=== PATIENT | female | born 1965 | race Caucasian/White ===

== ENCOUNTER → 2020-07-01 11:38 | Outpatient (CLI) | payer BC, SELFPAY | PROVIDERS: PCP Family Medicine; Visit Provider Family Medicine | DX: I49.9 Cardiac arrhythmia, unspecified (principal) ==

== ENCOUNTER → 2020-07-04 09:19 | Outpatient (CLI) | payer BC, SELFPAY ==
--- NOTE | 2020-07-04 09:25 | CA_ITS ---
APPROVED REPORT EXAM: Comprehensive 2D, Doppler, and color-flow Echocardiogram Home Day Care Provider: Zhanna Harrington RT(R) Ht: 5 ft 4 in Wt: 184lbs BSA: 1.89 BP: 122/70 mmHg Indications: dysrhythmia, CP, palpitations, family hx of HD 2D Dimensions LVOT 1.85 cm (M/F) 1.5-2.5 M-Mode Dimensions RVDd 2.00 cm (0.9-2.6) LVDd 4.29 cm (3.5-5.7) LVDs 3.25 cm (3.5-5.7) IVSd 0.75 cm (0.6-1.1) PWd 0.96 cm (0.6-1.1) EF (Teich) 48.50% FS 24.20% EDV (Teich) 82.60 mL ESV (Teich) 42.50 mL LV Diastology E/A Ratio 0.68 Mitral Valve MV A Velocity 107.00 (40-130 cm/s) Left Ventricle Left atrium is mildly enlarged, left ventricle is normal size, mild concentric left ventricular hypertrophy, visually estimated ejection fraction 45%, there is moderate hypokinesis involving mid to distal septum and apical wall. Endocardial surfaces are poorly visualized. Grade 1 diastolic dysfunction seen with tissue Doppler evidence of raise left atrial pressure. Right Ventricle Right atrium and right ventricular normal size and contractility. Aortic Valve Aortic valve is minimally thickened and fibrosed, there is no aortic stenosis, there is mild aortic insufficiency. Mitral Valve Mitral valve is grossly normal, there is mild mitral regurgitation. Tricuspid Valve Tricuspid valve grossly normal, there is mild tricuspid regurgitation, tricuspid regurgitation jet velocity is inadequate for calculation of the right ventricular systolic pressure. Pulmonic Valve Pulmonic valve is poorly visualized. Great Vessels Aortic root is normal size. Pericardium No significant pericardial effusion noted. Conclusion 1. Mildly enlarged left atrium, normal left ventricular size, mild concentric left ventricular hypertrophy, visually estimated ejection fraction of 45% with segmental wall motion abnormality described above, grade 1 diastolic dysfunction seen with tissue Doppler evidence of raise left atrial pressure. 2. Thickened and calcified aortic valve without aortic stenosis, there is mild aortic insufficiency. 3. Mild mitral and tricuspid regurgitation. 4. No significant pericardial effusion noted. Electronically signed by : Mack Kirk, 07/04/2020 15:32:27
== END ==
PROVIDERS: PCP Family Medicine; Visit Provider Family Medicine
DX: I49.9 Cardiac arrhythmia, unspecified (principal)
CPT/HCPCS: 93306

== ENCOUNTER → 2021-12-01 12:51 | Outpatient (CLI) | payer BC, SELFPAY | PROVIDERS: PCP Family Medicine; Visit Provider Family Medicine | DX: R07.9 Chest pain, unspecified (principal); I20.9 Angina pectoris, unspecified; I35.1 Nonrheumatic aortic (valve) insufficiency; I51.9 Heart disease, unspecified; R06.83 Snoring; R40.0 Somnolence; Z95.5 Presence of coronary angioplasty implant and graft | CPT/HCPCS: 93306 ==

== ENCOUNTER → 2021-12-10 07:32 | Outpatient (CLI) | payer BC, SELFPAY ==
--- NOTE | 2021-12-10 07:32 | NM_ITS ---
APPROVED REPORT Exam: Nuclear Stress Test Indication: cad, h/o mi, family hx, c.p., angina Patient Location: Outpatient Stress Tech: Jordyn Grayson [place] Tech:Karla Ríos, ARRT, RT (R)(N) Ht: 5 ft 4 in Wt: 180 lbs Bra Size: 38F HR: 77 bpm BP: 165/89 mmHg BSA: 1.87 m2 BMI: 30.8 History: cad, h/o mi, family hx, c.p., angina Procedure: Patient exercised on Nader protocol 7:46 minutes and sec, resting heart rate 77 bpm, resting blood pressure 165/89 mmHg, with exercise maximum heart rate achived was 169 bpm which is 102 % of the maximum predicted heart rate and blood pressure was 195/94 mmHg. Test was stopped due to soa. Patient denied any complaint of chest pain. Patient has good exercise capacity, achieved 10.1 METs of workload on treadmill, the blood pressure response to exercise was Adequate. Electrocardiogram Resting electrocardiogram shows sinus rhythm, with exercise there is 1.[address] segment depression noted from the baseline EKG. The EKG portion of the exercise Myoview is positive for ischemia. Cardiac Stress and Resting SPECT Images: Cardiac Stress and Resting SPECT images were obtained using technetium 99m Myoview 32.1 mCi stress and 10.83 mCi at rest. Gated SPECT for analysis of segmental wall motion evaluation of the ejection fraction also done. Cardiac stress and resting SPECT images show uniform myocardial activity without segmental ventricular ejection fraction 61% with no regional wall motion abnormality, right ventricle is normal size and contractility. Conclusion: 1. The EKG portion of the exercise Myoview is positive for ischemia, patient has good exercise capacity 15.1 METs of workload on treadmill, the blood pressure response to exercise was adequate, there was no signs of excessive function. 2. No scintigraphic evidence of reversible ischemia seen at this level of computer derived ejection fraction is 61% with no regional wall motion abnormality, right ventricle is normal size and contractility. Electronically signed by : Mack Kirk MD 12/10/2021 19:27:13
--- NOTE | 2021-12-10 09:34 | CA_ITS ---
APPROVED REPORT Exam: Exercise Treadmill Technologist: Jordyn Nogueira, Ht: 5 ft 4 in Wt: 192 lbs BSA: 1.92 m2 HR: 77 bpm BP: 163/89 mmHg Medical History Medications: Aspirin,,,,, Albuterol,,,,, Nitroglycerin,,,,, Vitamin C, D3, B-12,,,,, Stress Test Details Test: Manual Treadmill HR Resting HR: 77 bpm Max Heart Rate (APMHR): 166.277636 bpm Max HR Achieved: 169 bpm Target HR (85% APMHR): 141.230137 bpm % of APMHR: 101.81 Recovery HR: 106 bpm BP Resting BP: 160/94 mmHg Max BP: 195/94 mmHg Recovery BP: 139.0/83.0 mmHg ECG Resting ECG: NSR, PVC Clinical Exercise duration: 07:46 min Highest Stage Achieved: Stage 3: 3.4 mph at 14% grade. Exercise capacity: 10.1 METs Stress ECG Conclusion Exercised 7:46 into Stage III of Nader Protocol. Max HR: 169 % of PM: 102% Max BP: 195/94 METs: 10.1 Test stopped due to: SOA, fatigue. Symptoms: No CP. Arrhythmias/Ectopy: Occ PAC. Rare PVC. ST-T Changes: 1-1.5mm horizontal ST depression laterally and inferiorly. Conclusion: Border (+) EKG changes for ischemia. Myoview images reported separately. Test Summary REST . . . . . . . Sitting REST . . . . . . . Standing REST 04:16 0.0 0.0 77 . 160/ 94 . . Stage 1 01:00 10.0 1.7 107 . . . . Stage 1 02:00 10.0 1.7 114 . . . . Stage 1 03:00 10.0 1.7 118 . 178/ 90 . . Stage 2 01:00 12.0 2.5 128 . . . . Stage 2 02:00 12.0 2.5 136 . . . . Stage 2 03:00 12.0 2.5 139 . 195/ 94 . . Stage 3 01:00 14.0 3.4 161 . . . . Stage 3 . . . . . . . Protocol changed to Manual Treadmill Stage 3 01:46 14.0 3.0 169 . . . Stop exercise at 07:46 RECOVERY 01:00 0.0 0.0 138 . . . . RECOVERY 02:00 0.0 0.0 123 . 188/ 88 . . RECOVERY 03:00 0.0 0.0 109 . 184/ 79 . . RECOVERY 04:00 0.0 0.0 107 . 153/ 73 . . RECOVERY 05:00 0.0 0.0 109 . 153/ 73 . . RECOVERY 06:00 0.0 0.0 103 . 165/ 82 . . RECOVERY 07:00 0.0 0.0 107 . 165/ 82 . . RECOVERY 08:00 0.0 0.0 106 . 165/ 82 . . RECOVERY 09:00 0.0 0.0 101 . 139/ 83 . . RECOVERY 09:18 0.0 0.0 105 . 139/ 83 . . Electronically signed by : Mack Kirk MD 12/10/2021 19:24:11
== END ==
PROVIDERS: PCP Family Medicine; Visit Provider Nurse Practitioner Family
DX: R07.9 Chest pain, unspecified (principal); I20.9 Angina pectoris, unspecified; I35.1 Nonrheumatic aortic (valve) insufficiency; I51.9 Heart disease, unspecified; R06.83 Snoring; R40.0 Somnolence; Z95.5 Presence of coronary angioplasty implant and graft
CPT/HCPCS: 78452; 93017; A9502

== ENCOUNTER → 2021-12-16 13:46 | Outpatient (CLI) | payer BC, SELFPAY | PROVIDERS: PCP Family Medicine; Visit Provider Internal Medicine Cardiovascular Disease | DX: G47.30 Sleep apnea, unspecified (principal); R06.83 Snoring; R40.0 Somnolence | CPT/HCPCS: 95806 ==

== ENCOUNTER 2021-12-17 23:28 | Emergency (ER) | payer BC, SELFPAY ==
--- NOTE | 2021-12-17 23:27 | ECG_ITS ---
APPROVED REPORT Exam: Resting ECG HR:80 bpm ECG Measurements Heart Rate 80 AXES VT 145 P 56 QRSd 80 QRS 31 QT 361 T 65 QTc 397 Conclusion SINUS RHYTHM LOW QRS VOLTAGE IN PRECORDIAL LEADS [QRS DEFLECTION < 1.0 mV IN CHEST LEADS] BORDERLINE ECG UNCONFIRMED REPORT Electronically signed by : Raudel Burger MD 12/19/2021 19:45:54
[2021-12-17 23:28] VITALS: BP 154/92; PULSE 81; RESP 18; TEMP 37.1; O2SAT 97; BMI 30.9
--- NOTE | 2021-12-17 23:30 | XR_ITS ---
PROCEDURE INFORMATION: Exam: XR Chest Exam date and time: 12/17/2021 11:37 PM Age: 56 years old Clinical indication: Other: Palpitations; Prior surgery; Surgery type: Cardiac stent TECHNIQUE: Imaging protocol: XR of the chest. Views: 1 view. COMPARISON: No relevant prior studies available. FINDINGS: Lungs: Unremarkable. No consolidation. Pleural spaces: Unremarkable. No pleural effusion. No pneumothorax. Heart/Mediastinum: Unremarkable. No cardiomegaly. Bones/joints: Mild levoconvex midthoracic scoliosis which may be positional in nature. Otherwise unremarkable. IMPRESSION: No evidence of acute intrathoracic disease.
--- NOTE | 2021-12-17 23:32 | HMH.EDGENADL ---
ED Disposition Clinical Impression: Palpitations Disposition: Home, Self-Care Condition on Discharge: Fair Instructions: DI for Palpitations Additional Instructions: You have been evaluated for palpitations. Your heart has been in normal sinus rhythm while in the emergency department. Please follow-up with your primary care doctor in 1 to 2 days. Call your supervisor cold rolling for outpatient follow-up. They may have you wear a cardiac event monitor, called a Holter monitor. Please return to the emergency department at once if you have any new or worsening symptoms, pain or other concerns. Time of Disposition: 02:17 - Critical Care Critical Care Time: No Attestation: On , the high probability of a clinically significant, sudden or life threatening deterioration of the following system(s) required my full and direct attention, intervention and personal management. The time I documented below is in addition to time spent performing reported procedures but includes the following listed in this critical care notation. Medical Decision Making - Medical Records Medical records reviewed: Yes: I reviewed the patient's medical records. - Nathan Inquiry Pt receiving controlled substance: No Vital Signs: 12/17/21 23:28 12/18/21 00:30 Temperature 98.8 F Temperature Source Oral Pulse Rate 78 Pulse Rate [Right Radial] 81 Respiratory Rate 18 14 Blood Pressure 140/80 Blood Pressure [Right Arm] 154/92 H Blood Pressure Mean [Right Arm] 112 Blood Pressure Source [Right Arm] Automatic Cuff Blood Pressure Position [Right Arm] Sitting 02 Sat by Pulse Oximetry 97 94 L Oxygen Delivery Method Room Air Room Air - Lab Data Lab Results 12/17/21 23:38: WBC 8.5, RBC 4.85, Hgb 14.8, Hct 44.3, MCV 91.3, MCH 30.5, MCHC 33.4, RDW 12.6, Plt Count 278, MPV 8.1, Neut % (Auto) 58.5, Lymph % (Auto) 28.7, [place] % (Auto) 6.4, Eos % (Auto) 3.3, Baso % (Auto) 3.1 H, Neut # (Auto) 5.0, Lymph # (Auto) 2.5, [place] # (Auto) 0.6, Eos # (Auto) 0.3, Baso # (Auto) 0.3 H 12/17/21 23:38: Sodium 139, Potassium 4.0, Chloride 102, Carbon Dioxide 31 H, Anion Gap 10.0, BUN 15, Creatinine 0.80, Estimated Creat Clear 104, Estimated GFR 75, Est GFR ( Amer) 90, Glucose 116 H, Calcium 8.8, Phosphorus 4.1, Magnesium 1.9, Total Bilirubin 0.8, AST 44 H, ALT 26, Alkaline Phosphatase 94, Troponin I < 0.01, Total Protein 7.3, Albumin 4.3, Globulin 3.0, Albumin/Globulin Ratio 1.4, TSH 2.16 Result diagrams: 12/17/21 23:38 12/17/21 23:38 Orders (Tests/Meds): ED MEDICATIONS Discontinued Medications Generic Name Dose Route Start Last Admin Trade Name Freq PRN Reason Stop Dose Admin Aspirin 162 mg 12/17/21 23:51 12/17/21 23:53 Aspirin 81mg Chewable Tablet PO 12/17/21 23:52 162 mg ONCE ONE Administration ORDERS Category Date Time Status Troponin I Q3H Lab 12/18/21 02:45 Ordered Troponin I Q3H Lab 12/18/21 05:45 Ordered - ECG Data Tracing #1 Sinus rhythm with ventricular rate of 80 bpm. QRS 80, QTc 397. No ST segment elevation. No arrhythmia. - SURYA Score for Non-Stemi Age of Patient: 50-59 years old Heart Rate: 70-89 bpm Systolic Blood Pressure: 140-159 mmHg Serum Creatinine: 0.40-0.79 mg/dl CHF [place] Class: I-No CHF Other Risk Factors: None Non-Stemi Risk Score: 78 Medical Decision Narrative: In summary this is a 56-year-old female with history of hypertension, hyperlipidemia, CAD presenting to the emergency department with palpitations. Patient clinically stable on arrival. Vital signs within normal limits. Her initial heart rate is 80 bpm. Concern for cardiac arrhythmia, electrolyte derangement, thyroid disorder, CAD. Will obtain CBC, CMP, chest x-ray, EKG, troponin profile, magnesium, phosphorus level, TSH. EKG shows sinus rhythm without evidence of ischemia or arrhythmia. Laboratory results reassuring. No abnormality of glucose or electrolytes to explain palpitations. Initial troponin undetectable.
[2021-12-17 23:50] LABS: Basophils # 0.3 K/mm3 (0-0.2); Basophils % 3.1 % (0.1-2.0); Eosinophils # 0.3 K/mm3 (0.0-0.4); Eosinophils % 3.3 % (0.1-12.0); Hematocrit 44.3 % (37.0-47.0); Hemoglobin 14.8 g/dL (12.2-16.2); Lymphocytes # 2.5 K/mm3 (0.7-4.5); Lymphocytes % 28.7 % (10-50); Mean Corpuscular HGB Conc 33.4 g/dL (31.8-35.4); Mean Corpuscular Hemoglobin 30.5 pg (27.0-31.2); Mean Corpuscular Volume 91.3 fl (81-99); Mean Platelet Volume 8.1 fl (7.4-10.4); Monocytes # 0.6 K/mm3 (0.1-1.0); Monocytes % 6.4 % (1.7-9.3); Neutrophils % 58.5 % (37.0-80.0); Platelet Count 278 K/mm3 (142-424); Red Blood Count 4.85 M/mm3 (4.20-5.40); Red Cell Distribution Width 12.6 % (11.5-17.5); White Blood Count 8.5 K/mm3 (4.8-10.8)
[2021-12-18 00:01] LABS: Alanine Aminotransferase 26 U/L (12-78); Albumin Level 4.3 g/dl (3.5-5.0); Albumin/Globulin Ratio 1.4 (1.1-1.8); Alkaline Phosphatase 94 U/L (38-126); Aspartate Amino Transferase 44 U/L (14-36); Bilirubin,Total 0.8 mg/dl (0.2-1.3); Blood Urea Nitrogen 15 mg/dl (7-17); Calcium 8.8 mg/dl (8.4-10.2); Carbon Dioxide 31 mmol/L (22.0-30.0); Chloride 102 mmol/L (98-107); Creatinine Clearance Estimated 104 mL/min (50-200); Estimated Glomerular Filt Rate 75 ml/min (>60); GFR (African American) 90 ML/MIN (>60); Glucose 116 mg/dl (74-100); Magnesium 1.9 mg/dl (1.6-2.3); Phosphorous 4.1 mg/dl (2.5-4.5); Sodium 139 mmol/L (136-145); Total Protein,Serum 7.3 g/dl (6.3-8.2)
[2021-12-18 00:25] LABS: Troponin I < 0.01 ng/ml (0.00-0.034)
[2021-12-18 00:30] VITALS: BP 140/80; PULSE 78; RESP 14; O2SAT 94
[2021-12-18 00:31] LABS: Thyroid Stimulating Hormone 2.16 uIU/mL (0.465-4.68)
[2021-12-18 01:00] VITALS: BP 139/77; PULSE 84; RESP 20; O2SAT 93
[2021-12-18 01:30] VITALS: BP 137/78; PULSE 81; RESP 14; O2SAT 92
--- NOTE | 2021-12-18 01:49 | PC.NURSE ---
requesting 2 hr troponin, drawing at this time
--- NOTE | 2021-12-18 01:51 | PC.NURSE ---
TROP DRAWN AT THIS TIME PER MD REQUEST. PT TOLERATED WELL. PT UPDATED WITH PLAN OF CARE AND EXPECTED WAIT TIMES. FAMILY REMAINS AT BEDSIDE.
[2021-12-18 02:00] VITALS: BP 133/76; PULSE 77; RESP 12; O2SAT 91
[2021-12-18 02:29] LABS: Troponin I < 0.01 ng/ml (0.00-0.034)
[2021-12-18 02:30] VITALS: BP 138/72; PULSE 73; RESP 16; O2SAT 94
[2021-12-18 02:50] VITALS: BP 138/72; PULSE 74; RESP 19; TEMP 36.9; O2SAT 95
== END 2021-12-18 03:02 | disposition home or self-care (01) ==
PROVIDERS: Emergency Provider Emergency Medicine; PCP Family Medicine
DX: R00.2 Palpitations (principal); I10 Essential (primary) hypertension; E78.5 Hyperlipidemia, unspecified; I25.10 Atherosclerotic heart disease of native coronary artery without angina pectoris; I25.2 Old myocardial infarction; Z79.899 Other long term (current) drug therapy
CPT/HCPCS: 71045; 80053; 83735; 84100; 84443; 84484; 85025; 93005; 99283

== ENCOUNTER → 2021-12-22 09:41 | Outpatient (CLI) | payer BC, SELFPAY ==
[2021-12-22 12:20] LABS: Basophils # 0.1 K/mm3 (0-0.2); Basophils % 1.6 % (0.1-2.0); Eosinophils # 0.2 K/mm3 (0.0-0.4); Eosinophils % 3.3 % (0.1-12.0); Hematocrit 45.2 % (37.0-47.0); Hemoglobin 15.1 g/dL (12.2-16.2); Lymphocytes # 2.4 K/mm3 (0.7-4.5); Lymphocytes % 43.5 % (10-50); Mean Corpuscular HGB Conc 33.4 g/dL (31.8-35.4); Mean Corpuscular Hemoglobin 30.6 pg (27.0-31.2); Mean Corpuscular Volume 91.6 fl (81-99); Mean Platelet Volume 8.3 fl (7.4-10.4); Monocytes # 0.4 K/mm3 (0.1-1.0); Monocytes % 7.3 % (1.7-9.3); Neutrophils # 2.5 K/mm3 (1.8-7.8); Neutrophils % 44.3 % (37.0-80.0); Platelet Count 272 K/mm3 (142-424); Red Blood Count 4.93 M/mm3 (4.20-5.40); Red Cell Distribution Width 12.5 % (11.5-17.5); White Blood Count 5.6 K/mm3 (4.8-10.8)
[2021-12-22 13:55] LABS: Chloride 102 mmol/L (98-107); Sodium 138 mmol/L (136-145)
[2021-12-22 13:58] LABS: Blood Urea Nitrogen 12 mg/dl (7-17); Estimated Glomerular Filt Rate 87 ml/min (>60); GFR (African American) 106 ML/MIN (>60)
[2021-12-22 13:59] LABS: Calcium 8.4 mg/dl (8.4-10.2); Carbon Dioxide 33 mmol/L (22.0-30.0); Glucose 87 mg/dl (74-100)
== END ==
PROVIDERS: PCP Psychiatry & Neurology Sleep Medicine; Visit Provider Nurse Practitioner Family
DX: Z01.812 Encounter for preprocedural laboratory examination (principal); Z11.52 Encounter for screening for COVID-19; I25.10 Atherosclerotic heart disease of native coronary artery without angina pectoris; I35.1 Nonrheumatic aortic (valve) insufficiency; I51.9 Heart disease, unspecified; R94.30 Abnormal result of cardiovascular function study, unspecified; Z95.5 Presence of coronary angioplasty implant and graft
CPT/HCPCS: 36415; 80048; 85025; C9803; U0003; U0005

== ENCOUNTER 2021-12-25 07:51 | Day surgery (SDC) | payer BC, SELFPAY ==
[2021-12-25] VITALS (14 sets, daily range): BP systolic 91–135; BP diastolic 48–92; PULSE 64–83; RESP 16–18; TEMP 36.3–36.8; O2SAT 95–99; BMI 32.5
--- NOTE | 2021-12-25 | IR_ITS ---
APPROVED REPORT Patient Location: Outpatient Research Biostatistician: HAYLIE Hernandez RT (R) PROCEDURES Left heart catheterization Left ventriculogram Selective coronary angiogram Informed consent was obtained prior to the procedure. COMPLICATIONS NONE Estimated Blood Loss: LESS THAN 10 ML TECHNIQUE One percent lidocaine used to anesthetize the right anterior aspect of the wrist. The right radial artery was accessed via the Seldinger technique. A 6 [place] sheath was placed in the right radial artery. 2.5 mg of verapamil, 800 mcg of nitroglycerin, 1mg Lidocaine and 5000 U Heparin were given through the arterial sheath. The catheter would not pass therefore a 4 [place] JL4 and JR4 catheter were eventually negotiated through the brachial artery with the addition of nitroglycerin to eliminate spasm. After the left heart catheterization left ventriculogram and selective coronary angiogram were complete the apparatus was removed the sheath was removed and hemostasis was achieved using TR banding patient was transferred to the postop already in stable addition ANGIOGRAPHIC RESULTS The left main artery Normal The left anterior descending artery Has a stent in the proximal segment which is widely patent with 30% in-stent restenosis The circumflex artery Nondominant normal The right coronary artery Dominant normal The MUNGUIA ventriculogram reveals Normal 65% The left ventricular end-diastolic pressure 20 mmHg IMPRESSION Widely patent proximal LAD stent Normal ejection fraction Mildly elevated LVEDP PLAN 1. Treatment diastolic dysfunction 2. Continue risk factor modification 3. Medical management Electronically signed by : Jonn Vazquez MD 12/25/2021 10:44:05
--- NOTE | 2021-12-25 11:00 | SUR.PHASEII ---
Received report from Sebastian CoulterRN @ [phone]
--- NOTE | 2021-12-25 11:31 | SUR.PHASEII ---
Pt sitting up eating meal tray provided by staff, tolerating well. Family @ bedside. No complaints voiced. NSR on tely. VSS.
== END 2021-12-25 13:47 | disposition home or self-care (01) ==
LOC: CATHLAB 07:56
PROVIDERS: PCP Family Medicine; Visit Provider Internal Medicine
DX: R07.9 Chest pain, unspecified (principal); Z79.899 Other long term (current) drug therapy; I25.118 Atherosclerotic heart disease of native coronary artery with other forms of angina pectoris; Z82.49 Family history of ischemic heart disease and other diseases of the circulatory system; Z95.5 Presence of coronary angioplasty implant and graft
CPT/HCPCS: 93458; 99152; 99153; C1725; C1769; J1644; Q9967

== ENCOUNTER → 2022-01-02 10:29 | Outpatient (CLI) | payer BC, SELFPAY ==
--- NOTE | 2022-01-02 10:30 | CA_ITS ---
FINAL REPORT TECHNIQUE: Duplex Doppler exam of the right wrist was obtained. CLINICAL HISTORY: E78.5 - Hyperlipidemia, unspecified FINDINGS: There is right radial thrombus extending from the wrist to the elbow. No evidence of pseudoaneurysm or AV fistula. IMPRESSION: Right radial thrombus extending from wrist to elbow. Reviewed, Interpreted and Dictated by Willie Wilson III, MD Transcribed by Lauren Dos Santos Authenticated by Willie Wilson III, MD on 01/02/2022 12:49:32 PM [facility]
== END ==
PROVIDERS: PCP Family Medicine; Visit Provider Internal Medicine Cardiovascular Disease
DX: I25.10 Atherosclerotic heart disease of native coronary artery without angina pectoris (principal); I35.1 Nonrheumatic aortic (valve) insufficiency; I10 Essential (primary) hypertension; E78.5 Hyperlipidemia, unspecified; Z95.5 Presence of coronary angioplasty implant and graft
CPT/HCPCS: 93931

== ENCOUNTER 2025-04-19 18:13 | Emergency (ER) | payer BC, SELFPAY ==
--- OUTSIDE RECORDS SUMMARY | 2025-04-14 12:43 | XMS_ITS | Encounter Summary ---
[facility] Address [address] [place] [address] Care Team Providers Care Aids Social Worker Name Role Phone Nita Chanel DO Primary Care Provider [phone] Reason for Referral * Rehabilitation - Outpatient (Routine) - Pending Review Specialty Diagnoses / Procedures Referred By Contact Referred To Contact Cardiac Rehabilitation Diagnoses Elevated troponin Procedures UT OFFICE/OUTPATIENT NEW MODERATE MDM 45 MINUTES Tracey Cheng MD [address] [place] [address] Phone: tel: fax: [facility] [address] [place] [address] Phone: tel: Referral ID Status Reason Start Date Expiration Date V isits Requested Visits Authorized Pending Review 04/16/2025 07/16/2026 1 1 * Diagnostic Medical (Routine) - Pending Review Specialty Diagnoses / Procedures Referred By Bismark t Referred To Contact Procedures Cardiac Catheterization/Vascular Study Tracey Cheng MD [address] [place] [address] Phone: tel: fax: Referral ID Status Reason Start Date Expiration Date V isits Requested Visits Authorized Pending Review 04/16/2025 07/16/2026 1 1 Reason for Visit * Reason Comments Chest Pain * Auth/Cert Specialty Diagnoses / Procedures Referred By Contac t Referred To Contact Diagnoses NSTEMI (non-ST elevated myocardial infarction) Referral ID Status Reason Start Date Expiration Date Visits Re quested Visits Authorized [id number] 1 1 Encounter Details Date Type Department Care Team (Late st Contact Info) Description 04/14/2025 12:43 PM EDT - 04/16/2025 6:38 PM EDT Hospital Encounter [facility] [address] [place] [address] Tommie Miranda DO [address] [place], [place] [id number] Annel Jules MD [address] [facility] [address] [place], [place] [id number] Edin Rosen MD [address] [facility] [address] [place] [address] NSTEMI (non-ST elevated myocardial infarction) (Primary Dx); Chest pain, unspecified type; Elevated troponin Discharge Disposition: Home or Self Care Social History Tobacco Use Types Packs/Day Years Used Date Smoking Tobacco: Never Smokeless Tobacco: Never Alcohol Use Standard Drinks/Week Comments No 0 (1 standard drink = 0.6 oz pur e alcohol) [facility] Utilities Answer Date Recorded In the past 12 months has [employer], gas, oil, or water [employer] threatened to shut off services in your home? No 04/16/2025 AUDIT-C Answer Date Recorded Q1: How often do you have a drink containing alcohol? Never 04/16/2025 Q2: How many drinks containi ng alcohol do you have on a typical day when you are drinking? Patient does not drink Q3: How often do you have si x or more drinks on one occasion? Never 04/16/2025 Overall Financial Resource Strain (CARDIA) Answe r Date Recorded How hard is it for you to pa y for the very basics like food, housing, medical care, and heating? Not hard at all 04/16/2025 [facility] of Occupat ional Health - Occupational Stress Questionnaire Answer Date Recorded Do you feel stress - tense, restless, nervous, or anxious, or unable to sleep at night because your mind is troubled all the time - these days? Not at all 04/16/2025 Exercise Vital Sign Answer Date Recorde d On average, how many days pe r week do you engage in moderate to strenuous exercise (like a brisk walk)? 0 days 04/16/2025 On average, how many minutes do you engage in exercise at this level? 0 min 04/16/2025 Hunger Vital Sign Answer Date Recorded Within the past 12 months, y ou worried that your food would run out before you got the money to buy more. Never true 04/16/20 25 Within the past 12 months, t he food you bought just didn't last and you didn't have money to get more. Never true 04/16/2025 PRAPARE - Transportation Answer Date Re corded In the past 12 months, has l ack of transportation kept you from medical appointments or from getting medications? No 03/28 In the past 12 months, has l ack of transportation kept you from meetings, work, or from getting things needed for daily living? No 04/16/2025 Abuse Screen Answer Date Recorded Feels Unsafe at Home or Work/School no 04/16/2025 Feels Threatened by Someone no 03/28 Does Anyone Try to Keep You From Having Contact with Others or Doing Things Outside Your Home? no 04/16/2025 Physical Signs of Abuse Present no 04/16/2025 Housing Stability Answer Date Recorded Current Living Arrangements home 03/28 Potentially Unsafe Housing Conditions none 04/16/2025 Family and Community Support Answer Nahun e Recorded If for any reason you need h elp with day-to-day activities such as bathing, preparing meals, shopping, managing finances, etc., do you get the help you need? I don't need any help 04/16/2025 How often do you feel lonely or isolated from those around you? Never 04/16/2025 Employment Answer Date Recorded Do you want help finding or keeping work or a job? I do not need or want help 04/16/2025 Disabilities Answer Date Recorded Difficulty Concentrating, Remembering or Making Decisions no 04/16/2025 Difficulty Managing Errands Independently no 04/16/2025 Education Answer Date Recorded Do you want help with school or training? For example, starting or completing job training or getting a high school diploma, GED or equivalent No 04/16/2025 Preferred Language Polish 04/16/2025 PHQ-2 Answer Date Recorded Patient Health Questionnaire-2 Score 0 04/16/2025 Comments No Sex and Gender Information Value Date Recorded Sex Assigned at Not on file Legal Sex Female 10:33 AM EDT Gender Identity Not on file Sexual Orientation Not on file documented as of this encounter Last Filed Vital Signs Vital Sign Reading Time Taken Comments Blood Pressure 139/78 04/16/2025 5:35 PM EDT Pulse 74 04/16/2025 5:35 PM EDT Temperature 36.9 C (98.4 F) 04/16/2025 5:35 PM EDT Respiratory Rate 16 04/16/2025 5:35 PM EDT Oxygen Saturation 94% 04/16/2025 5:35 PM EDT Inhaled Oxygen Concentration - - Weight 82.6 kg (182 lb) 04/15/2025 3:03 PM EDT Height 163 cm (5' 4.17 ) 04/15/2025 3:03 PM EDT Body Mass Index 31.07 04/15/2025 3:03 PM EDT documented in this encounter Functional Status * Audit-C Score Answer Date of Assessment Author 0 04/16/2025 10:03 AM EDT Sarita Shirley RN * Question Answer Date of Assessment Author Q1: How often do you have a drink containing alcohol? Never 04/16/2025 10:03 AM EDT Sarita Shirley RN Q2: How many drinks containing alcohol do you have on a typical day when you are drinking? Patient does not drink 04/16/2025 10:03 AM EDT Sarita Shirley RN Q3: How often do you have six or more drinks on one occasion? Never 04/16/2025 10:03 AM EDT Sarita Shirley RN * Over the past 2 weeks, how often have you been bothered by any of the following problems? Question Answer Date of Assessment Author Patient Health Questionnaire -2 Score 0 04/16/2025 10:03 AM EDT Sarita Shirley RN * Calculated C-SSRS Risk Score (Lifetime/Recent) Answer Date of Assessment Author No Risk Indicated 04/14/2025 12:53 PM EDT Ivania Pak RN * Mallory Suicide Severity Rating Scale (Screener/Recent Self-Report) Question Answer Date of Assessment Author 1. Wish to be (Past 1 Month) No 025 12:53 PM EDT Ivania Pak RN 2. Non-Specific Active Suici virgil Thoughts (Past 1 Month) No 04/14/2025 12:53 PM EDT Tessa Pak RN 6. Suicidal Behavior (Lifetime) No 12:53 PM EDT Ivania Pak RN * Question Answer Date of Assessment Author Little interest or pleasure in doing things Not at all 04/16/2025 10:03 AM Sarita Yanez RN Feeling down, depressed, or hopeless Not at all 04/16/2025 10:03 AM EDSarita Conley RN documented as of this encounter Discharge Summaries * Edin Rosen MD - 04/16/2025 4:21 PM EDT Images from the original note were not included. [facility] Medicine Services DISCHARGE SUMMARY Patient Name: Kallie Maria : 1965 Date of Admission: 04/14/2025 12:43 PM Date of Discharge: 04/16/2025 Primary Care Physician: Nita Chanel DO Consults Date and Time Order Name Status Description 04/14/2025 8:43 PM Inpatient Cardiology Consult Completed Hospital Course Active Hospital Problems Diagnosis POA Chest pain [R07.9] Yes NSTEMI (non-ST elevated myocardial infarction) [I21.4] Yes Resolved Hospital Problems No resolved problems to display. Hospital Course: darwin Maria is a 59 y.o. female with past medical history significant for CAD, AMI, DVT, HTN, and HLD who presents to the ED via EMS due to worsening substernal chest pain. Patient reports she was working in her yard and had came inside to cool off when she began having substernal chest pain. She is admitted with NSTEMI NSTEMI History of CAD s/p stent Hyperlipidemia - Patient presenting with substernal chest pain, resolved with nitro - Troponin elevated, EKG reviewed showed NSR - Cardiology consulted she is s/p C today, with findings of possible myopericarditis, recommend to initiate colchicine 0.6 mg daily x 1 month, with follow-up with primary emt dispatcher in 1 month. - Patient reportedly intolerant to Crestor, currently on high-dose atorvastatin, tolerating this okay, Hypertension - BP currently normotensive, not on any meds ??History of DVT Discharge Follow Up Recommendations for outpatient labs/diagnostics: Follow-up with PCP in 1 week Follow-up with cardiology as scheduled Day of Discharge HPI: See day of discharge progress note Vital Signs: Temp: [97.8 ??F (36.6 ??C)-98.4 ??F (36.9 ??C)] 98.4 ??F (36.9 ??C) Heart Rate: [58-86] 74 Resp: [14-18] 16 BP: (112-150)/(63-109) 139/78 Physical Exam: See day of discharge progress note Pertinent and/or Most Recent Results LAB RESULTS: Lab 04/15/2511604/14/25 1824 04/14/25 1303 WBC 8.00 -- 6.19 HEMOGLOBIN 14.0 -- 14.6 HEMATOCRIT 41.8 -- 43.2 PLATELETS 222 -- 225 NEUTROS ABS 3.91 -- 3.30 IMMATURE GRANS (ABS) 0.03 -- 0.01 LYMPHS ABS 3.10 -- 2.20 MONOS ABS 0.73 -- 0.45 EOS ABS 0.16 -- 0.17 MCV 87.1 -- 86.2 PROTIME -- 13.5 -- APTT -- 26.5* -- Lab 04/15/25 0117 04/14/25 1303 SODIUM 139 139 POTASSIUM 3.9 4.1 CHLORIDE 102 102 CO2 28.5 25.9 ANION GAP 8.5 11.1 BUN 12.4 10.4 CREATININE 0.72 0.71 EGFR 97.7 99.3 GLUCOSE 89 98 CALCIUM 9.0 9.1 MAGNESIUM 2.0 -- HEMOGLOBIN A1C 5.23 -- TSH 1.500 -- Lab 04/15/25 0117 04/14/25 1303 TOTAL PROTEIN 6.5 6.9 ALBUMIN 3.9 4.2 GLOBULIN 2.6 2.7 ALT (SGPT) 18 21 AST (SGOT) 27 25 BILIRUBIN 0.7 0.8 ALK PHOS 80 89 LIPASE -- 21 Lab 04/14/25 1824 04/14/25 1434 04/14/25 1303 PROBNP -- -- 138.0 HSTROP T -- 49* 14* PROTIME 13.5 -- -- INR 0.97 -- -- Lab 04/15/25 0117 CHOLESTEROL 229* LDL CHOL 150* HDL CHOL 68* TRIGLYCERIDES 65 Brief Urine Lab Results (Last result in the past 365 days) Color Clarity Blood Leuk Est Nitrite Protein CREAT Urine HCG 09/14/24 1147 Yellow Clear Negative Negative Negative Negative Microbiology Results (last 10 days) No results found for the last 240 hours. Cardiac Catheterization/Vascular Study Result Date: 04/16/2025 FINAL No significant coronary artery disease with a patent LAD stent. I suspect that the patient has mildpericarditis. RECOMMENDATIONS: Continue management the patient with known coronary disease and previous stent placement. Indications: Elevated troponin in a patient with atypical chest pain and knowncoronary disease with a previous stent placement to the LAD. Access: Right radial artery was attempted however even with ultrasound the artery could not be accessed. Right femoral access was obtained. Estimated blood loss: Less than 15 mL Procedures: Left heart catheterization. Selective coronary angiography. Procedure narrative: The patient was brought to the catheterization lab in a fasting condition. Access site was prepped and draped in standard sterile fashion. Lidocaine was injected and arterial access was obtained by percutaneous anterior wall puncture technique. A 6 Hong Konger arterial sheath was placed in the right femoral artery using a modified Seldinger technique. Selective coronary arteriography was performed using the Margarette technique with a 6 Hong Konger 4 curved Margarette right catheter and a 6 [place]er 4 curved Margarette left catheter. Nonionic contrast was used and was injected manually. No left ventriculogram was performed. LV pressures were obtained. Following the procedure the patient's sheath was Tegaderm in place and was pulled in recovery. There were no complications. Contrast: 50 ml Hemodynamic Findings: LV pressure: 150/2/10 mmHg, on pull back no gradient was recorded across the aortic valve. Ao pressure: 150/70 mmHg Left ventriculography: Not performed Angiographic Findings: RCA: The right coronary artery is dominant for the posterior circulation and is a small vessel free of significant disease. LMCA: The left main coronary artery gives rise to the LAD and circumflex vessels and is free of disease. Circumflex: The circumflex coronary gives rise to a tiny first obtuse marginal branch small second obtuse marginal branch a large third obtuse marginal branch and moderate fourth obtuse marginal branch as well as a left atrial branch. The circumflex and its branches contain no disease. LAD: The LAD gives rise to a very large first diagonal branch multiple small diagonals and terminates as a small apical recurrent branch. The LAD has been stented proximallyand there is a little bit of narrowing at the distal aspect of the stent but no more than 30%. No other significant disease is seen within the LAD or its branches. CT Angiogram Chest Pulmonary Embolism Result Date: 04/14/2025 CT ANGIOGRAM CHEST PULMONARY EMBOLISM Date of Exam: 04/14/2025 3:55 PM EDT Indication: Pulmonary Embolism. Comparison: None available. Technique: Axial CT images were obtained of the chest after the uneventful intravenous administration of 85 mL [id number]-370 utilizing pulmonary embolism protocol. In ad dition, a 3-D volume rendered image was created for interpretation. Reconstructed coronal and sagittal images were also obtained. Automated exposure control and iterative construction methods were used. Findings: Diagnostic quality: Contrast opacification of the pulmonary arterial circulation is fide quate for assessment of pulmonary embolism. Study is not significantly limited by respiratory motion artifact. Pulmonary arteries: No evidence of pulmonary embolus. Normal main pulmonary artery diameter. Heart and pericardium:No flattening of the interventricular septum. Coronary stent seen. No substantial pericardial effusion. Vessels:Normal caliber aorta. No atherosclerotic calcification. No evidence of acute aortic injury. Venous structures including the superior vena cava and inferior vena cava appear grossly patent. Mediastinum:Unremarkable appearance of the esophagus. No enlarged or suspicious mediastinal or hilar lymphadenopathy. No anterior mediastinal masses. Small hiatal hernia. Lower neck:No suspicious or enlarged supraclavicular or axillary lymphadenopathy. Normal appearance of the thyroid. Pulmonary parenchyma:No evidence of pulmonary infarct. No suspicious pulmonary nodules. Pleura:No evidence of pleural effusion or pneumothorax. Airways:Central and segmental airways areclear. Chest wall and bones:No acute osseous abnormality. No substantial degenerative changes of thoracic spine. Unremarkable appearance of soft tissues. Upper abdomen:No lesion seen within the visualized liver. Cholecystectomy clips. Impression: No evidence of pulmonary embolus. Electronically Signed: Gurwinder Kimball MD :56 PM EDT Workstation ID: [id number] XR Chest 1 View Result Date: 04/14/2025 XR CHEST 1 VW Date of Exam: 04/14/2025 12:50 PM EDT Indication: Chest Pain Triage Protocol Comparison: Chest radiograph 05/06/2022. Findings: Cardiomediastinal silhouette is within normal limits. No focal consolidation. No pleural effusion or pneumothorax. Osseous structures are unremarkable. Impression: No acute cardiopulmonary findings. Electronically Signed: Ignacio Fiore MD 04/14/2025 1:43 PM EDT Workstation ID: [id number] Results for orders placed during the hospital encounter of 04/14/25 Adult Transthoracic Echo Complete W/ Cont if Necessary Per Protocol 04/15/2025 3:13 PM Interpretation Summary Left ventricular systolic function is normal. Calculated left ventricular 3D EF = 58% Left ventricular ejection fraction appears to be 56 - 60%. Left ventricular diastolic function was normal. There is a small (<1cm) pericardial effusion adjacent to the right ventricle. There is no evidence of cardiac tamponade. Plan for Follow-up of Pending Labs/Results: Discharge Details Discharge Medications New Medications Instructions Start Date atorvastatin 80 MG tablet Commonly known as: LIPITOR 80 mg, Oral, Nightly colchicine 0.6 MG tablet 0.6 mg, Oral, Daily Changes to Medications Instructions Start Date nitroglycerin 0.4 MG SL tablet Commonly known as: NITROSTAT What changed: how much to take how to take this when to take this reasons to take this additional instructions 1 under the tongue as needed for angina, may repeat q5mins for up three doses Continue These Medications Instructions Start Date albuterol sulfate HFA 108 (90 Base) MCG/ACT inhaler Commonly known as: PROVENTIL HFA;VENTOLIN HFA;PROAIR HFA 2 puffs, Every 6 Hours PRN aspirin 81 MG chewable tablet 81 mg, Oral, Daily, OTC ezetimibe 10 MG tablet Commonly known as: ZETIA 10 mg, Daily levocetirizine 5 MG tablet Commonly known as: XYZAL 5 mg, Every Evening multivitamin with minerals tablet tablet 1 tablet, Oral, Daily, OTC Allergies Allergen Reactions Propofol Shortness Of Breath Avelox [Moxifloxacin] Hallucinations Ketamine And Related Nausea And Vomiting and Delirium Codeine GI Intolerance Discharge Disposition: Home or Self Care Diet: Hospital: Diet Order Procedures Diet: Cardiac; Healthy Heart (2-3 Na+); Fluid Consistency: Thin (IDDSI 0) Activity: Restrictions or Other Recommendations: CODE STATUS: Code Status and Medical Interventions: CPR (Attempt to Resuscitate); Full Support Ordered at: 04/14/25 6850 Code Status (Patient has no pulse and is not breathing): CPR (Attempt to Resuscitate) Medical Interventions (Patient has pulse or is breathing): Full Support Level Of Support Discussed With: Patient No future appointments. Additional Instructions for the Follow-ups that You Need to Schedule Ambulatory Referral to Cardiac Rehab As directed Edin Rosen MD 04/16/25 Time Spent on Discharge: I spent 15 minutes on this discharge activity which included: [id number] with the patient, reviewing the data in the system, coordination of the care with the nursing staff as well as consultants, documentation, and entering orders. documented in this encounter Discharge Instructions * Attachments The following attachments cannot be sent through Care Everywhere. * Atorvastatin Tablets (Polish) * Colchicine Tablets (Polish) * Aspirin Tablets (Polish) * Coronary Angiogram Care After (Polish) * Nonspecific Chest Pain Adult (Polish) documented in this encounter Medications at Time of Discharge albuterol sulfate HFA 108 (90 Base) MCG/ACT inhaler Inhale 2 puffs Every 6 (Six) Hours As Needed for Wheezing or Shortness of Air. aspirin 81 MG chewable tablet Chew 1 tablet Daily. OTC atorvastatin (LIPITOR) 80 MG tablet Take 1 tablet by mouth Every Night. 90 tablet 04/16/2025 ezetimibe (ZETIA) 10 MG tablet Take 1 tablet by mouth Daily. levocetirizine (XYZAL) 5 MG tablet Take 1 tablet by mouth Every Evening. OTC Multiple Vitamins-Mineral s (MULTIVITAMIN ADULT PO) Take 1 tablet by mouth Daily. OTC nitroglycerin (NITROSTAT) 0.4 MG SL tablet 1 under the tongue as needed for angina, may repeat q5mins for up three doses 100 tablet 11 08/17/2020 colchicine 0.6 MG tablet Take 1 tablet by mouth Daily. 30 tablet 04/16/2025 documented as of this encounter Progress Notes * Tracey Cheng MD - 04/16/2025 4:00 PM EDT ERROR * Jessica Arana PA-C - 04/16/2025 12:14 PM EDT [facility] INPATIENT PROGRESS NOTE Date of Admission: 04/14/2025 Date of Service: 04/16/25 Identification: Kallie Maria is a 59 y.o. female Primary Care Physician: Nita Chanel DO Chief Complaint: NSTEMI Problem List: Chest pain NSTEMI (non-ST elevated myocardial infarction) Subjective/Interval History Patient rested well this morning. Continues to be on heparin drip. No chest pain currently. Objective Vitals: BP 118/63 (BP Location: Left arm, Patient Position: Lying) Pulse 58 Temp 97.9 ??F (36.6 ??C) (Oral) Resp 16 Ht 163 cm (64.17 ) Wt 82.6 kg (182 lb) LMP 05/15/2020 (Approximate) SpO2 92% BMI 31.07 kg/m?? Intake/Output Summary (Last 24 hours) at 04/16/2025 1215 Last data filed at 04/16/2025 0418 Gross per 24 hour Intake -- Output 1150 ml Net -1150 ml Current Medications: aspirin, 81 mg, Oral, Daily atorvastatin, 80 mg, Oral, Nightly budesonide-formoterol, 2 puff, Inhalation, BID - RT pharmacy consult - MTM, , Not Applicable, Daily sodium chloride, 10 mL, Intravenous, Q12H heparin, 10 Units/kg/hr, Last Rate: 10 Units/kg/hr (04/16/25 0823) Pharmacy to Dose Heparin, Vitals reviewed. Constitutional: Appearance: Healthy appearance. Not in distress. HENT: Mouth/Throat: Pharynx: Oropharynx is clear. Neck: Vascular: No carotid bruit or JVD. Pulmonary: Effort: Pulmonary effort is normal. Breath sounds: No decreased breath sounds. No wheezing. No rhonchi. Cardiovascular: Normal rate. Regular rhythm. Murmurs: There is no murmur. No rub. Comments: Right radial and ulnar pulses Pulses: Intact distal pulses. Edema: Peripheral edema absent. Abdominal: General: There is no distension. Palpations: Abdomen is soft. Tenderness: There is no abdominal tenderness. Musculoskeletal: General: No deformity. Skin: General: Skin is warm and dry. Neurological: General: No focal deficit present. Mental Status: Alert and oriented to person, place and time. Data Review: Results from last 7 days Lab Units 04/15/25 0117 04/14/25 1303 WBC 10*3/mm3 8.00 6.19 HEMOGLOBIN g/dL 14.0 14.6 HEMATOCRIT % 41.8 43.2 PLATELETS 10*3/mm3 222 225 Results from last 7 days Lab Units 04/15/25 0117 04/14/25 1303 SODIUM mmol/L 139 139 POTASSIUM mmol/L 3.9 4.1 CHLORIDE mmol/L 102 102 CO2 mmol/L 28.5 25.9 BUN mg/dL 12.4 10.4 CREATININE mg/dL 0.72 0.71 GLUCOSE mg/dL 89 98 Results from last 7 days Lab Units 04/15/25 0117 HEMOGLOBIN A1C % 5.23 Results from last 7 days Lab Units 04/15/25 0117 CHOLESTEROL mg/dL 229* TRIGLYCERIDES mg/dL 65 HDL CHOL mg/dL 68* LDL CHOL mg/dL 150* Results from last 7 days Lab Units 04/15/25 0117 TSH uIU/mL 1.500 Results from last 7 days Lab Units 04/14/25 1824 PROTIME Seconds 13.5 INR 0.97 APTT seconds 26.5* Results from last 7 days Lab Units 04/14/25 1434 04/14/25 1303 HSTROP T ng/L 49* 14* Results from last 7 days Lab Units 04/14/25 1303 PROBNP pg/mL 138.0 CT Angiogram Chest Pulmonary Embolism Result Date: 04/14/2025 Impression: No evidence of pulmonary embolus. Electronically Signed: Gurwinder Kimball MD 54:56 PM EDT Workstation ID: [id number] XR Chest 1 View Result Date: 04/14/2025 Impression: No acute cardiopulmonary findings. Electronically Signed: Ignacio Fiore MD 04/14/2025 1:43 PM EDT Workstation ID: [id number] Results for orders placed during the hospital encounter of 04/14/25 Adult Transthoracic Echo Complete W/ Cont if Necessary Per Protocol 04/15/2025 3:13 PM Interpretation Summary Left ventricular systolic function is normal. Calculated left ventricular 3D EF = 58% Left ventricular ejection fraction appears to be 56 - 60%. Left ventricular diastolic function was normal. There is a small (<1cm) pericardial effusion adjacent to the right ventricle. There is no evidence of cardiac tamponade. RESULTS REVIEW: I reviewed the patient's new clinical results. I personally reviewed the patient's EKG/Telemetry data Assessment: NSTEMI with a history of CAD Continue heparin drip until 1 hour prior to left heart catheterization with Dr. Cheng today. Hyperlipidemia Plan: Proceed with left heart catheterization this afternoon with Dr. Cheng via the right radial approach. Unless specified heparin drip will only stay on until previously 1 hour prior to the heartcatheterization. Continue ASA 81 and Lipitor 80. Further recommendations after the heart cath. Electronically signed by Jessica Arana PA-C, 04/16/25, 12:18 PM EDT. Cosigned by Navneet Barnes III, MD at 04/16/2025 12:41 PM EDT Associated attestation - Navneet Barnes III, MD - 04/16/2025 12:41 PM EDT I have reviewed this documentation and agree. * Edin Rosen MD - 04/16/2025 6:07 AM EDT Images from the original note were not included. [facility] Medicine Services PROGRESS NOTE Patient Name: Kallie Maria : 1965 Date of Admission: 04/14/2025 Primary Care Physician: Nita Chanel DO Subjective Subjective CC: Follow-up chest pain HPI: No acute events overnight, patient did get some rest, denies any chest pain Objective Objective Vital Signs: Temp: [97.8 ??F (36.6 ??C)-98.7 ??F (37.1 ??C)] 97.8 ??F (36.6 ??C) Heart Rate: [58-80] 80 Resp: [16-18] 16 BP: (112-129)/(73-86) 123/73 Physical Exam: Constitutional: No acute distress, awake, alert HENT: NCAT, mucous membranes moist Respiratory: Clear to auscultation bilaterally, respiratory effort normal Cardiovascular: RRR, no murmurs, rubs, or gallops Gastrointestinal: Positive bowel sounds, soft, nontender, nondistended Musculoskeletal: No bilateral ankle edema Psychiatric: Appropriate affect, cooperative Neurologic: Oriented x 3, nonfocal Skin: No rashes Results Reviewed: LAB RESULTS: Lab 04/15/25 0117 04/14/25 1824 04/14/25 1434 04/14/25 1303 WBC 8.00 -- -- 6.19 HEMOGLOBIN 14.0 -- -- 14.6 HEMATOCRIT 41.8 -- -- 43.2 PLATELETS 222 -- -- 225 NEUTROS ABS 3.91 -- -- 3.30 IMMATURE GRANS (ABS) 0.03 -- -- 0.01 LYMPHS ABS 3.10 -- -- 2.20 MONOS ABS 0.73 -- -- 0.45 EOS ABS 0.16 -- -- 0.17 MCV 87.1 -- -- 86.2 PROTIME -- 13.5 -- -- APTT -- 26.5* -- -- HSTROP T -- -- 49* 14* Lab 04/15/25 0117 04/14/25 1303 SODIUM 139 139 POTASSIUM 3.9 4.1 CHLORIDE 102 102 CO2 28.5 25.9 ANION GAP 8.5 11.1 BUN 12.4 10.4 CREATININE 0.72 0.71 EGFR 97.7 99.3 GLUCOSE 89 98 CALCIUM 9.0 9.1 MAGNESIUM 2.0 -- HEMOGLOBIN A1C 5.23 -- TSH 1.500 -- Lab 04/15/25 0117 04/14/25 1303 TOTAL PROTEIN 6.5 6.9 ALBUMIN 3.9 4.2 GLOBULIN 2.6 2.7 ALT (SGPT) 18 21 AST (SGOT) 27 25 BILIRUBIN 0.7 0.8 ALK PHOS 80 89 LIPASE -- 21 Lab 04/14/25 1824 04/14/25 1434 04/14/25 1303 PROBNP -- -- 138.0 HSTROP T -- 49* 14* PROTIME 13.5 -- -- INR 0.97 -- -- Lab 04/15/25 0117 CHOLESTEROL 229* LDL CHOL 150* HDL CHOL 68* TRIGLYCERIDES 65 Brief Urine Lab Results (Last result in the past 365 days) Color Clarity Blood Leuk Est Nitrite Protein CREAT Urine HCG 09/14/24 1147 Yellow Clear Negative Negative Negative Negative Microbiology Results Abnormal None CT Angiogram Chest Pulmonary Embolism Result Date: 04/14/2025 CT ANGIOGRAM CHEST PULMONARY EMBOLISM Date of Exam: 04/14/2025 3:55 PM EDT Indication: Pulmonary Embolism. Comparison: None available. Technique: Axial CT images were obtained of the chest after the uneventful intravenous administration of 85 mL Isovue-370 utilizing pulmonary embolism protocol. In ad dition, a 3-D volume rendered image was created for interpretation. Reconstructed coronal and sagittal images were also obtained. Automated exposure control and iterative construction methods were used. Findings: Diagnostic quality: Contrast opacification of the pulmonary arterial circulation is fide quate for assessment of pulmonary embolism. Study is not significantly limited by respiratory motion artifact. Pulmonary arteries: No evidence of pulmonary embolus. Normal main pulmonary artery diameter. Heart and pericardium:No flattening of the interventricular septum. Coronary stent seen. No substantial pericardial effusion. Vessels:Normal caliber aorta. No atherosclerotic calcification. No evidence of acute aortic injury. Venous structures including the superior vena cava and inferior vena cava appear grossly patent. Mediastinum:Unremarkable appearance of the esophagus. No enlarged or suspicious mediastinal or hilar lymphadenopathy. No anterior mediastinal masses. Small hiatal hernia. Lower neck:No suspicious or enlarged supraclavicular or axillary lymphadenopathy. Normal appearance of the thyroid. Pulmonary parenchyma:No evidence of pulmonary infarct. No suspicious pulmonary nodules. Pleura:No evidence of pleural effusion or pneumothorax. Airways:Central and segmental airways areclear. Chest wall and bones:No acute osseous abnormality. No substantial degenerative changes of thoracic spine. Unremarkable appearance of soft tissues. Upper abdomen:No lesion seen within the visualized liver. Cholecystectomy clips. Impression: Impression: No evidence of pulmonary embolus. Electronically Signed: Gurwinder Kimball MD 04/14/2025 4:56 PM EDT Workstation ID: [id number] XR Chest 1 View Result Date: 04/14/2025 XR CHEST 1 VW Date of Exam: 04/14/2025 12:50 PM EDT Indication: Chest Pain Triage Protocol Comparison: Chest radiograph 05/06/2022. Findings: Cardiomediastinal silhouette is within normal limits. No focal consolidation. No pleural effusion or pneumothorax. Osseous structures are unremarkable. Impression: Impression: No acute cardiopulmonary findings. Electronically Signed: Ignacio Fiore MD 04/14/2025 1:43 PM EDT Workstation ID: [id number] Results for orders placed during the hospital encounter of 04/14/25 Adult Transthoracic Echo Complete W/ Cont if Necessary Per Protocol 04/15/2025 3:13 PM Interpretation Summary Left ventricular systolic function is normal. Calculated left ventricular 3D EF = 58% Left ventricular ejection fraction appears to be 56 - 60%. Left ventricular diastolic function was normal. There is a small (<1cm) pericardial effusion adjacent to the right ventricle. There is no evidence of cardiac tamponade. Current medications: Scheduled Meds:aspirin, 81 mg, Oral, Daily atorvastatin, 80 mg, Oral, Nightly budesonide-formoterol, 2 puff, Inhalation, BID - RT pharmacy consult - MTM, , Not Applicable, Daily sodium chloride, 10 mL, Intravenous, Q12H Continuous Infusions:heparin, 10 Units/kg/hr, Last Rate: 10 Units/kg/hr (04/16/25 0601) Pharmacy to Dose Heparin, PRN Meds:. acetaminophen OR acetaminophen OR acetaminophen albuterol sulfate HFA senna-docusate sodium AND polyethylene glycol AND bisacodyl AND bisacodyl Calcium Replacement - Follow Nurse / BPA Driven Protocol Magnesium Standard Dose Replacement - Follow Nurse / BPA Driven Protocol ondansetron ODT OR ondansetron Pharmacy to Dose Heparin Phosphorus Replacement - Follow Nurse / BPA Driven Protocol Potassium Replacement - Follow Nurse / BPA Driven Protocol sodium chloride sodium chloride sodium chloride Assessment & Plan Assessment & Plan Active Hospital Problems Diagnosis POA Chest pain [R07.9] Yes NSTEMI (non-ST elevated myocardial infarction) [I21.4] Yes Resolved Hospital Problems No resolved problems to display. Brief Hospital Course to date: Kallie Maria is a 59 y.o. female with past medical history significant for CAD, AMI, DVT, HTN, and HLD who presents to the ED via EMS due to worsening substernal chest pain. Patient reports she was working in her yard and had came inside to cool off when she began having substernal chest pain. She is admitted with NSTEMI NSTEMI History of CAD s/p stent Hyperlipidemia - Patient presenting with substernal chest pain, resolved with nitro - Troponin elevated, EKG reviewed showed NSR - Cardiology consulted and following, plan for [facility] today, continue aspirin and heparin gtt. - Patient reportedly intolerant to Crestor, currently on high-dose atorvastatin, if unable to tolerate plan to DC with PCSK9 inhibitor at discharge. Hypertension - BP currently normotensive, not on any meds ??History of DVT Expected Discharge Location and Transportation: Home Expected Discharge Expected Discharge Date: 2025; Expected Discharge Time: VTE Prophylaxis: Pharmacologic VTE prophylaxis orders are present. AM-PAC 6 Clicks Score (PT): 24 (04/15/25 7645) CODE STATUS: Code Status and Medical Interventions: CPR (Attempt to Resuscitate); Full Support Ordered at: 04/14/25 7750 Code Status (Patient has no pulse and is not breathing): CPR (Attempt to Resuscitate) Medical Interventions (Patient has pulse or is breathing): Full Support Level Of Support Discussed With: Patient Edin Rosen MD 04/16/25 * Adriana Hill, Floor Covering Installer - 04/15/2025 5:38 PM EDT Karis Corrales, [facility] 04/15/2025 10:27 Pharmacy to Dose Heparin Infusion Note Kallie Maria is a 59 y.o. female receiving heparin infusion. Therapy for (VTE/Cardiac): Cardiac Patient Weight: 82.6 kg Initial Bolus (Y/N): Yes Any Bolus (Y/N): Yes Signs or Symptoms of Bleeding: n/a Cardiac or Other (Not VTE) Initial Bolus: 60 units/kg (Max 4,000 units) Initial rate: 12 units/kg/hr (Max 1,000 units/hr) Anti-Xa Bolus Dose Infusion Hold Time Infusion Rate Change (units/kg/hr) Repeat Anti-Xa < 0.11 50 units/kg (4000 units Max) None Increase by 3 units/kg/hr 6 hours 0.11- 0.19 25 units/kg (2000 units Max) None Increase by 2 units/kg/hr 6 hours 0.2 - 0.29 0 None Increase by 1 units/kg/hr 6 hours 0.3 - 0.5 0 None No Change 6 hours (after 2 consecutive levels in range check qAM) 0.51 - 0.6 0 None Decrease by 1 units/kg/hr 6 hours 0.61 - 0.8 0 30 minutes Decrease by 2 units/kg/hr 6 hours 0.81 - 1 0 60 minutes Decrease by 3 units/kg/hr 6 hours >1 0 Hold After Anti-Xa less than 0.5 decrease previous rate by 4 units/kg/hr Every 2 hours until Anti-Xa less than 0.5 then when infusion restarts in 6 hours Results from last 7 days Lab Units 04/15/25 0117 04/14/25 1824 04/14/25 1303 INR -- 0.97 -- HEMOGLOBIN g/dL 14.0 -- 14.6 HEMATOCRIT % 41.8 -- 43.2 PLATELETS 10*3/mm3 222 -- 225 Date Time Anti-Xa Current Rate (units/kg/hr) Bolus (units) Rate Change (units/kg/hr) New Rate (units/kg/hr) Repeat Anti-Xa Comments / Pump Check 04/14 1830 STAT NEW 4000 +12 12 0100 DW RN; patient counseled, bolus and pump setup verified 04/14 117 0.6 12 -- -1 11 0800 D/w RN 04/15 0820 0.47 11 -- -- 11 1500 D/w RN 04/15 1546 0.48 11 -- -- 11 0600 D/w RN Delilah Hill, Floor Covering Installer 04/15/25 17:20 EDT Cosigned by Gonzalez Kuhn, PharmD at 04/15/2025 8:22 PM EDT Associated attestation - Gonzalez Kuhn PharmD - 04/15/2025 8:22 PM EDT I have reviewed this documentation and agree. * Karis Corrales, [facility] - 04/15/2025 10:25 AM EDT Pharmacy to Dose Heparin Infusion Note Kallie Maria is a 59 y.o. female receiving heparin infusion. Therapy for (VTE/Cardiac): Cardiac Patient Weight: 82.6 kg Initial Bolus (Y/N): Yes Any Bolus (Y/N): Yes Signs or Symptoms of Bleeding: n/a Cardiac or Other (Not VTE) Initial Bolus: 60 units/kg (Max 4,000 units) Initial rate: 12 units/kg/hr (Max 1,000 units/hr) Anti-Xa Bolus Dose Infusion Hold Time Infusion Rate Change (units/kg/hr) Repeat Anti-Xa < 0.11 50 units/kg (4000 units Max) None Increase by 3 units/kg/hr 6 hours 0.11- 0.19 25 units/kg (2000 units Max) None Increase by 2 units/kg/hr 6 hours 0.2 - 0.29 0 None Increase by 1 units/kg/hr 6 hours 0.3 - 0.5 0 None No Change 6 hours (after 2 consecutive levels in range check qAM) 0.51 - 0.6 0 None Decrease by 1 units/kg/hr 6 hours 0.61 - 0.8 0 30 minutes Decrease by 2 units/kg/hr 6 hours 0.81 - 1 0 60 minutes Decrease by 3 units/kg/hr 6 hours >1 0 Hold After Anti-Xa less than 0.5 decrease previous rate by 4 units/kg/hr Every 2 hours until Anti-Xa less than 0.5 then when infusion restarts in 6 hours Results from last 7 days Lab Units 04/15/25 0117 04/14/25 1824 04/14/25 1303 INR -- 0.97 -- HEMOGLOBIN g/dL 14.0 -- 14.6 HEMATOCRIT % 41.8 -- 43.2 PLATELETS 10*3/mm3 222 -- 225 Date Time Anti-Xa Current Rate (units/kg/hr) Bolus (units) Rate Change (units/kg/hr) New Rate (units/kg/hr) Repeat Anti-Xa Comments / Pump Check 04/14 1830 STAT NEW 4000 +12 12 0100 DW RN; patient counseled, bolus and pump setup verified 04/14 117 0.6 12 -- -1 11 0800 D/w RN 04/15 08 0.47 11 -- -- 0.47 1500 D/w RN Karis Corrales RPH 04/15/2025 10:26 EDT * Edin Rosen MD - 04/15/2025 6:35 AM EDT Images from the original note were not included. [facility] Medicine Services PROGRESS NOTE Patient Name: Kallie Maria : 1965 Date of Admission: 04/14/2025 Primary Care Physician: Nita Chanel DO Subjective Subjective CC: Follow-up chest pain HPI: No acute events overnight, patient rested well, denies any more ongoing chest pain Objective Objective Vital Signs: Temp: [97.8 ??F (36.6 ??C)-98.4 ??F (36.9 ??C)] 97.8 ??F (36.6 ??C) Heart Rate: [61-83] 62 Resp: [18] 18 BP: (115-141)/(65-83) 115/65 Flow (L/min) (Oxygen Therapy): [2-3] 3 Physical Exam: Constitutional: No acute distress, awake, alert HENT: NCAT, mucous membranes moist Respiratory: Clear to auscultation bilaterally, respiratory effort normal Cardiovascular: RRR, no murmurs, rubs, or gallops Gastrointestinal: Positive bowel sounds, soft, nontender, nondistended Musculoskeletal: No bilateral ankle edema Psychiatric: Appropriate affect, cooperative Neurologic: Oriented x 3, nonfocal Skin: No rashes Results Reviewed: LAB RESULTS: Lab 04/15/25 0117 04/14/254 04/14/25 1434 04/14/25 1303 WBC 8.00 -- -- 6.19 HEMOGLOBIN 14.0 -- -- 14.6 HEMATOCRIT 41.8 -- -- 43.2 PLATELETS 222 -- -- 225 NEUTROS ABS 3.91 -- -- 3.30 IMMATURE GRANS (ABS) 0.03 -- -- 0.01 LYMPHS ABS 3.10 -- -- 2.20 MONOS ABS 0.73 -- -- 0.45 EOS ABS 0.16 -- -- 0.17 MCV 87.1 -- -- 86.2 PROTIME -- 13.5 -- -- APTT -- 26.5* -- -- HSTROP T -- -- 49* 14* Lab 04/15/2511604/14/25 1303 SODIUM 139 139 POTASSIUM 3.9 4.1 CHLORIDE 102 102 CO2 28.5 25.9 ANION GAP 8.5 11.1 BUN 12.4 10.4 CREATININE 0.72 0.71 EGFR 97.7 99.3 GLUCOSE 89 98 CALCIUM 9.0 9.1 MAGNESIUM 2.0 -- HEMOGLOBIN A1C 5.23 -- TSH 1.500 -- Lab 04/15/2511604/14/25 1303 TOTAL PROTEIN 6.5 6.9 ALBUMIN 3.9 4.2 GLOBULIN 2.6 2.7 ALT (SGPT) 18 21 AST (SGOT) 27 25 BILIRUBIN 0.7 0.8 ALK PHOS 80 89 LIPASE -- 21 Lab 04/14/25182304/14/25 1434 04/14/25 1303 PROBNP -- -- 138.0 HSTROP T -- 49* 14* PROTIME 13.5 -- -- INR 0.97 -- -- Lab 04/15/25 011 CHOLESTEROL 229* LDL CHOL 150* HDL CHOL 68* TRIGLYCERIDES 65 Brief Urine Lab Results (Last result in the past 365 days) Color Clarity Blood Leuk Est Nitrite Protein CREAT Urine HCG 09/14/24 1147 Yellow Clear Negative Negative Negative Negative Microbiology Results Abnormal None CT Angiogram Chest Pulmonary Embolism Result Date: 04/14/2025 CT ANGIOGRAM CHEST PULMONARY EMBOLISM Date of Exam: 04/14/2025 3:55 PM EDT Indication: Pulmonary Embolism. Comparison: None available. Technique: Axial CT images were obtained of the chest after the uneventful intravenous administration of 85 mL Isovue-370 utilizing pulmonary embolism protocol. In ad dition, a 3-D volume rendered image was created for interpretation. Reconstructed coronal and sagittal images were also obtained. Automated exposure control and iterative construction methods were used. Findings: Diagnostic quality: Contrast opacification of the pulmonary arterial circulation is fide quate for assessment of pulmonary embolism. Study is not significantly limited by respiratory motion artifact. Pulmonary arteries: No evidence of pulmonary embolus. Normal main pulmonary artery diameter. Heart and pericardium:No flattening of the interventricular septum. Coronary stent seen. No substantial pericardial effusion. Vessels:Normal caliber aorta. No atherosclerotic calcification. No evidence of acute aortic injury. Venous structures including the superior vena cava and inferior vena cava appear grossly patent. Mediastinum:Unremarkable appearance of the esophagus. No enlarged or suspicious mediastinal or hilar lymphadenopathy. No anterior mediastinal masses. Small hiatal hernia. Lower neck:No suspicious or enlarged supraclavicular or axillary lymphadenopathy. Normal appearance of the thyroid. Pulmonary parenchyma:No evidence of pulmonary infarct. No suspicious pulmonary nodules. Pleura:No evidence of pleural effusion or pneumothorax. Airways:Central and segmental airways areclear. Chest wall and bones:No acute osseous abnormality. No substantial degenerative changes of thoracic spine. Unremarkable appearance of soft tissues. Upper abdomen:No lesion seen within the visualized liver. Cholecystectomy clips. Impression: Impression: No evidence of pulmonary embolus. Electronically Signed: Gurwinder Kimball MD 04/14/2025 4:56 PM EDT Workstation ID: [id number] XR Chest 1 View Result Date: 04/14/2025 XR CHEST 1 VW Date of Exam: 04/14/2025 12:50 PM EDT Indication: Chest Pain Triage Protocol Comparison: Chest radiograph 05/06/2022. Findings: Cardiomediastinal silhouette is within normal limits. No focal consolidation. No pleural effusion or pneumothorax. Osseous structures are unremarkable. Impression: Impression: No acute cardiopulmonary findings. Electronically Signed: Ignacio Fiore MD 04/14/2025 1:43 PM EDT Workstation ID: [id number] Results for orders placed during the hospital encounter of 08/15/20 Adult Transthoracic Echo Complete W/ Cont if Necessary Per Protocol 08/16/2020 7:08 AM Interpretation Summary ?? Estimated left ventricular EF = 58% Left ventricular ejection fraction appears to be 56 - 60%. Left ventricular systolic function is normal. ?? Estimated right ventricular systolic pressure from tricuspid regurgitation is mildly elevated (35-45 mmHg). Calculated right ventricular systolic pressure from tricuspid regurgitation is 37 mmHg. ?? Mild anterior/apical hypokinesis ?? Mild MR Current medications: Scheduled Meds:aspirin, 81 mg, Oral, Daily budesonide-formoterol, 2 puff, Inhalation, BID - RT sodium chloride, 10 mL, Intravenous, Q12H Continuous Infusions:heparin, 11 Units/kg/hr, Last Rate: 11 Units/kg/hr (04/15/25 0243) Pharmacy to Dose Heparin, PRN Meds:. acetaminophen OR acetaminophen OR acetaminophen albuterol sulfate HFA senna-docusate sodium AND polyethylene glycol AND bisacodyl AND bisacodyl Calcium Replacement - Follow Nurse / BPA Driven Protocol Magnesium Standard Dose Replacement - Follow Nurse / BPA Driven Protocol ondansetron ODT OR ondansetron Pharmacy to Dose Heparin Phosphorus Replacement - Follow Nurse / BPA Driven Protocol Potassium Replacement - Follow Nurse / BPA Driven Protocol sodium chloride sodium chloride sodium chloride Assessment & Plan Assessment & Plan Active Hospital Problems Diagnosis POA Chest pain [R07.9] Yes NSTEMI (non-ST elevated myocardial infarction) [I21.4] Yes Resolved Hospital Problems No resolved problems to display. Brief Hospital Course to date: Kallie Maria is a 59 y.o. female with past medical history significant for CAD, AMI, DVT, HTN, and HLD who presents to the ED via EMS due to worsening substernal chest pain. Patient reports she was working in her yard and had came inside to cool off when she began having substernal chest pain. She is admitted with NSTEMI NSTEMI History of CAD s/p stent Hyperlipidemia - Patient presenting with substernal chest pain, resolved with nitro - Troponin elevated, EKG reviewed showed NSR - Continue aspirin, statin, hep gtt - Cardiology consulted, awaiting their evaluation this morning Hypertension - BP currently normotensive, not on any meds History of DVT All problems listed above are new to me today Expected Discharge Location and Transportation: TBD Expected Discharge Expected Discharge Date: 2025; Expected Discharge Time: VTE Prophylaxis: Pharmacologic VTE prophylaxis orders are present. AM-PAC 6 Clicks Score (PT): 24 (04/14/252030) CODE STATUS: Code Status and Medical Interventions: CPR (Attempt to Resuscitate); Full Support Ordered at: 04/14/251758 Code Status (Patient has no pulse and is not breathing): CPR (Attempt to Resuscitate) Medical Interventions (Patient has pulse or is breathing): Full Support Level Of Support Discussed With: Patient Edin Rosen MD 04/15/25 * Bruce Bell, PharmD - 04/14/2025 6:37 PM EDT Pharmacy to Dose Heparin Infusion Note Kallie Maria is a 59 y.o. female receiving heparin infusion. Therapy for (VTE/Cardiac): Cardiac Patient Weight: 82.6 kg Initial Bolus (Y/N): Yes Any Bolus (Y/N): Yes Signs or Symptoms of Bleeding: n/a Cardiac or Other (Not VTE) Initial Bolus: 60 units/kg (Max 4,000 units) Initial rate: 12 units/kg/hr (Max 1,000 units/hr) Anti-Xa Bolus Dose Infusion Hold Time Infusion Rate Change (units/kg/hr) Repeat Anti-Xa < 0.11 50 units/kg (4000 units Max) None Increase by 3 units/kg/hr 6 hours 0.11- 0.19 25 units/kg (2000 units Max) None Increase by 2 units/kg/hr 6 hours 0.2 - 0.29 0 None Increase by 1 units/kg/hr 6 hours 0.3 - 0.5 0 None No Change 6 hours (after 2 consecutive levels in range check qAM) 0.51 - 0.6 0 None Decrease by 1 units/kg/hr 6 hours 0.61 - 0.8 0 30 minutes Decrease by 2 units/kg/hr 6 hours 0.81 - 1 0 60 minutes Decrease by 3 units/kg/hr 6 hours >1 0 Hold After Anti-Xa less than 0.5 decrease previous rate by 4 units/kg/hr Every 2 hours until Anti-Xa less than 0.5 then when infusion restarts in 6 hours Results from last 7 days Lab Units 04/14/25 1303 HEMOGLOBIN g/dL 14.6 HEMATOCRIT % 43.2 PLATELETS 10*3/mm3 225 Date Time Anti-Xa Current Rate (units/kg/hr) Bolus (units) Rate Change (units/kg/hr) New Rate (units/kg/hr) Repeat Anti-Xa Comments / Pump Check 04/14 183 STAT NEW 4000 +12 12 0100 DW RN; patient counseled, bolus and pump setup verified Bruce Bell PharmD 04/14/2025 17:10 EDT documented in this encounter H&P Notes * Collin Persaud APRN - 04/14/2025 5:47 PM EDT Images from the original note were not included. [facility] Medicine Services HISTORY AND PHYSICAL Patient Name: Kallie Maria : 1965 Primary Care Physician: Nita Chanel DO Date of admission: 04/14/2025 Subjective Subjective Chief Complaint: Chest pain HPI: Kallie Maria is a 59 y.o. female with past medical history significant for CAD, AMI, DVT, HTN, and HLD who presents to the ED via EMS due to worsening substernal chest pain. Patient reports she was working in her yard and had came inside to cool off when she began having substernal chest pain. The pain persisted for about 2 hours. She took ASA 325 mg prior to EMS arrival. She received 1 sublingual nitroglycerin en route to the hospital with resolution of her chest pain. She denies radiationof the pain but does report noticing new left shoulder pain this morning. She denies any recent shortness of breath, fever, chills, cough, nausea, vomiting, or diarrhea. In the ED, CTA of the chest revealed no evidence of pulmonary embolus. Chest x- ray revealed no acute cardiopulmonary findings. Labs were reviewed and significant for troponin of 14 with reflex increasing to 49. Vital signs were reviewed and are currently unremarkable. EKG revealed sinus arrhythmia.SPO2 was 96% on room air at time of assessment. The patient will be admitted by hospital medicine for further evaluation and treatment. Personal History Past Medical History: Diagnosis Date Anesthesia complication PT HAD REACTION WITH KETAMINE; SEVERE VERTIGO, N/V Blood clot in vein RIGHT FOREARM AFTER CARDIAC CATH 11/2021. Bradycardia Coronary artery disease History of palpitations Myocardial infarction 07/2020 Vasovagal syncope Past Surgical History: Procedure Laterality Date ANKLE SURGERY CARDIAC CATHETERIZATION N/A 08/15/2020 Procedure: LEFT HEART CATH; Surgeon: Moiz Beaver MD; Location: [facility]; Service: Cardiovascular; Laterality: N/A; CARDIAC CATHETERIZATION 11/2021 NO INTERVENTION CORONARY STENT PLACEMENT 07/2020 X1 GALLBLADDER SURGERY HERNIA REPAIR ORIF ULNA/RADIUS FRACTURES Left 05/12/2022 Procedure: INTRA ARTICULAR DISTAL RADIUS OPEN REDUCTION INTERNAL FIXATION LEFT; Surgeon: Devante Matthews Jr., MD; Location: [facility] OR; Service: Orthopedics; Laterality: Left; SKIN CANCER EXCISION on stomach Family History: family history includes Diabetes in her brother and brother; Heart attack in her father and mother; Heart attack (age of onset: 52) in her maternal grandmother; Heart attack (age of onset: 60) in her maternal grandfather; Heart disease in her brother and brother; Hypertension in herfather and mother; No Known Problems in her paternal grandfather and paternal grandmother; Stroke (age of onset: 50) in her brother. Social History: reports that she has never smoked. She has never used smokeless tobacco. Drug use questions deferred to the physician. She reports that she does not drink alcohol. Social History Social History Narrative Caffeine: 2-3 servings per day Patient lives at her home, her son lives with her. Medications: Fluticasone Furoate-Vilanterol, albuterol sulfate HFA, aspirin, ezetimibe, levocetirizine, multivitamin with minerals, and nitroglycerin Allergies Allergen Reactions Propofol Shortness Of Breath Avelox [Moxifloxacin] Hallucinations Ketamine And Related Nausea And Vomiting and Delirium Codeine GI Intolerance Objective Objective Vital Signs: Temp: [98.4 ??F (36.9 ??C)] 98.4 ??F (36.9 ??C) Heart Rate: [61-72] 70 Resp: [18] 18 BP: (116-139)/(76-81) 139/80 Flow (L/min) (Oxygen Therapy): [2-3] 3 Physical Exam Constitutional: Awake, alert, pleasant Eyes: PERRLA, sclerae anicteric, no conjunctival injection HENT: NCAT, mucous membranes moist Neck: Supple, no thyromegaly, no lymphadenopathy, trachea midline Respiratory: Clear to auscultation bilaterally, nonlabored respirations, SpO2 96%on RA Cardiovascular: RRR, no murmurs, rubs, or gallops, palpable pedal pulses bilaterally Gastrointestinal: Positive bowel sounds, soft, nontender, nondistended Musculoskeletal: No bilateral ankle edema, no clubbing or cyanosis to extremities Psychiatric: Appropriate affect, cooperative Neurologic: Oriented x 3, moves all extremities, Cranial Nerves grossly intact to confrontation, speech clear Skin: warm, dry, no rashes Result Review: I have personally reviewed the results from the time of this admission to 04/14/2025 18:07 EDT and agree with these findings: [x] Laboratory list / accordion [x] Microbiology [x] Radiology [x] EKG/Telemetry [] Cardiology/Vascular [] Pathology [x] Old records [] Other: Most notable findings include: LAB RESULTS: Lab 04/14/25 1303 WBC 6.19 HEMOGLOBIN 14.6 HEMATOCRIT 43.2 PLATELETS 225 NEUTROS ABS 3.30 IMMATURE GRANS (ABS) 0.01 LYMPHS ABS 2.20 MONOS ABS 0.45 EOS ABS 0.17 MCV 86.2 Lab 04/14/25 1303 SODIUM 139 POTASSIUM 4.1 CHLORIDE 102 CO2 25.9 ANION GAP 11.1 BUN 10.4 CREATININE 0.71 EGFR 99.3 GLUCOSE 98 CALCIUM 9.1 Lab 04/14/25 1303 TOTAL PROTEIN 6.9 ALBUMIN 4.2 GLOBULIN 2.7 ALT (SGPT) 21 AST (SGOT) 25 BILIRUBIN 0.8 ALK PHOS 89 LIPASE 21 Lab 04/14/25 1434 04/14/25 1303 PROBNP -- 138.0 HSTROP T 49* 14* Brief Urine Lab Results (Last result in the past 365 days) Color Clarity Blood Leuk Est Nitrite Protein CREAT Urine HCG 09/14/24 1147 Yellow Clear Negative Negative Negative Negative Microbiology Results (last 10 days) No results found for the last [address] Angiogram Chest Pulmonary Embolism Result Date: 04/14/2025 CT ANGIOGRAM CHEST PULMONARY EMBOLISM Date of Exam: 04/14/2025 3:55 PM EDT Indication: Pulmonary Embolism. Comparison: None available. Technique: Axial CT images were obtained of the chest after the uneventful intravenous administration of 85 mL Isovue-370 utilizing pulmonary embolism protocol. In ad dition, a 3-D volume rendered image was created for interpretation. Reconstructed coronal and sagittal images were also obtained. Automated exposure control and iterative construction methods were used. Findings: Diagnostic quality: Contrast opacification of the pulmonary arterial circulation is fide quate for assessment of pulmonary embolism. Study is not significantly limited by respiratory motion artifact. Pulmonary arteries: No evidence of pulmonary embolus. Normal main pulmonary artery diameter. Heart and pericardium:No flattening of the interventricular septum. Coronary stent seen. No substantial pericardial effusion. Vessels:Normal caliber aorta. No atherosclerotic calcification. No evidence of acute aortic injury. Venous structures including the superior vena cava and inferior vena cava appear grossly patent. Mediastinum:Unremarkable appearance of the esophagus. No enlarged or suspicious mediastinal or hilar lymphadenopathy. No anterior mediastinal masses. Small hiatal hernia. Lower neck:No suspicious or enlarged supraclavicular or axillary lymphadenopathy. Normal appearance of the thyroid. Pulmonary parenchyma:No evidence of pulmonary infarct. No suspicious pulmonary nodules. Pleura:No evidence of pleural effusion or pneumothorax. Airways:Central and segmental airways areclear. Chest wall and bones:No acute osseous abnormality. No substantial degenerative changes of thoracic spine. Unremarkable appearance of soft tissues. Upper abdomen:No lesion seen within the visualized liver. Cholecystectomy clips. Impression: Impression: No evidence of pulmonary embolus. Electronically Signed: Gurwinder Kimball MD 04/14/2025 4:56 PM EDT Workstation ID: [id number] XR Chest 1 View Result Date: 04/14/2025 XR CHEST 1 VW Date of Exam: 04/14/2025 12:50 PM EDT Indication: Chest Pain Triage Protocol Comparison: Chest radiograph 05/06/2022. Findings: Cardiomediastinal silhouette is within normal limits. No focal consolidation. No pleural effusion or pneumothorax. Osseous structures are unremarkable. Impression: Impression: No acute cardiopulmonary findings. Electronically Signed: Ignacio Fiore MD 04/14/2025 1:43 PM EDT Workstation ID: [id number] Results for orders placed during the hospital encounter of 08/15/20 Adult Transthoracic Echo Complete W/ Cont if Necessary Per Protocol 08/16/2020 7:08 AM Interpretation Summary ?? Estimated left ventricular EF = 58% Left ventricular ejection fraction appears to be 56 - 60%. Left ventricular systolic function is normal. ?? Estimated right ventricular systolic pressure from tricuspid regurgitation is mildly elevated (35-45 mmHg). Calculated right ventricular systolic pressure from tricuspid regurgitation is 37 mmHg. ?? Mild anterior/apical hypokinesis ?? Mild MR Assessment & Plan Assessment & Plan Chest pain Kallie Maria is a 59 y.o. female with past medical history significant for CAD, AMI, DVT, HTN, and HLD who presents to the ED via EMS due to worsening substernal chest pain. Chest pain Elevated troponin Hx CAD s/p stent -Previously followed by Dr. Beaver, last cath 2020 -CTA negative for PE -Initial trop 14, reflex 49 -EKG revealed sinus arrhythmia -continue ASA -Started on Heparin infusion -Cardiology consult in AM -AM labs DVT prophylaxis: Heparin infusion CODE STATUS: Code Status (Patient has no pulse and is not breathing): CPR (Attempt to Resuscitate) Medical Interventions (Patient has pulse or is breathing): Full Support Level Of Support Discussed With: Patient Expected Discharge TBD Expected discharge date/ time has not been documented. Signature: Electronically signed by Collin Persaud APRN, 04/14/25, 6:00 PM EDT Cosigned by Annel Jlues MD at 04/14/2025 6:53 PM EDT Associated attestation - Annel Jules MD - 04/14/2025 6:53 PM EDT I have reviewed this documentation and agree. documented in this encounter Consult Notes * Nakia Josue RN - 04/16/2025 3:06 PM EDTAssociated Order(s): IP CONSULT TO BOTTOM WHEELER Diabetes Education Patient Name: Kallie Maria Date of : 1965 Admit Date: 04/14/2025 Consult received for diabetes education per post cardiac catheterization protocol. A1c is 5.23%. Nohistory of diabetes per H&P. Please reconsult as needed. Electronically signed by: Nakia Josue RN 04/16/25 15:07 EDT * Navneet Barnes III, MD - 04/15/2025 9:56 AM EDTAssociated Order(s): IP CONSULT TO CARDIOLOGY [facility] CARDIOLOGY CONSULTATION NOTE Kallie Maria : 1965 Date of Admission:04/14/2025 Date of Consultation: 04/15/25 PCP: Nita Chanel DO IDENTIFICATION: A 59 y.o. female resident of [place], [place] Chief Complaint Patient presents with Chest Pain PROBLEM LIST: Chest pain NSTEMI (non-ST elevated myocardial infarction) ALLERGIES: Allergies Allergen Reactions Propofol Shortness Of Breath Avelox [Moxifloxacin] Hallucinations Ketamine And Related Nausea And Vomiting and Delirium Codeine GI Intolerance HOME MEDICINES: Current Outpatient Medications Medication Instructions albuterol sulfate HFA 108 (90 Base) MCG/ACT inhaler 2 puffs, Every 6 Hours PRN aspirin 81 mg, Oral, Daily, OTC ezetimibe (ZETIA) 10 mg, Daily levocetirizine (XYZAL) 5 mg, Every Evening Multiple Vitamins-Minerals (MULTIVITAMIN ADULT PO) 1 tablet, Oral, Daily, OTC nitroglycerin (NITROSTAT) 0.4 MG SL tablet 1 under the tongue as needed for angina, may repeat q5mins for up three doses HPI: Mrs. Maria is a 59 y/o female with CAD with previous BERNARD to LAD, HTN, HLD, who is seen in consultation for NSTEMI. She was working outside yesterday for 30 minutes, was asymptomatic with activity, but when she got in the house, she developed midsternal chest heaviness, lasted about an hour. She called EMS and received SL Nitro with resolution of symptoms, transported to our hospital. HS troponins 14-49, EKGs with no acute ischemic changes. She has been started on heparin gtt and cardiologyis asked to see. Denies recurrent chest pain since admission. ROS: All systems have been reviewed and are negative with the exception of those mentioned in the HPI and problem list above. Surgical History: Past Surgical History: Procedure Laterality Date ANKLE SURGERY CARDIAC CATHETERIZATION N/A 08/15/2020 Procedure: LEFT HEART CATH; Surgeon: Moiz Beaver MD; Location: [facility] CATH [facility]ASIVE LOCATION; Service: Cardiovascular; Laterality: N/A; CARDIAC CATHETERIZATION 11/2021 NO INTERVENTION CORONARY STENT PLACEMENT 07/2020 X1 GALLBLADDER SURGERY HERNIA REPAIR ORIF ULNA/RADIUS FRACTURES Left 05/12/2022 Procedure: INTRA ARTICULAR DISTAL RADIUS OPEN REDUCTION INTERNAL FIXATION LEFT; Surgeon: Devante Matthews Jr., MD; Location: [facility] OR; Service: Orthopedics; Laterality: Left; SKIN CANCER EXCISION on stomach Social History: Social History Socioeconomic History Marital status: Tobacco Use Smoking status: Never Smokeless tobacco: Never Vaping Use Vaping status: Never Used Substance and Sexual Activity Alcohol use: No Drug use: Defer Sexual activity: Defer Family History: Family History Problem Relation Age of Onset Heart attack Mother Hypertension Mother Heart attack Father Hypertension Father Heart disease Brother CABG Diabetes Brother Heart attack Maternal Grandmother 52 Heart attack Maternal Grandfather 60 No Known Problems Paternal Grandmother No Known Problems Paternal Grandfather Diabetes Brother Heart disease Brother CABG Stroke Brother 50 Breast cancer Neg Hx Ovarian cancer Neg Hx Objective BP 115/65 (BP Location: Left arm, Patient Position: Lying) Pulse 62 Temp 97.8 ??F (36.6 ??C) (Oral) Resp 18 Ht 162.6 cm (64 ) Wt 82.6 kg (182 lb) LMP 05/15/2020 (Approximate) SpO2 93% BMI 31.24 kg/m?? Intake/Output Summary (Last 24 hours) at 04/15/2025 0914 Last data filed at 04/15/2025 0607 Gross per 24 hour Intake -- Output 400 ml Net -400 ml PHYSICAL EXAM: CONSTITUTIONAL: Well nourished, cooperative, in no acute distress HEENT: Normocephalic, atraumatic, PERRLA, no JVD CARDIOVASCULAR: Regular rhythm and normal rate, no murmur, gallop, rub. RESPIRATORY: Clear to auscultation, normal respiratory effort, no wheezing, rales or rhonchi EXTREMITIES: No gross deformities, no edema. SKIN: Warm, dry. No bleeding, bruising or rash NEUROLOGICAL: No focal deficits Labs/Diagnostic Data Results from last 7 days Lab Units 04/15/25 0117 04/14/25 1303 SODIUM mmol/L 139 139 POTASSIUM mmol/L 3.9 4.1 CHLORIDE mmol/L 102 102 CO2 mmol/L 28.5 25.9 BUN mg/dL 12.4 10.4 CREATININE mg/dL 0.72 0.71 GLUCOSE mg/dL 89 98 CALCIUM mg/dL 9.0 9.1 Results from last 7 days Lab Units 04/14/25 1434 04/14/25 1303 HSTROP T ng/L 49* 14* Results from last 7 days Lab Units 04/15/25 0117 04/14/25 1303 WBC 10*3/mm3 8.00 6.19 HEMOGLOBIN g/dL 14.0 14.6 HEMATOCRIT % 41.8 43.2 PLATELETS 10*3/mm3 222 225 Results from last 7 days Lab Units 04/15/25 0117 MAGNESIUM mg/dL 2.0 Results from last 7 days Lab Units 04/15/25 0117 CHOLESTEROL mg/dL 229* TRIGLYCERIDES mg/dL 65 HDL CHOL mg/dL 68* LDL CHOL mg/dL 150* Results from last 7 days Lab Units 04/15/25 0117 TSH uIU/mL 1.500 Results from last 7 days Lab Units 04/15/25 0117 HEMOGLOBIN A1C % 5.23 Results from last 7 days Lab Units 04/14/25 1303 PROBNP pg/mL 138.0 Results from last 7 days Lab Units 04/14/25 1824 PROTIME Seconds 13.5 INR 0.97 APTT seconds 26.5* I personally reviewed the patient's EKG/Telemetry data Radiology Data: CT Angiogram Chest Pulmonary Embolism Result Date: 04/14/2025 Impression: No evidence of pulmonary embolus. Electronically Signed: Gurwinder Kimball MD :56 PM EDT Workstation ID: [id number] XR Chest 1 View Result Date: 04/14/2025 Impression: No acute cardiopulmonary findings. Electronically Signed: Ignacio Fiore MD 04/14/2025 1:43 PM EDT Workstation ID: [id number] Current Medications: aspirin, 81 mg, Oral, Daily budesonide-formoterol, 2 puff, Inhalation, BID - RT pharmacy consult - MTM, , Not Applicable, Daily sodium chloride, 10 mL, Intravenous, Q12H heparin, 11 Units/kg/hr, Last Rate: 11 Units/kg/hr (04/15/25 0243) Pharmacy to Dose Heparin, Assessment and Plan: 1. CAD with NSTEMI - previous LAD stent in 2019 for anterior SD - HS troponins 14--49, EKGs with no acute ischemic changes - continue ASA, Heparin gtt - plan for cath in AM. NPO after midnight - check echo today - unable to tolerate BB at this time due to relative bradycardia and episodes of hypotension at home 2. Hyperlipidemia, untreated - previously on Crestor but intolerant - LDL 150, will start high dose Atorvastatin, if unable to tolerate, recommend PCSK-9 inhibitor at discharge Scribed for Navneet Barnes MD by Jacy Retana PA-C. 04/15/2025 10:22 EDT documented in this encounter Nursing Notes * Chad Jay RN - 04/16/2025 6:32 PM EDT Problem: Adult Inpatient Plan of Care Goal: Plan of Care Review Outcome: Adequate for Care Transition Goal: Patient-Specific Goal (Individualized) Outcome: Adequate for Care Transition Goal: Absence of Hospital-Acquired Illness or Injury Outcome: Adequate for Care Transition Intervention: Identify and Manage Fall Risk Recent Flowsheet Documentation Taken 04/16/2025 1800 by Chad Jay, RN Safety Promotion/Fall Prevention: activity supervised assistive device/personal items within reach clutter free environment maintained fall prevention program maintained lighting adjusted nonskid shoes/slippers when out of bed safety round/check completed Taken 04/16/2025 1648 by Jay, Nikul, RN Safety Promotion/Fall Prevention: assistive device/personal items within reach clutter free environment maintained fall prevention program maintained nonskid shoes/slippers when out of bed safety round/check completed Taken 04/16/2025 1420 by Chad Jay RN Safety Promotion/Fall Prevention: patient off unit Taken 04/16/2025 1200 by Chad Jay RN Safety Promotion/Fall Prevention: assistive device/personal items within reach clutter free environment maintained lighting adjusted nonskid shoes/slippers when out of bed safety round/check completed Taken 04/16/2025 1000 by Chad Jay RN Safety Promotion/Fall Prevention: assistive device/personal items within reach clutter free environment maintained fall prevention program maintained nonskid shoes/slippers when out of bed safety round/check completed Taken 04/16/2025 0820 by Chad Jay RN Safety Promotion/Fall Prevention: assistive device/personal items within reach fall prevention program maintained nonskid shoes/slippers when out of bed safety round/check completed Intervention: Prevent Skin Injury Recent Flowsheet Documentation Taken 04/16/2025 1800 by Chad Jay RN Body Position: position changed independently Skin Protection: incontinence pads utilized transparent dressing maintained Taken 04/16/2025 1648 by Chad Jay RN Body Position: position changed independently Skin Protection: incontinence pads utilized transparent dressing maintained Taken 04/16/2025 1200 by Chad Jay RN Body Position: position changed independently Skin Protection: incontinence pads utilized transparent dressing maintained Taken 04/16/2025 1000 by Chad Jay RN Body Position: position changed independently Skin Protection: incontinence pads utilized transparent dressing maintained Taken 04/16/2025 0820 by Chad Jay RN Body Position: position changed independently Skin Protection: incontinence pads utilized transparent dressing maintained Intervention: Prevent Infection Recent Flowsheet Documentation Taken 04/16/2025 1800 by Chad Jay RN Infection Prevention: environmental surveillance performed rest/sleep promoted single patient room provided Taken 04/16/2025 1648 by Chad Jay RN Infection Prevention: environmental surveillance performed rest/sleep promoted single patient room provided Taken 04/16/2025 1200 by Chad Jay RN Infection Prevention: environmental surveillance performed rest/sleep promoted single patient room provided Taken 04/16/2025 1000 by Chad Jay RN Infection Prevention: environmental surveillance performed rest/sleep promoted single patient room provided Taken 04/16/2025 0820 by Chad Jay RN Infection Prevention: environmental surveillance performed rest/sleep promoted single patient room provided Goal: Optimal Comfort and Wellbeing Outcome: Adequate for Care Transition Intervention: Provide Person-Centered Care Recent Flowsheet Documentation Taken 04/16/2025 1800 by Chad Jay RN Trust Relationship/Rapport: care explained choices provided questions answered questions encouraged Taken 04/16/2025 1648 by Chad Jay RN Trust Relationship/Rapport: care explained choices provided questions answered questions encouraged Taken 04/16/2025 1200 by Chad Jay RN Trust Relationship/Rapport: care explained choices provided questions answered questions encouraged Taken 04/16/2025 1000 by Chad Jay RN Trust Relationship/Rapport: care explained choices provided questions answered questions encouraged Taken 04/16/2025 0820 by Chad Jay RN Trust Relationship/Rapport: choices provided care explained questions answered questions encouraged Goal: Readiness for Transition of Care Outcome: Adequate for Care Transition Goal Outcome Evaluation: * Chad Jay RN - 04/16/2025 6:25 PM EDT AVS printed and reviewed with pt. Discharge education provided. Pt verbalizes understanding. Deniesany questions. PIV removed. Tele monitor off. Pt dressed in home clothes. Belongings packed and returned. Pt discharged home with family. * Evonne Echevarria RN - 04/15/2025 4:02 AM EDT Goal Outcome Evaluation: Plan of Care Reviewed With: patient Progress: no change Outcome Evaluation: VSS. A&O x 4. Up ad andres. NSR, room air. Heparin gtt @11, next 10A drawn @0800. No acute overnight events. NPO for cards consult in am. Continue with POC. documented in this encounter ED Notes * Ivania Pak, RN - 04/14/2025 6:25 PM EDT Kallie Maria Nursing Report ED to Floor: Mental status: A&Ox4 Ambulatory status: Independent Oxygen Therapy: 3 LPM NC Cardiac Rhythm: NSR Admitted from: Home/ED Safety Concerns: None Precautions: None Social Issues: None ED Room #: 15 ED Nurse Phone Extension - [phone] or may call [phone]. HPI: Chief Complaint Patient presents with Chest Pain Past Medical History: Past Medical History: Diagnosis Date Anesthesia complication PT HAD REACTION WITH KETAMINE; SEVERE VERTIGO, N/V Blood clot in vein RIGHT FOREARM AFTER CARDIAC CATH 11/2021. Bradycardia Coronary artery disease History of palpitations Myocardial infarction 07/2020 Vasovagal syncope Past Surgical History: Past Surgical History: Procedure Laterality Date ANKLE SURGERY CARDIAC CATHETERIZATION N/A 08/15/2020 Procedure: LEFT HEART CATH; Surgeon: Moiz Beaver MD; Location: [facility] CATH INVASIVE LOCATION; Service: Cardiovascular; Laterality: N/A; CARDIAC CATHETERIZATION 11/2021 NO INTERVENTION CORONARY STENT PLACEMENT 07/2020 X1 GALLBLADDER SURGERY HERNIA REPAIR ORIF ULNA/RADIUS FRACTURES Left 05/12/2022 Procedure: INTRA ARTICULAR DISTAL RADIUS OPEN REDUCTION INTERNAL FIXATION LEFT; Surgeon: Devante Matthews Jr., MD; Location: [facility] OR; Service: Orthopedics; Laterality: Left; SKIN CANCER EXCISION on stomach Admitting Doctor: Annel Jules MD Consulting Provider(s): Consults No orders found from 03/16/2025 to 04/15/2025. Admitting Diagnosis: The primary encounter diagnosis was NSTEMI (non-ST elevated myocardial infarction). Diagnoses of Chest pain, unspecified type and Elevated troponin were also pertinent to this visit. Most Recent Vitals: Vitals: 04/14/25 1334 04/14/25 1400 04/14/25 1433 04/14/25 1458 BP: 116/80 126/81 132/76 139/80 BP Location: Patient Position: Pulse: 67 61 67 70 Resp: Temp: TempSrc: SpO2: 92% 92% 92% 91% Weight: Height: Active LDAs/IV Access: Lines, Drains & Airways Active LDAs Name Placement date Placement time Site Days Peripheral IV 04/14/25 1246 18 G Left Antecubital 04/14/25 1246 Antecubital less than 1 Labs (abnormal labs have a star): Labs Reviewed TROPONIN - Abnormal; Notable for the following components: Result Value HS Troponin T 14 (*) All other components within normal limits Narrative: High Sensitive Troponin T Reference Range: <14.0 ng/L- Negative Female for AMI <22.0 ng/L- Negative Male for AMI >=14 - Abnormal Female indicating possible myocardial injury. >=22 - Abnormal Male indicating possible myocardial injury. Clinicians would have to utilize clinical acumen, EKG, Troponin, and serial changes to determine ifit is an Acute Myocardial Infarction or myocardial injury due to an underlying chronic condition. CBC WITH AUTO DIFFERENTIAL - Abnormal; Notable for the following components: RDW 11.7 (*) RDW-SD 36.7 (*) All other components within normal limits HIGH SENSITIVITIY TROPONIN T 1HR - Abnormal; Notable for the following components: HS Troponin T 49 (*) Troponin T Numeric Delta 35 (*) Troponin T % Delta 250 (*) All other components within normal limits Narrative: High Sensitive Troponin T Reference Range: <14.0 ng/L- Negative Female for AMI <22.0 ng/L- Negative Male for AMI >=14 - Abnormal Female indicating possible myocardial injury. >=22 - Abnormal Male indicating possible myocardial injury. Clinicians would have to utilize clinical acumen, EKG, Troponin, and serial changes to determine ifit is an Acute Myocardial Infarction or myocardial injury due to an underlying chronic condition. LIPASE - Normal BNP (IN-HOUSE) - Normal Narrative: This assay is used as an aid in the diagnosis of individuals suspected of having heart failure. It can be used as an aid in the diagnosis of acute decompensated heart failure (ADHF) in patients presenting with signs and symptoms of ADHF to the emergency department (ED). In addition, NT-proBNP of <300 pg/mL indicates ADHF is not likely. Age Range Result Interpretation NT-proBNP Concentration (pg/mL: <50 Positive >450 Stubbs 300-450 Negative <300 50-75 Positive >900 Stubbs 300-900 Negative <300 >75 Positive >1800 Stubbs 300-1800 Negative <300 RAINBOW DRAW Narrative: The following orders were created for panel order [place] Draw. Procedure Abnormality Status --------- ------ Green Top (Gel)[[id number]] Final result Lavender Top[[id number]] Final result Gold Top - SST[[id number]] Final result Stubbs Top[[id number]] Final result Light Blue Top[[id number]] Final result Please view results for these tests on the individual orders. COMPREHENSIVE METABOLIC PANEL Narrative: GFR Categories in Chronic Kidney Disease (CKD) GFR Category GFR (mL/min/1.73) Interpretation G1 90 or greater Normal or high (1) G2 60-89 Mild decrease (1) G3a 45-59 Mild to moderate decrease G3b 30-44 Moderate to severe decrease G4 15-29 Severe decrease G5 14 or less Kidney failure (1)In the absence of evidence of kidney disease, neither GFR category G1 or G2 fulfill the criteriafor CKD. eGFR calculation 2020 CKD-EPI creatinine equation, which does not include race as a factor HEPARIN ANTI XA PROTIME-INR APTT CBC AND DIFFERENTIAL Narrative: The following orders were created for panel order CBC & Differential. Procedure Abnormality Status --------- ------ CBC Auto Differential[[id number]] Abnormal Final result Please view results for these tests on the individual orders. GREEN TOP LAVENDER TOP GOLD TOP - SST STUBBS TOP LIGHT BLUE TOP Meds Given in ED: Medications sodium chloride 0.9 % flush 10 mL (has no administration in time range) aspirin chewable tablet 324 mg (324 mg Oral Not Given 04/14/25 1247) heparin (porcine) injection 4,000 Units (has no administration in time range) heparin 20627 units/250 mL (100 units/mL) in 0.45 % NaCl infusion (has no administration in time range) Pharmacy to Dose Heparin (has no administration in time range) iopamidol (ISOVUE-370) 76 % injection 100 mL (85 mL Intravenous Given 04/14/25 1608) heparin, 12 Units/kg/hr Pharmacy to Dose Heparin, Last NIH score: Dysphagia screening results: Patient Factors Component (Dysphagia:Stroke or Rule-out) Best Eye Response: 4-->(E4) spontaneous (04/14/25 1255) Best Motor Response: 6-->(M6) obeys commands (04/14/25 1255) Best Verbal Response: 5-->(V5) oriented (04/14/25 1255) Dg Coma Scale Score: 15 (04/14/25 1255) [place] Coma Scale: No data recorded CIWA: Restraint Type: Isolation Status: No active isolations * Tommie Miarnda DO - 04/14/2025 12:52 PM EDT Images from the original note were not included. [facility] ENCOUNTER Pt Name: Kallie Maria Birthdate: 1965 Date of evaluation: 04/14/2025 Provider: Tommie Miranda DO CHIEF COMPLAINT Chief Complaint Patient presents with Chest Pain HPI Stated Reason for Visit: PT COMES INTO THE ED VIA [facility] FROM HOME FOR THE C/O CHEST PAIN WITH NO RADIATION OF PAIN STARTING TWO HOURS AGO AFTER YARD WORK. PT GIVEN 1 NITRO DIRECTOR NURSES' REGISTRY. EMS STATES PT SELF ADMINISTERED 324MG OF ASA PRIOR TO THEIR ARRIVAL. HX OF SD.History Obtained From: EMS HISTORY OF PRESENT ILLNESS (Location/Symptom, Timing/Onset, Context/Setting, Quality, Duration, Modifying Factors, Severity.) Kallie Maria is a 59 y.o. female who presents to the emergency department via EMS for evaluation of retrosternal chest pain and pressure which started shortly after finishing some light yard workthis morning. Patient took a full dose aspirin, has had some waxing waning symptoms over the last hour or 2. She did receive nitro x 1 in Routes with continued relief. The patient states her chest pain has resolved early prior to arrival. She has had a prior cardiology assessment. Has also had a cardiac catheterization, she has had a cardiac stent placed in the past patient been compliant with her medications, she denies any recent travel, no swelling, shortness of breath, nausea or vomiting. She denies any other acute systemic complaints at this time. Follows with the cardiology team with ALICE Jerez, has had some intermittent palpitations, Holter monitor, cardiac workup over the last few weeks, no significant abnormalities have come from this assessment today. Nursing notes were reviewed. PAST MEDICAL HISTORY Past Medical History: Diagnosis Date Anesthesia complication PT HAD REACTION WITH KETAMINE; SEVERE VERTIGO, N/V Blood clot in vein RIGHT FOREARM AFTER CARDIAC CATH 11/2021. Bradycardia Coronary artery disease History of palpitations Myocardial infarction 07/2020 Vasovagal syncope SURGICAL HISTORY Past Surgical History: Procedure Laterality Date ANKLE SURGERY CARDIAC CATHETERIZATION N/A 08/15/2020 Procedure: LEFT HEART CATH; Surgeon: Moiz Beaver MD; Location: [facility]; Service: Cardiovascular; Laterality: N/A; CARDIAC CATHETERIZATION 11/2021 NO INTERVENTION CORONARY STENT PLACEMENT 07/2020 X1 GALLBLADDER SURGERY HERNIA REPAIR ORIF ULNA/RADIUS FRACTURES Left 05/12/2022 Procedure: INTRA ARTICULAR DISTAL RADIUS OPEN REDUCTION INTERNAL FIXATION LEFT; Surgeon: Devante Matthews Jr., MD; Location: [facility] OR; Service: Orthopedics; Laterality: Left; SKIN CANCER EXCISION on stomach CURRENT MEDICATIONS Current Facility-Administered Medications: aspirin chewable tablet 324 mg, 324 mg, Oral, Once, Tommie Miranda DO heparin (porcine) injection 4,000 Units, 4,000 Units, Intravenous, Once, Tommie Miranda DO heparin 25437 units/250 mL (100 units/mL) in 0.45 % NaCl infusion, 12 Units/kg/hr, Intravenous, Titrated, Tommie Miranda DO Pharmacy to Dose Heparin, , Not Applicable, Continuous PRN, Tommie Miranda DO sodium chloride 0.9 % flush 10 mL, 10 mL, Intravenous, PRN, Tommie Miranda, Current Outpatient Medications: albuterol sulfate HFA 108 (90 Base) MCG/ACT inhaler, Inhale 2 puffs Every 6 (Six) Hours As Needed for Wheezing or Shortness of Air., Disp: , Rfl: aspirin 81 MG chewable tablet, Chew 1 tablet Daily. OTC, Disp: , Rfl: levocetirizine (XYZAL) 5 MG tablet, Take 1 tablet by mouth Every Evening. OTC, Disp: , Rfl: Multiple Vitamins-Minerals (MULTIVITAMIN ADULT PO), Take 1 tablet by mouth Daily. OTC, Disp: , Rfl: ezetimibe (ZETIA) 10 MG tablet, Take 1 tablet by mouth Daily., Disp: , Rfl: Fluticasone Furoate-Vilanterol 100-25 MCG/ACT aerosol powder , Inhale 1 puff Daily., Disp: , Rfl: nitroglycerin (NITROSTAT) 0.4 MG SL tablet, 1 under the tongue as needed for angina, may repeat q5mins for up three doses (Patient taking differently: Place 1 tablet under the tongue Every 5 (Five) Minutes As Needed for Chest Pain. ), Disp: 100 tablet, Rfl: 11 ALLERGIES Propofol, Avelox [moxifloxacin], Ketamine and related, and Codeine FAMILY HISTORY Family History Problem Relation Age of Onset Heart attack Mother Hypertension Mother Heart attack Father Hypertension Father Heart disease Brother CABG Diabetes Brother Heart attack Maternal Grandmother 52 Heart attack Maternal Grandfather 60 No Known Problems Paternal Grandmother No Known Problems Paternal Grandfather Diabetes Brother Heart disease Brother CABG Stroke Brother 50 Breast cancer Neg Hx Ovarian cancer Neg Hx SOCIAL HISTORY Social History Socioeconomic History Marital status: Tobacco Use Smoking status: Never Smokeless tobacco: Never Vaping Use Vaping status: Never Used Substance and Sexual Activity Alcohol use: No Drug use: Defer Sexual activity: Defer PHYSICAL EXAM Vitals: 04/14/25 1334 04/14/25 1400 04/14/25 1433 04/14/25 1458 BP: 116/80 126/81 132/76 139/80 BP Location: Patient Position: Pulse: 67 61 67 70 Resp: Temp: TempSrc: SpO2: 92% 92% 92% 91% Weight: Height: Physical Exam General : Patient is awake, alert, oriented, in no acute distress, nontoxic appearing HEENT: Pupils are equally round, EOMI, conjunctivae clear Neck: Neck is supple, full range of motion, trachea midline Cardiac: Heart regular rate, rhythm, no murmurs, rubs, or gallops Lungs: Lungs are clear to auscultation, there is no wheezing, rhonchi, or rales. There is no use ofaccessory muscles Chest wall: There is no tenderness to palpation over the chest wall or over ribs Abdomen: Abdomen is soft, nontender, nondistended. There are no firm or pulsatile masses, no rebound rigidity or guarding Musculoskeletal: No peripheral edema, 5 out of 5 strength in all 4 extremities. No focal muscle deficits are appreciated Dermatology: Skin is warm and dry Psych: Mentation is grossly normal, cognition is grossly normal. Affect is appropriate DIAGNOSTIC RESULTS EKG: All EKGs are interpreted by the Emergency Department Physician who either signs or Co-signs this chart in the absence of a emt dispatcher. ECG 12 Lead Chest Pain Final Result Test Reason : Chest Pain Blood Pressure : */* mmHG Vent. Rate : 62 BPM Atrial Rate : 62 BPM P-R Int : 140 ms QRS Dur : 78 ms QT Int : 406 ms P-R-T Axes : 49 0 62 degrees QTcB Int : 412 ms Normal sinus rhythm with sinus arrhythmia Normal ECG When compared with ECG of 14-Apr-2025 12:54, No significant change was found Confirmed by TOMMIE MIRANDA MD ([id number]) on 04/14/2025 2:54:50 PM Referred By: ZANDRA Confirmed By: TOMMIE MIRANDA MD ECG 12 Lead Chest Pain Final Result Test Reason : Chest Pain Blood Pressure : */* mmHG Vent. Rate : 69 BPM Atrial Rate : 69 BPM P-R Int : 134 ms QRS Dur : 74 ms QT Int : 398 ms P-R-T Axes : 59 10 60 degrees QTcB Int : 426 ms Normal sinus rhythm with sinus arrhythmia Normal ECG When compared with ECG of 06-May-2022 15:49, No significant change was found Confirmed by TOMMIE MIRANDA MD ([id number]) on 04/14/2025 12:56:47 PM Referred By: ZANDRA Confirmed By: TOMMIE MIRANDA MD Telemetry Scan Final Result RADIOLOGY: [x] Radiologist's Report Reviewed: CT Angiogram Chest Pulmonary Embolism Final Result Impression: No evidence of pulmonary embolus. Electronically Signed: Gurwinder Kimball MD 04/14/2025 4:56 PM EDT Workstation ID: [id number] XR Chest 1 View Final Result Impression: No acute cardiopulmonary findings. Electronically Signed: Ignacio Fiore MD 04/14/2025 1:43 PM EDT Workstation ID: [id number] I ordered and independently reviewed the above noted radiographic studies. I viewed images of chest x-ray which showed no acute cardiopulmonary process per my independent interpretation. See radiologist's dictation for official interpretation. LABS: I have reviewed and interpreted all of the currently available lab results from this visit (if applicable): Results for orders placed or performed during the hospital encounter of 04/14/25 ECG 12 Lead Chest Pain Collection Time: 04/14/25 12:54 PM Result Value Ref Range QT Interval 398 ms QTC Interval 426 ms High Sensitivity Troponin T Collection Time: 04/14/25 1:03 PM Specimen: Blood Result Value Ref Range HS Troponin T 14 (H) <14 ng/L Comprehensive Metabolic Panel Collection Time: 04/14/25 1:03 PM Specimen: Blood Result Value Ref Range Glucose 98 65 - 99 mg/dL BUN 10.4 6.0 - 20.0 mg/dL Creatinine 0.71 0.57 - 1.00 mg/dL Sodium 139 136 - 145 mmol/L Potassium 4.1 3.5 - 5.2 mmol/L Chloride 102 98 - 107 mmol/L CO2 25.9 22.0 - 29.0 mmol/L Calcium 9.1 8.6 - 10.5 mg/dL Total Protein 6.9 6.0 - 8.5 g/dL Albumin 4.2 3.5 - 5.2 g/dL ALT (SGPT) 21 1 - 33 U/L AST (SGOT) 25 1 - 32 U/L Alkaline Phosphatase 89 39 - 117 U/L Total Bilirubin 0.8 0.0 - 1.2 mg/dL Globulin 2.7 gm/dL A/G Ratio 1.6 g/dL BUN/Creatinine Ratio 14.6 7.0 - 25.0 Anion Gap 11.1 5.0 - 15.0 mmol/L eGFR 99.3 >60.0 mL/min/1.73 Lipase Collection Time: 04/14/25 1:03 PM Specimen: Blood Result Value Ref Range Lipase 21 13 - 60 U/L BNP Collection Time: 04/14/25 1:03 PM Specimen: Blood Result Value Ref Range proBNP 138.0 0.0 - 900.0 pg/mL CBC Auto Differential Collection Time: 04/14/25 1:03 PM Specimen: Blood Result Value Ref Range WBC 6.19 3.40 - 10.80 10*3/mm3 RBC 5.01 3.77 - 5.28 10*6/mm3 Hemoglobin 14.6 12.0 - 15.9 g/dL Hematocrit 43.2 34.0 - 46.6 % MCV 86.2 79.0 - 97.0 fL MCH 29.1 26.6 - 33.0 pg MCHC 33.8 31.5 - 35.7 g/dL RDW 11.7 (L) 12.3 - 15.4 % RDW-SD 36.7 (L) 37.0 - 54.0 fl MPV 9.3 6.0 - 12.0 fL Platelets 225 140 - 450 10*3/mm3 Neutrophil % 53.3 42.7 - 76.0 % Lymphocyte % 35.5 19.6 - 45.3 % Monocyte % 7.3 5.0 - 12.0 % Eosinophil % 2.7 0.3 - 6.2 % Basophil % 1.0 0.0 - 1.5 % Immature Grans % 0.2 0.0 - 0.5 % Neutrophils, Absolute 3.30 1.70 - 7.00 10*3/mm3 Lymphocytes, Absolute 2.20 0.70 - 3.10 10*3/mm3 Monocytes, Absolute 0.45 0.10 - 0.90 10*3/mm3 Eosinophils, Absolute 0.17 0.00 - 0.40 10*3/mm3 Basophils, Absolute 0.06 0.00 - 0.20 10*3/mm3 Immature Grans, Absolute 0.01 0.00 - 0.05 10*3/mm3 nRBC 0.0 0.0 - 0.2 /100 WBC Green Top (Gel) Collection Time: 04/14/25 1:03 PM Result Value Ref Range Extra Tube Hold for add-ons. Lavender Top Collection Time: 04/14/25 1:03 PM Result Value Ref Range Extra Tube hold for add-on Gold Top - SST Collection Time: 04/14/25 1:03 PM Result Value Ref Range Extra Tube Hold for add-ons. Stubbs Top Collection Time: 04/14/25 1:03 PM Result Value Ref Range Extra Tube Hold for add-ons. Light Blue Top Collection Time: 04/14/25 1:03 PM Result Value Ref Range Extra Tube Hold for add-ons. ECG 12 Lead Chest Pain Collection Time: 04/14/25 2:28 PM Result Value Ref Range QT Interval 406 ms QTC Interval 412 ms High Sensitivity Troponin T 1Hr Collection Time: 04/14/25 2:34 PM Specimen: Blood Result Value Ref Range HS Troponin T 49 (H) <14 ng/L Troponin T Numeric Delta 35 (C) Abnormal if >/=3 ng/L Troponin T % Delta 250 (C) Abnormal if >/= 20% If labs were ordered, I independently reviewed the results and considered them in treating the patient. EMERGENCY DEPARTMENT COURSE and DIFFERENTIAL DIAGNOSIS/MDM: Vitals: OF 17:20 EDT BP - 139/80 HR - 70 TEMP - 98.4 ??F (36.9 ??C) (Oral) O2 SATS - 91% Orders placed during this visit: Orders Placed This Encounter Procedures XR Chest [address] Angiogram Chest Pulmonary Embolism [place] Draw High Sensitivity Troponin T Comprehensive Metabolic Panel Lipase BNP CBC Auto Differential High Sensitivity Troponin T 1Hr Heparin Anti-Xa Protime-INR aPTT NPO Diet NPO Type: Strict NPO Undress & Gown Continuous Pulse Oximetry Notify Provider Platelet Count Less Than 01972 Stop Infusion & Notify Provider if Bleeding Occurs Oxygen Therapy- Nasal Cannula; Titrate 1-6 LPM Per SpO2; 90 - 95% ECG 12 Lead Chest Pain ECG 12 Lead ED Triage Standing Order; Chest Pain Telemetry Scan Insert Peripheral IV CBC & Differential Green Top (Gel) Lavender Top Gold Top - SST Stubbs Top Light Blue Top CBC & Differential All labs have been independently reviewed by me. All radiology studies have been reviewed by me andthe radiologist dictating the report. All EKG's have been independently viewed and interpreted by me. Discussion below represents my analysis of pertinent findings related to patient's condition, differential diagnosis, treatment plan and final disposition. Differential diagnosis: The differential diagnosis associated with the patient's presentation includes: Coronary disease, angina, vasospasm, pleurisy, pneumonia, MSK strain Additional sources Discussed/ obtained information from independent historians: [] Spouse [] Parent [] Family member [] Friend [x] EMS [] Other: External (non-ED) record review: [x] Inpatient record: Reviewed patient's hospitalization back in July 2020 where she was admitted and diagnosed with acute anterolateral wall SD, catheterization and received a drug-eluting stentto the proximal LAD [] Office record: [] Outpatient record: [] Prior Outpatient labs: [] Prior Outpatient radiology: [] Primary Care record: [] Outside ED record: [] Other: Patient's care impacted by: [] Diabetes [] Hypertension [] CHF [] Hyperlipidemia [x] Coronary Artery Disease [] COPD [] Cancer [] Tobacco Abuse [] Substance Abuse [] Other: Care significantly affected by Social Determinants of Health (housing and economic circumstances, unemployment) [] Yes [x] No If yes, Patient's care significantly limited by Social Determinants of Health including: [] Inadequate housing [] Low income [] Alcoholism and drug addiction in family [] Problems related to primary support group [] Unemployment [] Problems related to employment [] Other Social Determinants of Health: MEDICATIONS ADMINISTERED IN ED: Medications sodium chloride 0.9 % flush 10 mL (has no administration in time range) aspirin chewable tablet 324 mg (324 mg Oral Not Given 04/14/25 1247) heparin (porcine) injection 4,000 Units (has no administration in time range) heparin 29543 units/250 mL (100 units/mL) in 0.45 % NaCl infusion (has no administration in time range) Pharmacy to Dose Heparin (has no administration in time range) iopamidol (ISOVUE-370) 76 % injection 100 mL (85 mL Intravenous Given 04/14/25 1608) ED Course as of 04/14/25 1720 Sat Apr 14, 2025 1720 HEART Pathway for Early Discharge in Acute Chest Pain from [facility] on 04/14/2025 All calculations should be rechecked by clinician prior to use RESULT SUMMARY: 5 points HEART Pathway Score High risk 12-65% 30-day MACE Cardiology consultation and admission recommended. Further testing indicated. INPUTS: History -> 1 = Moderately suspicious EKG -> 0 = Normal Age -> 1 = 45-64 Risk factors -> 2 = >=3 risk factors or history of atherosclerotic disease Initial troponin -> 1 = 1-3x normal limit [AP] ED Course User Index [AP] Tommie Miranda, DO This a very pleasant 59-year-old female who has had chest pain after working outside with no significant strenuous activity, initially chest pain or pressure nonradiating, resolved after full dose aspirin, nitro. Has a history of LAD stent in 2019. Initial EKG without acute ischemic changes. Blood work labs and imaging obtained with results as above. Patient's labs reveal initial troponin of 14, repeat troponin of 49, normal kidney function, her BNP is stable. The CT PE study of the chest does not reveal any acute pathology, no underlying pulmonary embolism. On reassessment patient's chest pain has improved. Her heart score is 5. We started her on a heparin infusion as a treatment for NSTEMI. Given her history, abnormal troponins with her chest pain we discussed admission to the hospital for further workup treatment cardiology assessment. She is in agreement with this. Case discussed with hospitalist Dr. Jules. PROCEDURES: Procedures CRITICAL CARE TIME Total Critical Care time was 0 minutes, excluding separately reportable procedures. There was a high probability of clinically significant/life threatening deterioration in the patient's condition which required my urgent intervention. FINAL IMPRESSION 1. NSTEMI (non-ST elevated myocardial infarction) 2. Chest pain, unspecified type 3. Elevated troponin DISPOSITION/PLAN ED Disposition ED Disposition Decision to Admit Condition -- Comment -- Comment: Please note this report has been produced using speech recognition software. Tommie Miranda DO Attending Emergency Physician Tommie Miranda DO 04/14/25 1721 documented in this encounter Miscellaneous Notes * Case Management/Social Work - Sarita Shirley RN - 04/16/2025 10:09 AM EDT Discharge Planning Assessment [facility] Patient Name: Kallie Maria Today's Date: 04/16/2025 Admit Date: 04/14/2025 Plan: Home Discharge Needs Assessment Row Name 04/16/25 1003 Living Environment People in Home alone Current Living Arrangements home Potentially Unsafe Housing Conditions none In the past 12 months has the electric, gas, oil, or water company threatened to shut off services in your home? No Primary Care Provided by self Provides Primary Care For no one Family Caregiver if Needed child(jose), adult Family Caregiver Names Alfredo Bullard (son) [phone] Quality of Family Relationships unable to assess Able to Return to Prior Arrangements yes Resource/Environmental Concerns Resource/Environmental Concerns none Transportation Concerns none Transportation Needs In the past 12 months, has lack of transportation kept you from medical appointments or from getting medications? no In the past 12 months, has lack of transportation kept you from meetings, work, or from getting things needed for daily living? No Food Insecurity Within the past 12 months, you worried that your food would run out before you got the money to buymore. Never true Within the past 12 months, the food you bought just didn't last and you didn't have money to get more. Never true Transition Planning Patient/Family Anticipates Transition to home Patient/Family Anticipated Services at Transition nurse case managerplant production manager Anticipated family or friend will provide Discharge Needs Assessment Readmission Within the Last 30 Days no previous admission in last 30 days Equipment Currently Used at Home shower chair;glucometer;bp cuff;pulse ox Concerns to be Addressed discharge planning Do you want help finding or keeping work or a job? I do not need or want help Do you want help with school or training? For example, starting or completing job training or getting a high school diploma, GED or equivalent No Anticipated Changes Related to Illness none Equipment Needed After Discharge bp cuff;glucometer;pulse ox;shower chair Current Discharge Risk lives alone Discharge Coordination/Progress I spoke with Pt, in room, to initiate discharge plan. Pt is admitted with chest pain. She lives alone in a one story home with a basement. There are 13 steps at the entrance of the home. Address on file was verified. Prior to admission, Pt ambulated independently andwas independent with ADLs. She has the following DME: shower chair, glucometer, BP cuff, and pulse o ximeter. Her PCP is Dr Nita Chanel. She has [employer] insurance which has Rx coverage. She uses [employer] She states prescriptions are affordable. She denies HH/O2/OPPT. Her plan is toreturn home at discharge. Family will provide transportation. CM will continue to follow hospital course. Discharge Plan Row Name 04/16/25 1009 Plan Plan Home Final Discharge Disposition Code 01 - home or self-care Continued Care and Services - Admitted Since 04/14/2025 No active coordination exists. Expected Discharge Date and Time Expected Discharge Date Expected Discharge Time Apr 17, 2025 Demographic Summary Row Name 04/16/25 1002 General Information Arrived From home Referral Source emergency department Reason for Consult discharge planning Preferred Language Polish General Information Comments PCP Dr Nita Chanel Contact Information Permission Granted to Share Info With nurse case managerreal estate branch manager Information Obtained for nurse case managerreal estate branch manager Information Comments Alfredo Bullard (son) [phone] or Onel Maria (brother) [phone] Functional Status Row Name 04/16/25 1003 Functional Status Usual Activity Tolerance good Current Activity Tolerance good Functional Status, IADL Medications independent Meal Preparation independent Housekeeping independent Laundry independent Shopping independent Psychosocial No documentation. Abuse/Neglect No documentation. Legal No documentation. Substance Abuse No documentation. Patient Forms No documentation. Sarita Shirley RN documented in this encounter Plan of Treatment Scheduled Referrals Name Type Priority Associated Diagnoses Order Schedule Ambulatory Referral to Cardiac Rehab Outpatient Referral Routine Elevated troponin Ordered: 04/16/2025 documented as of this encounter Procedures Procedure Name Priority Date/Time Associated Diagnosis Comments CARDIAC CATHETERIZATION Routine 04/16/20 2:56 PM EDT HEPARIN ANTI XA Timed 04/16/2025 12:55 PM EDT HEPARIN ANTI XA Routine 04/16/2025 4:06 AM EDT HEPARIN ANTI XA Timed 04/15/2025 3:46 PM EDT ECHO COMPLETE W/ DOPPLER AND COLOR FLOW Routine 04/15/2025 3:03 PM EDT HEPARIN ANTI XA Timed 04/15/2025 8:20 AM EDT HEPARIN ANTI XA Timed 04/15/2025 1:17 AM EDT CBC WITH AUTO DIFFERENTIAL Routine 04/15/2025 1:17 AM EDT CBC AND DIFFERENTIAL Routine 04/15/2025 1:17 AM EDT TSH Routine 04/15/2025 1:17 AM EDT MAGNESIUM Routine 04/15/2025 1:17 AM EDT HEMOGLOBIN A1C Routine 04/15/2025 1:17 AM EDT LIPID PANEL Routine 04/15/2025 1:17 AM EDT COMPREHENSIVE METABOLIC PANEL Routine 04/15/2025 1:17 AM EDT HEPARIN ANTI XA STAT 04/14/2025 6:24 PM EDT APTT STAT 04/14/2025 6:24 PM EDT PROTIME-INR STAT 04/14/2025 6:[address] ANGIOGRAM CHEST PULMONARY EMBOLISM STAT 04/14/2025 4:08 PM EDT HIGH SENSITIVITIY TROPONIN T 1HR STAT 04/14/2025 2:34 PM EDT ECG 12-LEAD STAT 04/14/2025 2:28 PM EDT XR CHEST 1 VW STAT 04/14/2025 1:40 PM EDT STUBBS TOP STAT 04/14/2025 1:03 PM EDT GOLD TOP - SST STAT 04/14/2025 1:03 PM EDT DK GREEN TOP STAT 04/14/2025 1:03 PM EDT CBC WITH AUTO DIFFERENTIAL STAT 04/14/2025 1:03 PM EDT LAVENDER TOP STAT 04/14/2025 1:03 PM EDT LIGHT BLUE TOP STAT 04/14/2025 1:03 PM EDT RAINBOW DRAW STAT 04/14/2025 1:03 PM EDT TROPONIN STAT 04/14/2025 1:03 PM EDT CBC AND DIFFERENTIAL STAT 04/14/2025 1:03 PM EDT B-TYPE NATRIURETIC PEPTIDE STAT 04/14/2025 1:03 PM EDT LIPASE STAT 04/14/2025 1:03 PM EDT COMPREHENSIVE METABOLIC PANEL STAT 04/14/2025 1:03 PM EDT ECG 12-LEAD STAT 04/14/2025 12:54 PM EDT SCANNED - TELEMETRY 04/14/2025 1 2:51 PM EDT documented in this encounter Results * LEFT HEART CATH (04/16/2025 2:56 PM EDT) Anatomical Region Laterality Modality X-Ray Angiograph y Impressions 04/16/2025 3:12 PM EDT No significant coronary artery disease with a patent LAD stent. I suspect that the patient has mild pericarditis. RECOMMENDATIONS: Continue management the patient with known coronary disease and previous stent placement. Indications: Elevated troponin in a patient with atypical chest pain and known coronary disease with a previous stent placement to the LAD. Access: Right radial artery was attempted however even with ultrasound the artery could not be accessed. Right femoral access was obtained. Estimated blood loss: Less than 15 mL Procedures: Left heart catheterization. Selective coronary angiography. Procedure narrative: The patient was brought to the catheterization lab in a fasting condition. Access site was prepped and draped in standard sterile fashion. Lidocaine was injected and arterial access was obtained by percutaneous anterior wall puncture technique. A 6 [place] arterial sheath was placed in the right femoral artery using a modified Seldinger technique. Selective coronary arteriography was performed using the Margarette technique with a 6 [place]er 4 curved Margarette right catheter and a 6 [place] 4 curved Margarette left catheter. Nonionic contrast was used and was injected manually. No left ventriculogram was performed. LV pressures were obtained. Following the procedure the patient's sheath was Tegaderm in place and was pulled in recovery. There were no complications. Contrast: 50 ml Hemodynamic Findings: LV pressure: 150/2/10 mmHg, on pull back no gradient was recorded across the aortic valve. Ao pressure: 150/70 mmHg Left ventriculography: Not performed Angiographic Findings: RCA: The right coronary artery is dominant for the posterior circulation and is a small vessel free of significant disease. LMCA: The left main coronary artery gives rise to the LAD and circumflex vessels and is free of disease. Circumflex: The circumflex coronary gives rise to a tiny first obtuse marginal branch small second obtuse marginal branch a large third obtuse marginal branch and moderate fourth obtuse marginal branch as well as a left atrial branch. The circumflex and its branches contain no disease. LAD: The LAD gives rise to a very large first diagonal branch multiple small diagonals and terminates as a small apical recurrent branch. The LAD has been stented proximally and there is a little bit of narrowing at the distal aspect of the stent but no more than 30%. No other significant disease is seen within the LAD or its branches. Narrative 04/16/2025 3:12 PM EDT FINAL Tracey Cheng MD CV CARDIAC CATH ORDERAB LES Final Result * Heparin Anti-Xa (04/16/2025 12:55 PM EDT) Heparin Anti-Xa (UFH) 0.34 0.30 - 0.70 IU/ml 04/16/2025 3:25 PM EDT [facility] Blood Venipuncture / Unknown 04/16/2025 12:55 PM EDT 04/16/2025 1:54 PM EDT Raudel Castellanos PharmD LAB BLOOD ORDERABLES Fin al Result [facility]
[address] [place] [address], * Heparin Anti-Xa (04/16/2025 4:06 AM EDT) Heparin Anti-Xa (UFH) 0.58 0.30 - 0.70 IU/ml 04/16/2025 5:22 AM EDT [facility] Blood Venipuncture / Unknown 04/16/2025 4:06 AM EDT 04/16/2025 4:54 AM EDT Gonzalez Kuhn PharmD LAB BLOOD ORDERABLES Final Result [facility]
[address] [place] [address], [place] [phone] * Heparin Anti-Xa (04/15/2025 3:46 PM EDT) [facility] Heparin Anti-Xa (UFH) 0.48 0.30 - 0.70 IU/ml 04/15/2025 4:35 PM EDT [facility] Blood Venipuncture / Unknown 04/15/2025 3:46 PM EDT 04/15/2025 4:15 PM EDT Karis Corrales [facility] LAB BLOOD ORDERABLES Final Result [facility]
[address] [place] [address], [place] [phone] * ECHO COMPLETE W/ DOPPLER AND COLOR FLOW (04/15/2025 3:03 PM EDT) [facility] EF(MOD-bp) 53.4 % EF_3D-VOL 58.0 % LVIDd 4.0 cm LVIDs 2.6 cm IVSd 0.90 cm LVPWd 0.90 cm FS 35.0 % IVS/LVPW 1.00 cm ESV(cubed) 17.6 ml LV Sys Vol (BSA corrected) 19.9 cm2 EDV(cubed) 64.0 ml LV Steel Vol (BSA corrected) 42.2 cm2 LV mass(C)d 109.7 grams LVOT area 2.8 cm2 LVOT diam 1.90 cm EDV(MOD-sp2) 76.3 ml EDV(MOD-sp4) 79.3 ml ESV(MOD-sp2) 34.1 ml ESV(MOD-sp4) 37.4 ml SV(MOD-sp2) 42.2 ml SV(MOD-sp4) 41.9 ml SVi(MOD-SP2) 22.5 ml/m2 SVi(MOD-SP4) 22.3 ml/m2 SVi (LVOT) 32.1 ml/m2 EF(MOD-sp2) 55.3 % EF(MOD-sp4) 52.8 % MV E max jimy 66.0 cm/sec MV A max jimy 81.2 cm/sec MV dec time 0.19 sec MV E/A 0.81 IVRT 88.0 ms LA ESV Index (BP) 27.2 ml/m2 Med Peak E' Jimy 9.1 cm/sec Lat Peak E' Jimy 13.7 cm/sec Avg E/e' ratio 5.79 SV(LVOT) 60.4 ml RV Base 3.0 cm RV Mid 2.5 cm RV Length 7.0 cm LA dimension (2D) 3.4 cm LV V1 max 111.0 cm/sec LV V1 max PG 4.9 mmHg LV V1 mean PG 3.0 mmHg LV V1 VTI 21.3 cm AI P1/2t 633.0 msec PA V2 max 120.0 cm/sec PA acc time 0.16 sec PI end-d jimy 87.1 cm/sec Ao root diam 2.7 cm Anatomical Region Laterality Modality Ultrasound Narrative 04/15/2025 3:13 PM EDT Left ventricular systolic function is normal. Calculated left ventricular 3D EF = 58% Left ventricular ejection fraction appears to be 56 - 60%. Left ventricular diastolic function was normal. There is a small (<1cm) pericardial effusion adjacent to the right ventricle. There is no evidence of cardiac tamponade. Left Ventricle Left ventricular systolic function is normal. Calculated left ventricular 3D EF = 58% Left ventricular ejection fraction appears to be 56 - 60%. Normal left ventricular cavity size and wall thickness noted. All left ventricular wall segments contract normally. Left ventricular diastolic function was normal. Right Ventricle Normal right ventricular cavity size, wall thickness and systolic function noted. Left Atrium Normal left atrial size and volume noted. Right Atrium Normal right atrial cavity size noted. The inferior vena cava is normally sized. Normal IVC inspiratory collapse of greater than 50% noted. Mitral Valve The mitral valve is structurally normal with no significant stenosis present. Trace mitral valve regurgitation is present. Tricuspid Valve The tricuspid valve is structurally normal with no significant regurgitation or significant stenosis present. Aortic Valve The aortic valve was poorly visualized but appears trileaflet. Mild aortic valve regurgitation is present. No aortic valve stenosis is present. Pulmonic Valve The pulmonic valve is not well visualized. There is trace pulmonic valve regurgitation present. There is no pulmonic valve stenosis present. Pericardium There is a small (<1cm) pericardial effusion adjacent to the right ventricle. The effusion is fluid filled. There is no evidence of cardiac tamponade. Greater Vessels No dilation of the aortic root is present. No dilation of the ascending aorta is present. The inferior vena cava is normally sized. Normal IVC inspiratory collapse of greater than 50% noted. Study Quality The study is technically adequate for diagnosis. The quality of the study is limited due to patient body habitus. Jacy Retana PA-C CV ECHO ORDERABLES F inal Result * Heparin Anti-Xa (04/15/2025 8:20 AM EDT) Pathologist [facility] Heparin Anti-Xa (UFH) 0.47 0.30 - 0.70 IU/ml 04/15/2025 10:07 AM EDT [facility] Blood Venipuncture / Unknown 04/15/2025 8:20 AM EDT 04/15/2025 9:39 AM EDT Raudel Castellanos PharmD LAB BLOOD ORDERABLES Fin al Result [facility]
[address] [place] [address], * (ABNORMAL) CBC Auto Differential (04/15/2025 1:17 AM EDT) WBC 8.00 3.40 - 10.80 10*3/mm3 04/15/2025 1:45 AM EDT [facility] RBC 4.80 3.77 - 5.28 10*6/mm3 04/15/2025 1:45 AM EDT [facility] Hemoglobin 14.0 12.0 - 15.9 g/dL 04/15/2025 1:45 AM EDT [facility] Hematocrit 41.8 34.0 - 46.6 % 04/15/2025 1:45 AM EDT [facility] MCV 87.1 79.0 - 97.0 fL 04/15/2025 1:45 AM EDT [facility] MCH 29.2 26.6 - 33.0 pg 04/15/2025 1:45 AM EDT [facility] MCHC 33.5 31.5 - 35.7 g/dL 04/15/2025 1:45 AM EDT [facility] RDW 11.7(L) 12.3 - 15.4 % 04/15/2025 1:45 AM EDT [facility] RDW-SD 37.7 37.0 - 54.0 fl 04/15/2025 1:45 [facility] MPV 9.3 6.0 - 12.0 fL 04/15/2025 1:45 AM [facility] Platelets 222 140 - 450 10*3/mm3 04/15/2025 1:45 AM [facility] Neutrophil % 48.8 42.7 - 76.0 % 04/15/2025 1:45 AM [facility] Lymphocyte % 38.8 19.6 - 45.3 % 04/15/2025 1:45 AM [facility] Monocyte % 9.1 5.0 - 12.0 % 04/15/2025 1:45 AM [facility] Eosinophil % 2.0 0.3 - 6.2 % 04/15/2025 1:45 AM [facility] Basophil % 0.9 0.0 - 1.5 % 04/15/2025 1:45 AM EDT [facility] Immature Grans % 0.4 0.0 - 0.5 % 04/15/2025 1:45 AM EDT [facility] Neutrophils, Absolute 3.91 1.70 - 7.00 10*3/mm3 04/15/2025 1:45 AM EDT [facility] Lymphocytes, Absolute 3.10 0.70 - 3.10 10*3/mm3 04/15/2025 1:45 AM EDT [facility] Monocytes, Absolute 0.73 0.10 - 0.90 10*3/mm3 04/15/2025 1:45 AM EDT [facility] Eosinophils, Absolute 0.16 0.00 - 0.40 10*3/mm3 04/15/2025 1:45 AM EDT [facility] Basophils, Absolute 0.07 0.00 - 0.20 10*3/mm3 04/15/2025 1:45 AM EDT [facility] Immature Grans, Absolute 0.03 0.00 - 0.05 10*3/mm3 04/15/2025 1:45 AM EDT [facility] nRBC 0.0 0.0 - 0.2 /100 WBC 04/15/2025 1:45 AM EDT [facility] Blood Venipuncture / Unknown 04/15/2025 1:17 AM EDT 04/15/2025 1:42 AM EDT Collin Persaud [employer] LAB BLOOD ORDERABLES Final R esult Performing Organization Address City/[facility]/ZIP Co de Phone Number [facility]
[address] [place] [address], * Heparin Anti-Xa (04/15/2025 1:17 AM EDT) [facility] Heparin Anti-Xa (UFH) 0.60 0.30 - 0.70 IU/ml 04/15/2025 1:59 AM EDT [facility] Blood Venipuncture / Unknown 04/15/2025 1:17 AM EDT 04/15/2025 1:42 AM EDT Bruce OdonnellD LAB BLOOD ORDERABLES Final Re sult Performing Organization Address City/[facility]/ZIP Co de Phone Number [facility]
[address] [place] [address], * TSH (04/15/2025 1:17 AM EDT) TSH 1.500 0.270 - 4.200 uIU/mL 04/15/2025 2:06 AM EDT [facility] Blood Venipuncture / Unknown 04/15/2025 1:17 AM EDT 04/15/2025 1:30 AM EDT Collin Torresh [employer] LAB BLOOD ORDERABLES Final R esult Performing Organization Address City/[facility]/ZIP Co de Phone Number [facility]
[address] [place] [address], * Magnesium (04/15/2025 1:17 AM EDT) Pathologist [facility] Magnesium 2.0 1.6 - 2.6 mg/dL 04/15/2025 2:06 AM EDT [facility] Blood Venipuncture / Unknown 04/15/2025 1:17 AM EDT 04/15/2025 1:30 AM EDT Collin Kramer Hung [employer] LAB BLOOD ORDERABLES Final R esult Performing Organization Address City/[facility] Co de Phone Number [facility]
[address] [place] [address], * (ABNORMAL) Lipid Panel (04/15/2025 1:17 AM EDT) Total Cholesterol 229(H) 0 - 200 mg/dL 04/15/2025 2:06 AM EDT [facility] Triglycerides 65 0 - 150 mg/dL 04/15/2025 2:06 AM EDT [facility] HDL Cholesterol 68(H) 40 - 60 mg/dL 04/15/2025 2:06 AM EDT [facility] LDL Cholesterol 150(H) 0 - 100 mg/dL 04/15/2025 2:06 AM EDT [facility] VLDL Cholesterol 11 5 - 40 mg/dL 04/15/2025 2:06 AM [facility] LDL/HDL Ratio 2.18 04/15/2025 2:06 AM EDT [facility] Blood Venipuncture / Unknown 04/15/2025 1:17 AM EDT 04/15/2025 1:30 AM EDT [facility] - 04/15/2025 2:06 AM EDT Cholesterol Reference Ranges (U.S. Department of Health and Human Services ATP III Classifications) Desirable <200 mg/dL Borderline High 200-239 mg/dL High Risk >240 mg/dL Triglyceride Reference Ranges (U.S. Department of Health and Human Services ATP III Classifications) Normal <150 mg/dL Borderline High 150-199 mg/dL High 200-499 mg/dL Very High >500 mg/dL HDL Reference Ranges (U.S. Department of Health and Human Services ATP III Classifications) Low <40 mg/dl (major risk factor for CHD) High >60 mg/dl ('negative' risk factor for CHD) LDL Reference Ranges (U.S. Department of Health and Human Services ATP III Classifications) Optimal <100 mg/dL Near Optimal 100-129 mg/dL Borderline High 130-159 mg/dL High 160-189 mg/dL Very High >189 mg/dL LDL is calculated using the NIH LDL-C calculation. Collin Persaud APRN LAB BLOOD ORDERABLES Final R esult [facility]
[address] [place] [address], * Hemoglobin A1c (04/15/2025 1:17 AM EDT) Hemoglobin A1C 5.23 4.80 - 5.60 % 04/15/2025 1:56 AM EDT [facility] Blood Venipuncture / Unknown 04/15/2025 1:17 AM EDT 04/15/2025 1:30 AM EDT [facility] - 04/15/2025 1:56 AM EDT Hemoglobin A1C Ranges: Increased Risk for Diabetes 5.7% to 6.4% Diabetes >= 6.5% Diabetic Goal < 7.0% Collin Williams Persaud [employer] LAB BLOOD ORDERABLES Final R esult [facility]
[address] [place] [address], * Comprehensive Metabolic Panel (04/15/2025 1:17 AM EDT) [facility] Glucose 89 65 - 99 mg/dL 04/15/2025 2:06 AM EDT [facility] BUN 12.4 6.0 - 20.0 mg/dL 04/15/2025 2:06 AM EDT [facility] Creatinine 0.72 0.57 - 1.00 mg/dL 04/15/2025 2:06 AM EDT [facility] Sodium 139 136 - 145 mmol/L 04/15/2025 2:06 AM EDT [facility] Potassium 3.9 3.5 - 5.2 mmol/L 04/15/2025 2:06 AM EDT [facility] Chloride 102 98 - 107 mmol/L 04/15/2025 2:06 AM EDT [facility] CO2 28.5 22.0 - 29.0 mmol/L 04/15/2025 2:06 AM EDT [facility] Calcium 9.0 8.6 - 10.5 mg/dL 04/15/2025 2:06 AM EDT [facility] Total Protein 6.5 6.0 - 8.5 g/dL 04/15/2025 2:06 AM EDT [facility] Albumin 3.9 3.5 - 5.2 g/dL 04/15/2025 2:06 AM EDT [facility] ALT (SGPT) 18 1 - 33 U/L 04/15/2025 2:06 AM EDT [facility] AST (SGOT) 27 1 - 32 U/L 04/15/2025 2:06 AM EDT [facility] Alkaline Phosphatase 80 39 - 117 U/L 04/15/2025 2:06 AM EDT [facility] Total Bilirubin 0.7 0.0 - 1.2 mg/dL 04/15/2025 2:06 AM EDT [facility] Globulin 2.6 gm/dL 04/15/2025 2:06 AM EDT [facility] Comment:Calculated Result A/G Ratio 1.5 g/dL 04/15/2025 2:06 AM EDT [facility] BUN/Creatinine Ratio 17.2 7.0 - 25.0 04/15/2025 2:06 AM EDT [facility] Anion Gap 8.5 5.0 - 15.0 mmol/L 04/15/2025 2:06 AM EDT [facility] eGFR 97.7 >60.0 mL/min/1.7 3 04/15/2025 2:06 AM EDT [facility] Blood Venipuncture / Unknown 04/15/2025 1:17 AM EDT 04/15/2025 1:30 AM EDT [facility] - 04/15/2025 2:06 AM EDT GFR Categories in Chronic Kidney Disease (CKD) GFR Category GFR (mL/min/1.73) Interpretation G1 90 or greater Normal or high (1) G2 60-89 Mild decrease (1) G3a 45-59 Mild to moderate decrease G3b 30-44 Moderate to severe decrease G4 15-29 Severe decrease G5 14 or less Kidney failure (1)In the absence of evidence of kidney disease, neither GFR category G1 or G2 fulfill the criteria for CKD. eGFR calculation 2020 CKD-EPI creatinine equation, which does not include race as a factor us Collin Persaud [employer] LAB BLOOD ORDERABLES Final R esult [facility]
[address] [place] [address], * (ABNORMAL) aPTT (04/14/2025 6:24 PM EDT) PTT 26.5(L) 60.0 - 90.0 seconds 04/14/2025 7:01 PM EDT [facility] Blood Venipuncture / Unknown 04/14/2025 6:24 PM EDT 04/14/2025 6:40 PM EDT Narrative [facility] - 04/14/2025 7:01 PM EDT PTT = The equivalent PTT values for the therapeutic range of heparin levels at 0.3 to 0.5 U/ml are 60 to 70 seconds. Tommie Lopez [facility] BLOOD ORDERABLES Fin al Result Performing Organization Address [facility] Co de Phone Number [facility]
[address] [place] [address], * Protime-INR (04/14/2025 6:24 PM EDT) Pathologist [facility] Protime 13.5 12.2 - 15.3 Seconds 04/14/2025 7:01 PM EDT [facility] INR 0.97 0.89 - 1.12 04/14/2025 7:01 PM EDT [facility] Blood Venipuncture / Unknown 04/14/2025 6:24 PM EDT 04/14/2025 6:40 PM EDT Tommie Lopez [facility] LAB BLOOD ORDERABLES Fin al Result [facility]
[address] [place] [address], * (ABNORMAL) Heparin Anti-Xa (04/14/2025 6:24 PM EDT) Pathologist [facility] Heparin Anti-Xa (UFH) 0.10(L) 0.30 - 0.70 IU/ml 04/14/2025 7:02 PM EDT [facility] Blood Venipuncture / Unknown 04/14/2025 6:24 PM EDT 04/14/2025 6:40 PM EDT us Tommie Miranda DO LAB BLOOD ORDERABLES Fin al Result [facility]
[address] [id number], * CT Angiogram Chest Pulmonary Embolism (04/14/2025 4:08 PM EDT) Anatomical Region Laterality Modality Chest N/A Computed Tomogra phy 04/14/2025 4:46 PM EDT Impressions 04/14/2025 4:56 PM EDT Impression: No evidence of pulmonary embolus. Electronically Signed: Gurwinder Kimball MD 04/14/2025 4:56 PM EDT Workstation ID: [id number] Narrative 04/14/2025 4:[address] ANGIOGRAM CHEST PULMONARY EMBOLISM Date of Exam: 04/14/2025 3:55 PM EDT Indication: Pulmonary Embolism. Comparison: None available. Technique: Axial CT images were obtained of the chest after the uneventful intravenous administration of 85 mL Isovue-370 utilizing pulmonary embolism protocol. In addition, a 3-D volume rendered image was created for interpretation. Reconstructed coronal and sagittal images were also obtained. Automated exposure control and iterative construction methods were used. Findings: Diagnostic quality: Contrast opacification of the pulmonary arterial circulation is adequate for assessment of pulmonary embolism. Study is not significantly limited by respiratory motion artifact. Pulmonary arteries: No evidence of pulmonary embolus. Normal main pulmonary artery diameter. Heart and pericardium:No flattening of the interventricular septum. Coronary stent seen. No substantial pericardial effusion. Vessels:Normal caliber aorta. No atherosclerotic calcification. No evidence of acute aortic injury. Venous structures including the superior vena cava and inferior vena cava appear grossly patent. Mediastinum:Unremarkable appearance of the esophagus. No enlarged or suspicious mediastinal or hilar lymphadenopathy. No anterior mediastinal masses. Small hiatal hernia. Lower neck:No suspicious or enlarged supraclavicular or axillary lymphadenopathy. Normal appearance of the thyroid. Pulmonary parenchyma:No evidence of pulmonary infarct. No suspicious pulmonary nodules. Pleura:No evidence of pleural effusion or pneumothorax. Airways:Central and segmental airways are clear. Chest wall and bones:No acute osseous abnormality. No substantial degenerative changes of thoracic spine. Unremarkable appearance of soft tissues. Upper abdomen:No lesion seen within the visualized liver. Cholecystectomy clips. Procedure Note Gurwinder Kimball MD - 04/14/2025 CT ANGIOGRAM CHEST PULMONARY EMBOLISM Date of Exam: 04/14/2025 3:55 PM EDT Indication: Pulmonary Embolism. Comparison: None available. Technique: Axial CT images were obtained of the chest after the uneventfulintravenous administration of 85 mL Isovue-370 utilizing pulmonaryembolism protocol. In addition, a 3-D volume rendered image was createdfor interpretation. Reconstructed coronal and sagittal images were also obtained. Automated exposure controland iterative construction methods were used. Findings: Diagnostic quality: Contrast opacification of the pulmonary arterialcirculation is adequate for assessment of pulmonary embolism. Study is notsignificantly limited by respiratory motion artifact. Pulmonary arteries: No evidence of pulmonary embolus. Normal mainpulmonary artery diameter. Heart and pericardium:No flattening of the interventricular septum.Coronary stent seen. No substantial pericardial effusion. Vessels:Normal caliber aorta. No atherosclerotic calcification. Noevidence of acute aortic injury. Venous structures including the superiorvena cava and inferior vena cava appear grossly patent. Mediastinum:Unremarkable appearance of the esophagus. No enlarged orsuspicious mediastinal or hilar lymphadenopathy. No anterior mediastinalmasses. Small hiatal hernia. Lower neck:No suspicious or enlarged supraclavicular or axillarylymphadenopathy. Normal appearance of the thyroid. Pulmonary parenchyma:No evidence of pulmonary infarct. No suspiciouspulmonary nodules. Pleura:No evidence of pleural effusion or pneumothorax. Airways:Central and segmental airways are clear. Chest wall and bones:No acute osseous abnormality. No substantialdegenerative changes of thoracic spine. Unremarkable appearance of softtissues. Upper abdomen:No lesion seen within the visualized liver. Cholecystectomyclips. IMPRESSION: Impression: No evidence of pulmonary embolus. Electronically Signed: Gurwinder Kimball MD 04/14/2025 4:56 PM EDT Workstation ID: [id number] Tommie Miranda DO IMG CT ORDERABLES Final Result * (ABNORMAL) High Sensitivity Troponin T 1Hr (04/14/2025 2:34 PM EDT) HS Troponin T 49(H) <14 ng/L 04/14/2025 3:29 PM EDT [facility] Troponin T Numeric Delta 35(HH) Abnormal if >/=3 ng/L 04/14/2025 3:29 PM EDT [facility] Troponin T % Delta 250(HH) Abnormal if >/= 20% 04/14/2025 3:29 PM EDT [facility] Blood Venipuncture / Unknown 04/14/2025 2:34 PM EDT 04/14/2025 2:49 PM EDT [facility] - 04/14/2025 3:29 PM EDT High Sensitive Troponin T Reference Range: <14.0 ng/L- Negative Female for AMI <22.0 ng/L- Negative Male for AMI >=14 - Abnormal Female indicating possible myocardial injury. >=22 - Abnormal Male indicating possible myocardial injury. Clinicians would have to utilize clinical acumen, EKG, Troponin, and serial changes to determine if it is an Acute Myocardial Infarction or myocardial injury due to an underlying chronic condition. Tommie Miranda DO LAB BLOOD ORDERABLES Fin al Result [facility]
[address] [place] [address], * ECG 12 Lead Chest Pain (04/14/2025 2:28 PM EDT) QT Interval 406 ms ECG QTC Interval 412 ms ECG 04/14/2025 2:28 PM EDT 04/14/2025 2:54 PM EDT Narrative [facility] ECG - 04/14/2025 2:54 PM EDT Test Reason : Chest Pain Blood Pressure : */* mmHG Vent. Rate : 62 BPM Atrial Rate : 62 BPM P-R Int : 140 ms QRS Dur : 78 ms QT Int : 406 ms P-R-T Axes : 49 0 62 degrees QTcB Int : 412 ms Normal sinus rhythm with sinus arrhythmia Normal ECG When compared with ECG of 14-Apr-2025 12:54, No significant change was found Confirmed by TOMMIE MIRANDA MD ([id number]) on 04/14/2025 2:54:50 PM Referred By: EDMD Confirmed By: TOMMIE MIRANDA MD Procedure Note Tommie Miranda DO - 04/14/2025 Test Reason : Chest Pain Blood Pressure : */* mmHG Vent. Rate : 62 BPM Atrial Rate : 62 BPM P-R Int : 140 ms QRS Dur : 78 ms QT Int : 406 ms P-R-T Axes : 49 0 62 degrees QTcB Int : 412 ms Normal sinus rhythm with sinus arrhythmia Normal ECG When compared with ECG of 14-Apr-2025 12:54, No significant change was found Confirmed by TOMMIE MIRANDA MD ([id number]) on 04/14/2025 2:54:50 PM Referred By: EDMD Confirmed By: TOMMIE MIRANDA MD us Tommie Miranda DO ECG ORDERABLES Final Re sult [facility] ECG * XR Chest 1 View (04/14/2025 1:40 PM EDT) Anatomical Region Laterality Modality Body N/A Radiographic Kenia ging 04/14/2025 1:42 PM EDT Impressions 04/14/2025 1:43 PM EDT Impression: No acute cardiopulmonary findings. Electronically Signed: Ignacio Fiore MD 04/14/2025 1:43 PM EDT Workstation ID: [id number] Narrative 04/14/2025 1:43 PM EDT XR CHEST 1 VW Date of Exam: 04/14/2025 12:50 PM EDT Indication: Chest Pain Triage Protocol Comparison: Chest radiograph 05/06/2022. Findings: Cardiomediastinal silhouette is within normal limits. No focal consolidation. No pleural effusion or pneumothorax. Osseous structures are unremarkable. Procedure Note Ignacio Fiore MD - 04/14/2025 XR CHEST 1 VW Date of Exam: 04/14/2025 12:50 PM EDT Indication: Chest Pain Triage Protocol Comparison: Chest radiograph 05/06/2022. Findings: Cardiomediastinal silhouette is within normal limits. No focalconsolidation. No pleural effusion or pneumothorax. Osseous structures areunremarkable. IMPRESSION: Impression: No acute cardiopulmonary findings. Electronically Signed: Ignacio Fiore MD 04/14/2025 1:43 PM EDT Workstation ID: [id number] us Tommiejaya Miranda DO IMG DIAGNOSTIC IMAGING O RDERABLES Final Result * (ABNORMAL) CBC Auto Differential (04/14/2025 1:03 PM EDT) WBC 6.19 3.40 - 10.80 10*3/mm3 04/14/2025 1:13 PM EDT [facility] RBC 5.01 3.77 - 5.28 10*6/mm3 04/14/2025 1:13 PM EDT [facility] LABORATORY Hemoglobin 14.6 12.0 - 15.9 g/dL 04/14/2025 1:13 PM EDT [facility] Hematocrit 43.2 34.0 - 46.6 % 04/14/2025 1:13 PM EDT [facility] MCV 86.2 79.0 - 97.0 fL 04/14/2025 1:13 PM EDT [facility] MCH 29.1 26.6 - 33.0 pg 04/14/2025 1:13 PM EDT [facility] MCHC 33.8 31.5 - 35.7 g/dL 04/14/2025 1:13 PM EDT [facility] RDW 11.7(L) 12.3 - 15.4 % 04/14/2025 1:13 PM EDT [facility] RDW-SD 36.7(L) 37.0 - 54.0 fl 04/14/2025 1:13 PM EDT [facility] MPV 9.3 6.0 - 12.0 fL 04/14/2025 1:13 PM EDT [facility] Platelets 225 140 - 450 10*3/mm3 04/14/2025 1:13 PM EDT [facility] Neutrophil % 53.3 42.7 - 76.0 % 04/14/2025 1:13 PM EDT [facility] Lymphocyte % 35.5 19.6 - 45.3 % 04/14/2025 1:13 PM EDT [facility] Monocyte % 7.3 5.0 - 12.0 % 04/14/2025 1:13 PM EDT [facility] Eosinophil % 2.7 0.3 - 6.2 % 04/14/2025 1:13 PM EDT [facility] Basophil % 1.0 0.0 - 1.5 % 04/14/2025 1:13 PM EDT [facility] Immature Grans % 0.2 0.0 - 0.5 % 04/14/2025 1:13 PM EDT [facility] Neutrophils, Absolute 3.30 1.70 - 7.00 10*3/mm3 04/14/2025 1:13 PM EDT [facility] Lymphocytes, Absolute 2.20 0.70 - 3.10 10*3/mm3 04/14[facility]25 [facility] Monocytes, Absolute 0.45 0.10 - 0.90 10*3/mm3 04/14/2025 1:13 PM EDT [facility] Eosinophils, Absolute 0.17 0.00 - 0.40 10*3/mm3 04/14/2025 1:13 PM EDT [facility] Basophils, Absolute 0.06 0.00 - 0.20 10*3/mm3 04/14/2025 1:13 PM EDT [facility] Immature Grans, Absolute 0.01 0.00 - 0.05 10*3/mm3 04/14/2025 1:13 PM EDT [facility] nRBC 0.0 0.0 - 0.2 /100 WBC 04/14/2025 1:13 PM EDT [facility] Blood Venipuncture / Unknown 04/14/2025 1:03 PM EDT 04/14/2025 1:05 PM EDT us Tommie Miranda DO LAB BLOOD ORDERABLES Fin al Result Performing Organization Address City/[facility]/ZIP Co de Phone Number [facility]
[address] [place] [address], [place] [phone] * Light Blue Top (04/14/2025 1:03 PM EDT) Extra Tube Hold for add-ons. 04/14/2025 1:16 PM EDT [facility] Comment:Auto resulted Blood Venipuncture / Unknown 04/14/2025 1:03 PM EDT 04/14/2025 1:05 PM EDT us Tommie Miranda LAB BLOOD ORDER ONLY Fin al Result Performing Organization Address City/[facility]/ZIP Co de Phone Number [facility]
[address] [place] [address], [place] [phone] * Stubbs Top (04/14/2025 1:03 PM EDT) Extra Tube Hold for add-ons. 04/14/2025 1:16 PM EDT [facility] Comment:Auto resulted. Blood Venipuncture / Unknown 04/14/2025 1:03 PM EDT 04/14/2025 1:05 PM EDT us Tommie Miranda LAB BLOOD ORDER ONLY Fin al Result Performing Organization Address City/[facility]/ZIP Co de Phone Number [facility]
[address] [place] [address], [place] [phone] * Gold Top - SST (04/14/2025 1:03 PM EDT) Extra Tube Hold for add-ons. 04/14/2025 1:16 PM EDT [facility] Comment:Auto resulted. Blood Venipuncture / Unknown 04/14/2025 1:03 PM EDT 04/14/2025 1:05 PM EDT us Tommie Miranda DO LAB BLOOD ORDER ONLY Fin al Result [facility]
[address] [place] [address], * Lavender Top (04/14/2025 1:03 PM EDT) Extra Tube hold for add-on 04/14/2025 1:16 PM EDT [facility] Comment:Auto resulted Blood Venipuncture / Unknown 04/14/2025 1:03 PM EDT 04/14/2025 1:05 PM EDT Tommie Miranda DO LAB BLOOD ORDER ONLY Fin al Result Performing Organization Address [facility] Co de Phone Number [facility]
[address] [place] [address], * Green Top (Gel) (04/14/2025 1:03 PM EDT) Extra Tube Hold for add-ons. 04/14/2025 1:16 PM EDT [facility] Comment:Auto resulted. Blood Venipuncture / Unknown 04/14/2025 1:03 PM EDT 04/14/2025 1:05 PM EDT us Tommie Arangoi DO LAB BLOOD ORDER ONLY Fin al Result Performing Organization Address City/[facility]/ZIP Co de Phone Number [facility]
[address] [place] [address], * BNP (04/14/2025 1:03 PM EDT) proBNP 138.0 0.0 - 900.0 pg/mL 04/14/2025 1:33 PM EDT [facility] Blood Venipuncture / Unknown 04/14/2025 1:03 PM EDT 04/14/2025 1:05 PM EDT Narrative [facility] - 04/14/2025 1:33 PM EDT This assay is used as an aid in the diagnosis of individuals suspected of having heart failure. It can be used as an aid in the diagnosis of acute decompensated heart failure (ADHF) in patients presenting with signs and symptoms of ADHF to the emergency department (ED). In addition, NT-proBNP of <300 pg/mL indicates ADHF is not likely. Age Range Result Interpretation NT-proBNP Concentration (pg/mL: <50 Positive >450 Stubbs 300-450 Negative <300 50-75 Positive >900 Stubbs 300-900 Negative <300 >75 Positive >1800 Stubbs 300-1800 Negative <300 Tommie Miranda [employer] LAB BLOOD ORDERABLES Fin al Result [facility]
[address] [place] [address], * Lipase (04/14/2025 1:03 PM EDT) Lipase 21 13 - 60 U/L 04/14/2025 1:33 PM EDT [facility] Blood Venipuncture / Unknown 04/14/2025 1:03 PM EDT 04/14/2025 1:05 PM EDT Tommie [employer] LAB BLOOD ORDERABLES Fin al Result [facility]
[address] [place] [address], [place] [phone] * Comprehensive Metabolic Panel (04/14/2025 1:03 PM EDT) [facility] Glucose 98 65 - 99 mg/dL 04/14/2025 1:35 PM T [facility] BUN 10.4 6.0 - 20.0 mg/dL 04/14/2025 1:35 PM T [facility] Creatinine 0.71 0.57 - 1.00 mg/dL 04/14/2025 1:35 PM T [facility] Sodium 139 136 - 145 mmol/L 04/14/2025 1:35 PM T [facility] Potassium 4.1 3.5 - 5.2 mmol/L 04/14/2025 1:35 PM T [facility] Comment:Specimen hemolyzed. Result may be falsely elevated. Chloride 102 98 - 107 mmol/L 04/14/2025 1:35 PM T [facility] CO2 25.9 22.0 - 29.0 mmol/L 04/14/2025 1:35 PM T [facility] Calcium 9.1 8.6 - 10.5 mg/dL 04/14/2025 1:35 PM [facility] Total Protein 6.9 6.0 - 8.5 g/dL 04/14/2025 1:35 PM [facility] Albumin 4.2 3.5 - 5.2 g/dL 04/14/2025 1:35 PM [facility] ALT (SGPT) 21 1 - 33 U/L 04/14/2025 1:35 PM T [facility] AST (SGOT) 25 1 - 32 U/L 04/14/2025 1:35 PM [facility] Alkaline Phosphatase 89 39 - 117 U/L 04/14/2025 1:35 PM [facility] Total Bilirubin 0.8 0.0 - 1.2 mg/dL 04/14/2025 1:35 PM T [facility] Globulin 2.7 gm/dL 04/14/2025 1:35 PM T [facility] Comment:Calculated Result A/G Ratio 1.6 g/dL 04/14/2025 1:35 PM EDT [facility] BUN/Creatinine Ratio 14.6 7.0 - 25.0 04/14/2025 1:35 PM EDT [facility] Anion Gap 11.1 5.0 - 15.0 mmol/L 04/14/2025 1:35 PM EDT [facility] eGFR 99.3 >60.0 mL/min/1.7 3 04/14/2025 1:35 PM EDT [facility] Blood Venipuncture / Unknown 04/14/2025 1:03 PM EDT 04/14/2025 1:05 PM EDT [facility] - 04/14/2025 1:35 PM EDT GFR Categories in Chronic Kidney Disease (CKD) GFR Category GFR (mL/min/1.73) Interpretation G1 90 or greater Normal or high (1) G2 60-89 Mild decrease (1) G3a 45-59 Mild to moderate decrease G3b 30-44 Moderate to severe decrease G4 15-29 Severe decrease G5 14 or less Kidney failure (1)In the absence of evidence of kidney disease, neither GFR category G1 or G2 fulfill the criteria for CKD. eGFR calculation 2020 CKD-EPI creatinine equation, which does not include race as a factor Tommie Miranda DO LAB BLOOD ORDERABLES Fin al Result [facility]
[address] [place] [address], * (ABNORMAL) High Sensitivity Troponin T (04/14/2025 1:03 PM EDT) HS Troponin T 14(H) <14 ng/L 04/14/2025 1:33 PM EDT [facility] Blood Venipuncture / Unknown 04/14/2025 1:03 PM EDT 04/14/2025 1:05 PM EDT Narrative [facility] - 04/14/2025 1:33 PM EDT High Sensitive Troponin T Reference Range: <14.0 ng/L- Negative Female for AMI <22.0 ng/L- Negative Male for AMI >=14 - Abnormal Female indicating possible myocardial injury. >=22 - Abnormal Male indicating possible myocardial injury. Clinicians would have to utilize clinical acumen, EKG, Troponin, and serial changes to determine if it is an Acute Myocardial Infarction or myocardial injury due to an underlying chronic condition. Tommie Miranda DO LAB BLOOD ORDERABLES Fin al Result [facility]
[address] [place] [address], * ECG 12 Lead Chest Pain (04/14/2025 12:54 PM EDT) QT Interval 398 ms BH ECG QTC Interval 426 ms ECG 04/14/2025 12:5 4 PM EDT 04/14/2025 12:56 PM EDT Narrative ECG - 04/14/2025 12:56 PM EDT Test Reason : Chest Pain Blood Pressure : */* mmHG Vent. Rate : 69 BPM Atrial Rate : 69 BPM P-R Int : 134 ms QRS Dur : 74 ms QT Int : 398 ms P-R-T Axes : 59 10 60 degrees QTcB Int : 426 ms Normal sinus rhythm with sinus arrhythmia Normal ECG When compared with ECG of 06-May-2022 15:49, No significant change was found Confirmed by TOMMIE MIRANDA MD ([id number]) on 04/14/2025 12:56:47 PM Referred By: EDMD Confirmed By: TOMMIE MIRANDA MD Procedure Note Tommie Miranda DO - 04/14/2025 Test Reason : Chest Pain Blood Pressure : */* mmHG Vent. Rate : 69 BPM Atrial Rate : 69 BPM P-R Int : 134 ms QRS Dur : 74 ms QT Int : 398 ms P-R-T Axes : 59 10 60 degrees QTcB Int : 426 ms Normal sinus rhythm with sinus arrhythmia Normal ECG When compared with ECG of 06-May-2022 15:49, No significant change was found Confirmed by RUBEN ARREGUIN, TOMMIE ([id number]) on 04/14/2025 12:56:47 PM Referred By: EDMD Confirmed By: TOMMIE MIRANDA MD Tommie Miranda DO ECG ORDERABLES Final Re sult BH ECG * Telemetry Scan (04/14/2025 12:51 PM EDT) [facility] Onbase ECG ORDERABLES Final Result documented in this encounter Visit Diagnoses Diagnosis Chest pain- Primary Unspecified chest pain NSTEMI (non-ST elevated myocardial infarction) Acute myocardial infarction, subendocardial infarction, episode of care unspecified Chest pain, unspecified type Elevated troponin Other abnormal blood chemistry NSTEMI (non-ST elevated myocardial infarction) Acute myocardial infarction, subendocardial infarction, episode of care unspecified documented in this encounter Admitting Diagnoses Diagnosis NSTEMI (non-ST elevated myocardial infarction) Acute myocardial infarction, subendocardial infarction, episode of care unspecified documented in this encounter Administered Medications Inactive Administered Medications - up to 3 most recent administrations Medication Order MAR Action Action Date Dose Rate Site acetaminophen (TYLENOL) 160 MG/5ML oral solution 650 mg 650 mg, Oral, Every 4 Hours PRN, Mild Pain, Starting on 04/14/25 at 2042, If given for fever, use fever parameter: fever greater than 100.4 F Based on patient request - if ordered for moderate or severe pain, provider allows for administration of a medication prescribed for a lower pain scale. Do not exceed 4 grams of acetaminophen in a 24 hr period. Max dose of 2gm for AST/ALT greater than 120 units/L. If given for pain, use the following pain scale: Mild Pain = Pain Score of 1-3, CPOT 1-2 Moderate Pain = Pain Score of 4-6, CPOT 3-4 Severe Pain = Pain Score of 7-10, CPOT 5-8 acetaminophen (TYLENOL) suppository 650 mg 650 mg, Rectal, Every 4 Hours PRN, Mild Pain, Starting on 04/14/25 at 2042, If given for fever, use fever parameter: fever greater than 100.4 F Based on patient request - if ordered for moderate or severe pain, provider allows for administration of a medication prescribed for a lower pain scale. Do not exceed 4 grams of acetaminophen in a 24 hr period. Max dose of 2gm for AST/ALT greater than 120 units/L. If given for pain, use the following pain scale: Mild Pain = Pain Score of 1-3, CPOT 1-2 Moderate Pain = Pain Score of 4-6, CPOT 3-4 Severe Pain = Pain Score of 7-10, CPOT 5-8 acetaminophen (TYLENOL) tablet 650 mg 650 mg, Oral, Every 4 Hours PRN, Mild Pain, Starting on 04/14/25 at 2043, If given for fever, use fever parameter: fever greater than 100.4 F Based on patient request - if ordered for moderate or severe pain, provider allows for administration of a medication prescribed for a lower pain scale. Do not exceed 4 grams of acetaminophen in a 24 hr period. Max dose of 2gm for AST/ALT greater than 120 units/L. If given for pain, use the following pain scale: Mild Pain = Pain Score of 1-3, CPOT 1-2 Moderate Pain = Pain Score of 4-6, CPOT 3-4 Severe Pain = Pain Score of 7-10, CPOT 5-8 aspirin chewable tablet 81 mg 81 mg, Oral, Daily, First dose on 04/15/25 at 0900, Herbal/drug interaction: Avoid use with ginkgo biloba. Based on patient request - if ordered for moderate or severe pain, provider allows for administration of a medication prescribed for a lower pain scale. Do not exceed 4 grams of aspirin in a 24 hr period. If given for pain, use the following pain scale: Mild Pain = Pain Score of 1-3, CPOT 1-2 Moderate Pain = Pain Score of 4-6, CPOT 3-4 Severe Pain = Pain Score of 7-10, CPOT 5-8 Given 04/16/2025 8:24 AM EDT 81 mg Given 04/15/2025 10:01 AM EDT 81 mg atorvastatin (LIPITOR) tablet 80 mg 80 mg, Oral, Nightly, First dose on 04/15/25 at 1115, Avoid grapefruit juice. Given 04/15/2025 1:00 PM EDT 80 mg bisacodyl (DULCOLAX) EC tablet 5 mg 5 mg, Oral, Daily PRN, Constipation, Use if polyethylene glycol is ineffective, Starting on 04/14/25 at 2043, Use if no bowel movement after 12 hours. Swallow whole. Do not crush, split, or chew tablet. bisacodyl (DULCOLAX) suppository 10 mg 10 mg, Rectal, Daily PRN, Constipation, Use if bisacodyl oral is ineffective, Starting on 04/14/25 at 2043, Use if no bowel movement after 12 hours. Hold for diarrhea heparin (porcine) injection 4,000 Units 4,000 Units, Intravenous, Once, On 04/14/25 at 1830, For 1 dose, Maximum Dose 4,000 units, Indications: Cardiac or Other Not VTEIndications:Cardiac or Other Not VTE Given 04/14/2025 6:32 PM EDT 4,000 Units heparin [id number] units/250 mL (100 units/mL) in 0.45 % NaCl infusion 10 Units/kg/hr 82.6 kg (8.26 mL/hr), Intravenous, Titrated, Starting on 04/14/25 at 1830, Pharmacy dosing - Cardiac or Other NOT VTE - Boluses (with initial bolus), Indications: Cardiac or other NOT VTEIndications:Cardiac or other NOT VTE Currently Infusing 04/16/2025 8:23 AM EDT 10 Units/kg/hr 8.26 mL/hr Rate Change (DUAL SIGN) 04/16/2025 6:01 AM EDT 10 Units/kg /hr 8.26 mL/hr New Bag 04/15/2025 6:47 PM EDT 11 Units/kg/hr 9.08 mL/h r iopamidol (ISOVUE-370) 76 % injection 100 mL 100 mL, Intravenous, Once in Imaging, On 04/14/25 at 1624, For 1 dose Given 04/14/2025 4:08 PM EDT 85 mL morphine injection 1 mg 1 mg, Intravenous, Every 4 Hours PRN, Severe Pain, Starting on 04/16/25 at 1501, For 1 day, If given for pain, use the following pain scale: Mild Pain = Pain Score of 1-3, CPOT 1-2 Moderate Pain = Pain Score of 4-6, CPOT 3-4 Severe Pain = Pain Score of 7-10, CPOT 5-8 naloxone (NARCAN) injection 0.4 mg 0.4 mg, Intravenous, Every 5 Minutes PRN, Respiratory Depression, Starting on 04/16/25 at 1501, If respiratory rate is less than 8 breaths/minute or patient is difficult to arouse stop any narcotics and contact physician. Administer slow IV push. Repeat as ordered until patient's respiratory rate is greater than 12 breaths/minute. ondansetron (ZOFRAN) injection 4 mg 4 mg, Intravenous, Every 6 Hours PRN, Nausea, Vomiting, Starting on 04/14/25 at 2042, If BOTH ondansetron (ZOFRAN) and promethazine (PHENERGAN) are ordered use ondansetron first and THEN promethazine IF ondansetron is ineffective. Given 04/16/2025 3:55 PM EDT 4 mg ondansetron ODT (ZOFRAN-ODT) disintegrating tablet 4 mg 4 mg, Oral, Every 6 Hours PRN, Nausea, Vomiting, Starting on 04/14/25 at 2042, If BOTH ondansetron (ZOFRAN) and promethazine (PHENERGAN) are ordered use ondansetron first and THEN promethazine IF ondansetron is ineffective. Place on tongue and allow to dissolve. Pharmacy Consult - MTM Daily, First dose on Wed04/15/25 at 0900, Until Discontinued Pharmacy to Dose Heparin Continuous PRN, Starting on 04/14/25 at 1701, Until 04/16/25 at 2037, Consult, Pharmacy to dose heparin, Indications: Cardiac or Other NOT VTEIndications:Cardiac or Other NOT VTE polyethylene glycol (MIRALAX) packet 17 g 17 g, Oral, Daily PRN, Constipation, Use if senna-docusate is ineffective, Starting on 04/14/25 at 2042, Use if no bowel movement after 12 hours. Mix in 6-8 ounces of water. Use 4-8 ounces of water, tea, or juice for each 17 gram dose. sennosides-docusate (PERICOLACE) 8.6-50 MG per tablet 2 tablet 2 tablet, Oral, 2 Times Daily PRN, Constipation, Starting on 04/14/25 at 2042, Start bowel management regimen if patient has not had a bowel movement after 12 hours. sodium chloride 0.9 % flush 10 mL 10 mL, Intravenous, As Needed, Line Care, Starting on 04/14/25 at 1246 sodium chloride 0.9 % flush 10 mL 10 mL, Intravenous, Every 12 Hours Scheduled, First dose on 04/14/25 at 2130 Given 04/16/2025 8:24 AM EDT 10 mL Given 04/15/2025 9:21 PM EDT 10 mL documented in this encounter Active and Recently Administered Medications Times are shown in EDT. Scheduled Medication Order 04/14/2025 04/15/2025 04/16/2025 aspirin chewable tablet 81 mg 81 mg, Oral, Daily, First dose on 04/15/25 at 0900, Herbal/drug interaction: Avoid use with ginkgo biloba. Based on patient request - if ordered for moderate or severe pain, provider allows for administration of a medication prescribed for a lower pain scale. Do not exceed 4 grams of aspirin in a 24 hr period. If given for pain, use the following pain scale: Mild Pain = Pain Score of 1-3, CPOT 1-2 Moderate Pain = Pain Score of 4-6, CPOT 3-4 Severe Pain = Pain Score of 7-10, CPOT 5-8 1001 (Given - Provider: Delilah Benavides RN) 0824 (Given - Provider: Chad Jay RN)1424 (MAR Hold - Provider: Automatic Transfer Provider - Reason: Unreviewed Transfer Orders)2037 (MAR Unhold - Provider: Automatic Discharge Provider) atorvastatin (LIPITOR) tablet 80 mg 80 mg, Oral, Nightly, First dose on 04/15/25 at 1115, Avoid grapefruit juice. 1300 (Given - Provider: Delilah Benavides RN) 1424 (MAR Hold - Provider: Automatic Transfer Provider - Reason: Unreviewed Transfer Orders)2037 (MAR Unhold - Provider: Automatic Discharge Provider) budesonide-formoterol (SYMBICORT) 160-4.5 MCG/ACT inhaler 2 puff 2 puff, Inhalation, 2 Times Daily - RT, First dose on 04/14/25 at 2130, (SP) Shake well. Rinse mouth after use, do not swallow water. Send aerosols to pharmacy in ziplock bag for proper disposal. 2107 (Not Given - Provider: Collin Theodore, FONDANT PUFF MAKER - Reason: Patient/family refused) 0837 (Not Given - Provider: Sierra Givens, LANDSCAPING MANAGER - Reason: Patient/family refused)2129 (Canceled Entry - Provider: Collin Theodore, FONDANT PUFF MAKER - Comment: pt refuses) 0845 (Not Given - Provider: Yessi Harris, FONDANT [employer]FF MAKER - Reason: Patient/family refused)142 ([facility] Hold - Provider: Automatic Transfer Provider - Reason: Unreviewed Transfer Orders)2037 ([facility] Unhold - Provider: Automatic Discharge Provider) heparin (porcine) injection 4,000 Units (COMPLETED) 4,000 Units, Intravenous, Once, On 04/14/25 at 1830, For 1 dose, Maximum Dose 4,000 units, Indications: Cardiac or Other Not VTE 183 (Given - Provider: Ivania Pak, ELIZABETH) iopamidol (ISOVUE-370) 76 % injection 100 mL (COMPLETED) 100 mL, Intravenous, Once in Imaging, On 04/14/25 at 1624, For 1 dose 1608 (Given - Provider: Wendi Machado) Pharmacy Consult - MTM Daily, First dose on 04/15/25 at 0900, Until Discontinued 0900 (Due) 0811 (Canceled Entry - Provider: Chad Jay, ELIZABETH)142 ([facility] Hold - Provider: Automatic Transfer Provider - Reason: Unreviewed Transfer Orders)2037 ([facility] Unhold - Provider: Automatic Discharge Provider) sodium chloride 0.9 % flush 10 mL 10 mL, Intravenous, Every 12 Hours Scheduled, First dose on 04/14/25 at 2130 0035 (Canceled Entry - Provider: Evonne Echevarria, ELIZABETH)1711 (Canceled Entry - Provider: Delilah Benavides, ELIZABETH)212 (Given - Provider: Corrine Oshea, ELIZABETH) 0824 (Given - Provider: Chad Jay, ELIZABETH)142 ([facility] Hold - Provider: Automatic Transfer Provider - Reason: Unreviewed Transfer Orders)2037 ([facility] Unhold - Provider: Automatic Discharge Provider) Continuous Medication Order 04/14/2025 04/15/2025 04/16/2025 heparin [id number] units/250 mL (100 units/mL) in 0.45 % NaCl infusion 10 Units/kg/hr 82.6 kg (8.26 mL/hr), Intravenous, Titrated, Starting on 04/14/25 at 1830, Pharmacy dosing - Cardiac or Other NOT VTE - Boluses (with initial bolus), Indications: Cardiac or other NOT VTE 1832 (New Bag - Provider: Ivania Pak, RN)1834 (Currently Infusing - Provider: Ivania Pak, RN) 0243 (Rate Change (DUAL SIGN) - Provider: Evonne Echevarria RN)1847 (New Bag - Provider: Delilah Benavides RN) 0601 (Rate Change (DUAL SIGN) - Provider: Corrine Oshea, RN)0716 (Handoff - Provider: Chad Jay, RN)0823 (Currently Infusing - Provider: Chad Jay, RN)1400 (Stopped - Provider: Chad Jay, RN) sodium chloride 0.9 % infusion 100 mL/hr, Intravenous, Continuous, Starting on 04/16/25 at 1507, For 2 hours 1650 (Not Given - Provider: Chad Jay, RN - Reason: Other) PRN Medication Order 04/14/2025 04/15/2025 04/16/2025 acetaminophen (TYLENOL) 160 MG/5ML oral solution 650 mg(Linked Group 1) 650 mg, Oral, Every 4 Hours PRN, Mild Pain, Starting on 04/14/25 at 2042, If given for fever, use fever parameter: fever greater than 100.4 F Based on patient request - if ordered for moderate or severe pain, provider allows for administration of a medication prescribed for a lower pain scale. Do not exceed 4 grams of acetaminophen in a 24 hr period. Max dose of 2gm for AST/ALT greater than 120 units/L. If given for pain, use the following pain scale: Mild Pain = Pain Score of 1-3, CPOT 1-2 Moderate Pain = Pain Score of 4-6, CPOT 3-4 Severe Pain = Pain Score of 7-10, CPOT 5-8 1424 (NOV Hold - Pro vider: Automatic Transfer Provider - Reason: Unreviewed Transfer Orders)2037 (NOV Unhold - Provider: Automatic Discharge Provider) acetaminophen (TYLENOL) suppository 650 mg(Linked Group 1) 650 mg, Rectal, Every 4 Hours PRN, Mild Pain, Starting on 04/14/25 at 2042, If given for fever, use fever parameter: fever greater than 100.4 F Based on patient request - if ordered for moderate or severe pain, provider allows for administration of a medication prescribed for a lower pain scale. Do not exceed 4 grams of acetaminophen in a 24 hr period. Max dose of 2gm for AST/ALT greater than 120 units/L. If given for pain, use the following pain scale: Mild Pain = Pain Score of 1-3, CPOT 1-2 Moderate Pain = Pain Score of 4-6, CPOT 3-4 Severe Pain = Pain Score of 7-10, CPOT 5-8 1424 ([facility] Hold - Pro vider: Automatic Transfer Provider - Reason: Unreviewed Transfer Orders)2037 ([facility] Unhold - Provider: Automatic Discharge Provider) acetaminophen (TYLENOL) tablet 650 mg(Linked Group 1) 650 mg, Oral, Every 4 Hours PRN, Mild Pain, Starting on 04/14/25 at 2042, If given for fever, use fever parameter: fever greater than 100.4 F Based on patient request - if ordered for moderate or severe pain, provider allows for administration of a medication prescribed for a lower pain scale. Do not exceed 4 grams of acetaminophen in a 24 hr period. Max dose of 2gm for AST/ALT greater than 120 units/L. If given for pain, use the following pain scale: Mild Pain = Pain Score of 1-3, CPOT 1-2 Moderate Pain = Pain Score of 4-6, CPOT 3-4 Severe Pain = Pain Score of 7-10, CPOT 5-8 142 ([facility] Hold - Pro vider: Automatic Transfer Provider - Reason: Unreviewed Transfer Orders)2037 ([facility] Unhold - Provider: Automatic Discharge Provider) albuterol sulfate HFA (PROVENTIL HFA;VENTOLIN HFA;PROAIR HFA) inhaler 2 puff 2 puff, Inhalation, Every 6 Hours PRN, Wheezing, Shortness of Air, Starting on 04/14/25 at 2042, Include Respiratory Treatment Education (SP) Shake well. 1424 ([facility] Hold - Pro vider: Automatic Transfer Provider - Reason: Unreviewed Transfer Orders)2037 ([facility] Unhold - Provider: Automatic Discharge Provider) ALPRAZolam (XANAX) tablet 0.25 mg 0.25 mg, Oral, 3 Times Daily PRN, Anxiety, Starting on 04/16/25 at 1501, For 1 day, (MUSTAPHA) Caution: Look alike/sound alike drug alert. Avoid grapefruit juice atropine sulfate (0.1 mg/mL) Intravenous 0.5 mg / 5 mL 0.5 mg, Intravenous, Every 5 Minutes PRN, Bradycardia, HR less than 60 bpm, Starting on Wed04/16/25 at 1502, For 1 dose, Repeat every 5 minutes x 1 dose, then call MD. bisacodyl (DULCOLAX) EC tablet 5 mg(Linked Group 2) 5 mg, Oral, Daily PRN, Constipation, Use if polyethylene glycol is ineffective, Starting on 04/14/25 at 2043, Use if no bowel movement after 12 hours. Swallow whole. Do not crush, split, or chew tablet. 142 ([facility] Hold - Pro vider: Automatic Transfer Provider - Reason: Unreviewed Transfer Orders)2037 ([facility] Unhold - Provider: Automatic Discharge Provider) bisacodyl (DULCOLAX) suppository 10 mg(Linked Group 2) 10 mg, Rectal, Daily PRN, Constipation, Use if bisacodyl oral is ineffective, Starting on 04/14/25 at 2043, Use if no bowel movement after 12 hours. Hold for diarrhea 1424 ([facility] Hold - Pro vider: Automatic Transfer Provider - Reason: Unreviewed Transfer Orders)2037 ([facility] Unhold - Provider: Automatic Discharge Provider) Calcium Replacement - Follow Nurse / BPA Driven Protocol Open Order & Select BHS Electrolyte Replacement Protocol Algorithm to View Details 1424 ([facility] Hold - Pro vider: Automatic Transfer Provider - Reason: Unreviewed Transfer Orders)2037 ([facility] Unhold - Provider: Automatic Discharge Provider) fentaNYL citrate (PF) (SUBLIMAZE) injection (CANCELED) Code / Trauma / Sedation Medication, Starting on Wed04/16/25 at 1432 1432 (Given - Provid er: Mendy Sheehan RN) HYDROcodone-acetaminophen (NORCO) 7.5-325 MG per tablet 1 tablet 1 tablet, Oral, Every 4 Hours PRN, Moderate Pain, Starting on Wed04/16/25 at 1501, For 10 days, [MUSTAPHA] Do not exceed 4 grams of acetaminophen in a 24 hr period. Max dose of 2gm for AST/ALT greater than 120 units/L If given for pain, use the following pain scale: Mild Pain = Pain Score of 1-3, CPOT 1-2 Moderate Pain = Pain Score of 4-6, CPOT 3-4 Severe Pain = Pain Score of 7-10, CPOT 5-8 iopamidol (ISOVUE-370) 76 % injection (CANCELED) Code / Trauma / Sedation Medication, Starting on Wed04/16/25 at 1456 1456 (Given - Provid er: Tracey Cheng MD) lidocaine PF 1% (XYLOCAINE) injection (CANCELED) Code / Trauma / Sedation Medication, Starting on Wed04/16/25 at 1434 1435 (Given - Provid er: Tracey Cheng MD)1445 (Given - Provider: Tracey Cheng MD) Magnesium Standard Dose Replacement - Follow Nurse / BPA Driven Protocol Open Order & Select BHS Electrolyte Replacement Protocol Algorithm to View Details 1424 ([facility] Hold - Pro vider: Automatic Transfer Provider - Reason: Unreviewed Transfer Orders)2037 ([facility] Unhold - Provider: Automatic Discharge Provider) midazolam (VERSED) injection (CANCELED) Code / Trauma / Sedation Medication, Starting on Wed04/16/25 at 1432 1432 (Given - Provid er: Mendy Sheehan RN) morphine injection 1 mg(Linked Group 3) 1 mg, Intravenous, Every 4 Hours PRN, Severe Pain, Starting on Wed04/16/25 at 1501, For 1 day, If given for pain, use the following pain scale: Mild Pain = Pain Score of 1-3, CPOT 1-2 Moderate Pain = Pain Score of 4-6, CPOT 3-4 Severe Pain = Pain Score of 7-10, CPOT 5-8 naloxone (NARCAN) injection 0.4 mg(Linked Group 3) 0.4 mg, Intravenous, Every 5 Minutes PRN, Respiratory Depression, Starting on Wed04/16/25 at 1501, If respiratory rate is less than 8 breaths/minute or patient is difficult to arouse stop any narcotics and contact physician. Administer slow IV push. Repeat as ordered until patient's respiratory rate is greater than 12 breaths/minute. nitroglycerin (NITROSTAT) SL tablet 0.4 mg 0.4 mg, Sublingual, Every 5 Minutes PRN, Chest Pain, Starting on Wed04/16/25 at 1501, Notify Provider if Pain Unrelieved After 3 Doses May administer up to 3 doses per episode. Hold if SBP less than 100. ondansetron (ZOFRAN) injection 4 mg(Linked Group 4) 4 mg, Intravenous, Every 6 Hours PRN, Nausea, Vomiting, Starting on 04/14/25 at 2042, If BOTH ondansetron (ZOFRAN) and promethazine (PHENERGAN) are ordered use ondansetron first and THEN promethazine IF ondansetron is ineffective. 1424 ([facility] Hold - Pro vider: Automatic Transfer Provider - Reason: Unreviewed Transfer Orders)155 ([facility] Unhold - Provider: Edin Rosen MD)1555 (Given - Provider: Deidra Omer, ELIZABETH) ondansetron ODT (ZOFRAN-ODT) disintegrating tablet 4 mg(Linked Group 4) 4 mg, Oral, Every 6 Hours PRN, Nausea, Vomiting, Starting on 04/14/25 at 2042, If BOTH ondansetron (ZOFRAN) and promethazine (PHENERGAN) are ordered use ondansetron first and THEN promethazine IF ondansetron is ineffective. Place on tongue and allow to dissolve. 1424 ([facility] Hold - Pro vider: Automatic Transfer Provider - Reason: Unreviewed Transfer Orders)155 ([facility] Unhold - Provider: Edin Rosen MD)1555 (Not Given: See Alt - Provider: Deidra Omer, ELIZABETH) Pharmacy to Dose Heparin Continuous PRN, Starting on 04/14/25 at 1701, Until Wed04/16/25 at 2037, Consult, Pharmacy to dose heparin, Indications: Cardiac or Other NOT VTE Phosphorus Replacement - Follow Nurse / BPA Driven Protocol Open Order & Select BHS Electrolyte Replacement Protocol Algorithm to View Details 142 ([facility] Hold - Pro vider: Automatic Transfer Provider - Reason: Unreviewed Transfer Orders)2037 ([facility] Unhold - Provider: Automatic Discharge Provider) polyethylene glycol (MIRALAX) packet 17 g(Linked Group 2) 17 g, Oral, Daily PRN, Constipation, Use if senna-docusate is ineffective, Starting on 04/14/25 at 2042, Use if no bowel movement after 12 hours. Mix in 6-8 ounces of water. Use 4-8 ounces of water, tea, or juice for each 17 gram dose. 1424 ([facility] Hold - Pro vider: Automatic Transfer Provider - Reason: Unreviewed Transfer Orders)2037 ([facility] Unhold - Provider: Automatic Discharge Provider) Potassium Replacement - Follow Nurse / BPA Driven Protocol Open Order & Select S Electrolyte Replacement Protocol Algorithm to View Details sennosides-docusate (PERICOLACE) 8.6-50 MG per tablet 2 tablet(Linked Group 2) 2 tablet, Oral, 2 Times Daily PRN, Constipation, Starting on 04/14/25 at 2043, Start bowel management regimen if patient has not had a bowel movement after 12 hours. 1424 ([facility] Hold - Pro vider: Automatic Transfer Provider - Reason: Unreviewed Transfer Orders)2037 ([facility] Unhold - Provider: Automatic Discharge Provider) sodium chloride 0.9 % flush 10 mL 10 mL, Intravenous, As Needed, Line Care, Starting on 04/14/25 at 1246 1424 ([facility] Hold - Pro vider: Automatic Transfer Provider - Reason: Unreviewed Transfer Orders)2037 ([facility] Unhold - Provider: Automatic Discharge Provider) sodium chloride 0.9 % flush 10 mL 10 mL, Intravenous, As Needed, Line Care, Starting on 04/14/25 at 2043 1424 ([facility] Hold - Pro vider: Automatic Transfer Provider - Reason: Unreviewed Transfer Orders)2037 ([facility] Unhold - Provider: Automatic Discharge Provider) sodium chloride 0.9 % infusion 250 mL 250 mL, Intravenous, at 999 mL/hr, Once As Needed, 250ml bolus at 999ml/hr for symptomatic vasovagal response, Starting on 04/16/25 at 1502, For 1 hour sodium chloride 0.9 % infusion 40 mL 40 mL, Intravenous, at 100 mL/hr, As Needed, Line Care, Starting on 04/14/25 at 2043, Following administration of an IV intermittent medication, flush line with 40mL NS at 100mL/hr. 1424 ([facility] Hold - Pro vider: Automatic Transfer Provider - Reason: Unreviewed Transfer Orders)2037 ([facility] Unhold - Provider: Automatic Discharge Provider) Linked Groups Order Group 1: acetaminophen (TYLENOL) tablet 650 mgJump to med 650 mg, Oral, Every 4 Hours PRN, Mild Pain, Starting on 04/14/25 at 2042, If given for fever, use fever parameter: fever greater than 100.4 F Based on patient request - if ordered for moderate or severe pain, provider allows for administration of a medication prescribed for a lower pain scale. Do not exceed 4 grams of acetaminophen in a 24 hr period. Max dose of 2gm for AST/ALT greater than 120 units/L. If given for pain, use the following pain scale: Mild Pain = Pain Score of 1-3, CPOT 1-2 Moderate Pain = Pain Score of 4-6, CPOT 3-4 Severe Pain = Pain Score of 7-10, CPOT 5-8 Or acetaminophen (TYLENOL) 160 MG/5ML oral solution 650 mgJump to med 650 mg, Oral, Every 4 Hours PRN, Mild Pain, Starting on 04/14/25 at 2042, If given for fever, use fever parameter: fever greater than 100.4 F Based on patient request - if ordered for moderate or severe pain, provider allows for administration of a medication prescribed for a lower pain scale. Do not exceed 4 grams of acetaminophen in a 24 hr period. Max dose of 2gm for AST/ALT greater than 120 units/L. If given for pain, use the following pain scale: Mild Pain = Pain Score of 1-3, CPOT 1-2 Moderate Pain = Pain Score of 4-6, CPOT 3-4 Severe Pain = Pain Score of 7-10, CPOT 5-8 Or acetaminophen (TYLENOL) suppository 650 mgJump to med 650 mg, Rectal, Every 4 Hours PRN, Mild Pain, Starting on 04/14/25 at 2042, If given for fever, use fever parameter: fever greater than 100.4 F Based on patient request - if ordered for moderate or severe pain, provider allows for administration of a medication prescribed for a lower pain scale. Do not exceed 4 grams of acetaminophen in a 24 hr period. Max dose of 2gm for AST/ALT greater than 120 units/L. If given for pain, use the following pain scale: Mild Pain = Pain Score of 1-3, CPOT 1-2 Moderate Pain = Pain Score of 4-6, CPOT 3-4 Severe Pain = Pain Score of 7-10, CPOT 5-8 Group 2: sennosides-docusate (PERICOLACE) 8.6-50 MG per tablet 2 tabletJump to med 2 tablet, Oral, 2 Times Daily PRN, Constipation, Starting on 04/14/25 at 2042, Start bowel management regimen if patient has not had a bowel movement after 12 hours. And polyethylene glycol (MIRALAX) packet 17 gJump to med 17 g, Oral, Daily PRN, Constipation, Use if senna-docusate is ineffective, Starting on 04/14/25 at 2042, Use if no bowel movement after 12 hours. Mix in 6-8 ounces of water. Use 4-8 ounces of water, tea, or juice for each 17 gram dose. And bisacodyl (DULCOLAX) EC tablet 5 mgJump to med 5 mg, Oral, Daily PRN, Constipation, Use if polyethylene glycol is ineffective, Starting on 04/14/25 at 2042, Use if no bowel movement after 12 hours. Swallow whole. Do not crush, split, or chew tablet. And bisacodyl (DULCOLAX) suppository 10 mgJump to med 10 mg, Rectal, Daily PRN, Constipation, Use if bisacodyl oral is ineffective, Starting on 04/14/25 at 2042, Use if no bowel movement after 12 hours. Hold for diarrhea Group 3: morphine injection 1 mgJump to med 1 mg, Intravenous, Every 4 Hours PRN, Severe Pain, Starting on Wed04/16/25 at 1501, For 1 day, If given for pain, use the following pain scale: Mild Pain = Pain Score of 1-3, CPOT 1-2 Moderate Pain = Pain Score of 4-6, CPOT 3-4 Severe Pain = Pain Score of 7-10, CPOT 5-8 And naloxone (NARCAN) injection 0.4 mgJump to med 0.4 mg, Intravenous, Every 5 Minutes PRN, Respiratory Depression, Starting on Wed04/16/25 at 1501, If respiratory rate is less than 8 breaths/minute or patient is difficult to arouse stop any narcotics and contact physician. Administer slow IV push. Repeat as ordered until patient's respiratory rate is greater than 12 breaths/minute. Group 4: ondansetron ODT (ZOFRAN-ODT) disintegrating tablet 4 mgJump to med 4 mg, Oral, Every 6 Hours PRN, Nausea, Vomiting, Starting on 04/14/25 at 2042, If BOTH ondansetron (ZOFRAN) and promethazine (PHENERGAN) are ordered use ondansetron first and THEN promethazine IF ondansetron is ineffective. Place on tongue and allow to dissolve. Or ondansetron (ZOFRAN) injection 4 mgJump to med 4 mg, Intravenous, Every 6 Hours PRN, Nausea, Vomiting, Starting on 04/14/25 at 2042, If BOTH ondansetron (ZOFRAN) and promethazine (PHENERGAN) are ordered use ondansetron first and THEN promethazine IF ondansetron is ineffective. documented in this encounter Care Teams Aids Social Worker Relationship Specialty Start Date End Date Nita Chanel DO [address] [place] [address] PCP - General Family Medicine 04/14/25 documented as of this encounter
--- OUTSIDE RECORDS SUMMARY | 2025-04-16 14:25 | XMS_ITS | Encounter Summary ---
Author Organization [facility] ystem Address [address] [place] [address] Care Team Providers Care Elevator Tender Name Role Phone No Chanelecca Brenda JENKINS Primary Care Provider [phone] Reason for Visit * Reason Comments Chest Pain * Auth/Cert Specialty Diagnoses / Procedures Referred By Contac t Referred To Contact Diagnoses NSTEMI (non-ST elevated myocardial infarction) Referral ID Status Reason Start Date Expiration Date Visits Re quested Visits Authorized 1 1 Encounter Details Date Type Department Care Team (Late st Contact Info) Description 04/16/2025 2:25 PM EDT - 04/16/2025 3:25 PM EDT Surgery [facility] [address] [phone] Tracey Cheng MD [address] [facility] [address] [facility] [address] [place] [address] Left Heart Cath [96777 (CPT )] Social History Tobacco Use Types Packs/Day Years Used Date Smoking Tobacco: Never Smokeless Tobacco: Never Alcohol Use Standard Drinks/Week Comments No 0 (1 standard drink = 0.6 oz pur e alcohol) [facility] Utilities Answer Date Recorded In the past 12 months has e electric, gas, oil, or water company threatened [...] and heating? Not hard at all 04/16/2025 [facility] Occupational Stress Questionnaire Answer Date Recorded [...] GED or equivalent No 04/16/2025 Preferred Language Maltese 04/16/2025 PHQ-2 Answer Date Recorded Patient Health Questionnaire-2 Score 0 04/16/2025 Comments No Sex and Gender Information Value Date Recorded Sex Assigned at Not on file Legal Sex Female 10:33 AM EDT Gender Identity Not on file Sexual Orientation Not on file documented as of this encounter Last Filed Vital Signs Vital Sign Reading Time Taken Comments Blood Pressure 146/81 04/16/2025 3:25 PM EDT Pulse 86 04/16/2025 3:25 PM EDT Temperature 36.6 C (97.9 F) 04/16/2025 11:05 AM EDT Respiratory Rate 16 04/16/2025 2:58 PM EDT Oxygen Saturation 98% 04/16/2025 3:25 PM EDT Inhaled Oxygen Concentration - - [...] alcohol? Never 04/16/2025 10:03 AM EDT Sarita Shirley, ELIZABETH Q2: How many drinks containing alcohol do you have on a typical day when you are drinking? Patient does not drink 04/16/2025 10:03 AM EDSarita Conley RN Q3: How often do you have six or more drinks on one occasion? Never 04/16/2025 10:03 AM Sarita Yanez RN * Over the past 2 weeks, how often have you been bothered by any of the following problems? Question Answer Date of Assessment Author Patient Health Questionnaire -2 Score 0 04/16/2025 10:03 AM TOMT Sarita Shirley RN * Calculated C-SSRS Risk Score (Lifetime/Recent) Answer Date of Assessment Author No Risk Indicated 04/14/2025 12:53 PM EDT Ivania Pak RN * [place] Suicide Severity Rating Scale (Screener/Recent Self-Report) Question [...] hopeless Not at all 04/16/2025 10:03 AM Sarita Yanez RN documented as of this encounter Discharge Summaries * Edin Rosen MD - 04/16/2025 4:21 PM EDT Images from the original note were not included. [facility] Medicine Services DISCHARGE SUMMARY Patient Name: [...] x 1 month, with follow-up with primary black off worker in 1 month. - Patient reportedly intolerant [...] and/or Most Recent Results LAB RESULTS: Lab 04/15/25 0117 04/14/25 1824 04/14/25 1303 WBC 8.00 -- 6.19 [...] percutaneous anterior wall puncture technique. A 6 Nepalese arterial sheath was placed in the right femoral artery using a modified Seldinger technique. Selective coronary arteriography was performed using the Margarette technique with a 6 Nepalese 4 curved Margarette right catheter and a 6 Nepalese 4 curved Margarette left catheter. Nonionic contrast [...] Kimball MD 54:56 PM EDT Workstation ID: [id number] XR Chest 1 View Result Date: 04/14/2025 XR CHEST 1 VW Date of Exam: 04/14/2025 12:50 PM EDT Indication: Chest Pain Triage Protocol Comparison: Chest radiograph 05/06/2022. Findings: Cardiomediastinal silhouette is within normal limits. No focal consolidation. No pleural effusion or pneumothorax. Osseous structures are unremarkable. Impression: No acute cardiopulmonary findings. Electronically Signed: Ignacio Fiore MD 04/14/2025 1:43 PM EDT Workstation ID: [id number] Results for orders placed during the hospital [...] to Resuscitate); Full Support Ordered at: 04/14/25 3957 Code Status (Patient has no pulse and [...] minutes on this discharge activity which included: [id number] with the patient, reviewing the data in the system, coordination of the care with the nursing staff as well as consultants, documentation, and entering orders. documented in this encounter Discharge Instructions * Attachments The following attachments cannot be sent through Care Everywhere. * Atorvastatin Tablets (Maltese) * Colchicine Tablets (Maltese) * Aspirin Tablets (Maltese) * Coronary Angiogram Care After (Maltese) * Nonspecific Chest Pain Adult (Maltese) documented in this encounter Medications at Time [...] Arana PA-C - 04/16/2025 12:14 PM EDT [facility] INPATIENT PROGRESS NOTE Date of Admission: 04/14/2025 [...] Kimball MD 54:56 PM EDT Workstation ID: [id number] XR Chest 1 View Result Date: 04/14/2025 Impression: No acute cardiopulmonary findings. Electronically Signed: Ignacio Fiore MD 04/14/2025 1:43 PM EDT Workstation ID: [id number] Results for orders placed during the hospital [...] have reviewed this documentation and agree. * Opii, Wycliffe, MD - 04/16/2025 6:07 AM EDT Images from the original note were not included. [facility] Medicine Services PROGRESS NOTE Patient Name: Kallie Maria : 1965 Date of Admission: 04/14/2025 Primary Care Physician: Nita Chanel, Subjective Subjective CC: Follow-up chest pain HPI: [...] MD 04/14/2025 4:56 PM EDT Workstation ID: [id number] XR Chest 1 View Result Date: 04/14/2025 XR CHEST 1 VW Date of Exam: 04/14/2025 12:50 PM EDT Indication: Chest Pain Triage Protocol Comparison: Chest radiograph 05/06/2022. Findings: Cardiomediastinal silhouette is within normal limits. No focal consolidation. No pleural effusion or pneumothorax. Osseous structures are unremarkable. Impression: Impression: No acute cardiopulmonary findings. Electronically Signed: Ignacio Fiore MD 04/14/2025 1:43 PM EDT Workstation ID: [id number] Results for orders placed during the hospital [...] - Cardiology consulted and following, plan for [facility] today, continue aspirin and heparin gtt. - [...] AM-PAC 6 Clicks Score (PT): 24 (04/15/25 7359) CODE STATUS: Code Status and Medical Interventions: CPR (Attempt to Resuscitate); Full Support Ordered at: 04/14/25 7465 Code Status (Patient has no pulse and is not breathing): CPR (Attempt to Resuscitate) Medical Interventions (Patient has pulse or is breathing): Full Support Level Of Support Discussed With: Patient Edin Rosen MD 04/16/25 * Adriana Hill, Renal Technician - 04/15/2025 5:38 PM EDT Karis Corrales, [facility] 04/15/2025 10:27 Pharmacy to Dose Heparin Infusion [...] counseled, bolus and pump setup verified 04/14 0117 0.6 12 -- -1 11 0800 D/w RN 04/15 0820 0.47 11 -- -- 11 1500 D/w RN 04/15 1546 0.48 11 -- -- 11 0600 D/w RN Delilah Hill, Renal Technician 04/15/25 17:20 EDT Cosigned by Gonzalez Kuhn, PharmD at 04/15/2025 8:22 PM EDT Associated attestation - Gonzalez Kuhn, PharmD - 04/15/2025 8:22 PM EDT I have reviewed this documentation and agree. * Karis Corrales, [facility] - 04/15/2025 10:25 AM EDT Pharmacy to [...] from the original note were not included. [facility] Medicine Services PROGRESS NOTE Patient Name: [...] No rashes Results Reviewed: LAB RESULTS: Lab 04/15/2511604/14/25182304/14/25143304/14/25 1303 WBC 8.00 -- -- 6.19 HEMOGLOBIN [...] 80 89 LIPASE -- 21 Lab 04/14/25182304/14/25 14304/14/25 1303 PROBNP -- -- 138.0 HSTROP T [...] MD 04/14/2025 4:56 PM EDT Workstation ID: [id number] XR Chest 1 View Result Date: 04/14/2025 XR CHEST 1 VW Date of Exam: 04/14/2025 12:50 PM EDT Indication: Chest Pain Triage Protocol Comparison: Chest radiograph 05/06/2022. Findings: Cardiomediastinal silhouette is within normal limits. No focal consolidation. No pleural effusion or pneumothorax. Osseous structures are unremarkable. Impression: Impression: No acute cardiopulmonary findings. Electronically Signed: Ignacio Fiore MD 04/14/2025 1:43 PM EDT Workstation ID: [id number] Results for orders placed during the hospital [...] to Resuscitate); Full Support Ordered at: 04/14/25 186 Code Status (Patient has no pulse and [...] from the original note were not included. [facility] Medicine Services HISTORY AND PHYSICAL Patient [...] HEART CATH; Surgeon: Moiz Beaver MD; Location: [facility] CATH INVASIVE LOCATION; Service: Cardiovascular; Laterality: N/A; CARDIAC CATHETERIZATION 11/2021 NO INTERVENTION CORONARY STENT PLACEMENT 07/2020 X1 GALLBLADDER SURGERY HERNIA REPAIR ORIF ULNA/RADIUS FRACTURES Left 05/12/2022 Procedure: INTRA ARTICULAR DISTAL RADIUS OPEN REDUCTION INTERNAL FIXATION LEFT; Surgeon: Devante Matthews Jr., MD; Location: [facility] OR; Service: Orthopedics; Laterality: Left; SKIN CANCER [...] MD 04/14/2025 4:56 PM EDT Workstation ID: [id number] XR Chest 1 View Result Date: 04/14/2025 XR CHEST 1 VW Date of Exam: 04/14/2025 12:50 PM EDT Indication: Chest Pain Triage Protocol Comparison: Chest radiograph 05/06/2022. Findings: Cardiomediastinal silhouette is within normal limits. No focal consolidation. No pleural effusion or pneumothorax. Osseous structures are unremarkable. Impression: Impression: No acute cardiopulmonary findings. Electronically Signed: Ignacio Fiore MD 04/14/2025 1:43 PM EDT Workstation ID: [id number] Results for orders placed during the hospital [...] 04/14/25, 6:00 PM EDT Cosigned by Annel Jules MD at 04/14/2025 6:53 PM EDT Associated attestation - Annel Jules MD - 04/14/2025 6:53 PM EDT I have reviewed this documentation and agree. documented in this encounter Consult Notes * Nakia Josue RN - 04/16/2025 3:06 PM EDTAssociated Order(s): IP CONSULT TO PIPE FOREMAN Diabetes Education Patient Name: Kallie Maria Date of : 1965 Admit Date: 04/14/2025 Consult received for diabetes education per post cardiac catheterization protocol. A1c is 5.23%. Nohistory of diabetes per H&P. Please reconsult as needed. Electronically signed by: Nakia Josue RN 04/16/25 15:07 EDT * Navneet Barnes III, MD - 04/15/2025 9:56 AM EDTAssociated Order(s): IP CONSULT TO CARDIOLOGY [facility] CARDIOLOGY CONSULTATION NOTE Kallie Maria : 1965 Date of Admission:04/14/2025 Date of Consultation: 04/15/25 PCP: Nita Chanel DO IDENTIFICATION: A 59 y.o. female resident of [place], [place] Chief Complaint Patient presents with Chest [...] HEART CATH; Surgeon: Moiz Beaver MD; Location: [facility] CATH INVASIVE LOCATION; Service: Cardiovascular; Laterality: N/A; CARDIAC CATHETERIZATION 11/2021 NO INTERVENTION CORONARY STENT PLACEMENT 07/2020 X1 GALLBLADDER SURGERY HERNIA REPAIR ORIF ULNA/RADIUS FRACTURES Left 05/12/2022 Procedure: INTRA ARTICULAR DISTAL RADIUS OPEN REDUCTION INTERNAL FIXATION LEFT; Surgeon: Devante Matthews Jr., MD; Location: [facility] OR; Service: Orthopedics; Laterality: Left; SKIN CANCER [...] Intake/Output Summary (Last 24 hours) at 04/15/2025 0956 Last data filed at 04/15/2025 0607 Gross [...] Kimball MD 54:56 PM EDT Workstation ID: [id number] XR Chest 1 View Result Date: 04/14/2025 Impression: No acute cardiopulmonary findings. Electronically Signed: Ignacio Fiore MD 04/14/2025 1:43 PM EDT Workstation ID: [id number] Current Medications: aspirin, 81 mg, Oral, Daily budesonide-formoterol, 2 puff, Inhalation, BID - RT pharmacy consult - MTM, , Not Applicable, Daily sodium chloride, 10 mL, Intravenous, Q12H heparin, 11 Units/kg/hr, Last Rate: 11 Units/kg/hr (04/15/25 0243) Pharmacy to Dose Heparin, Assessment and Plan: 1. CAD with NSTEMI - previous LAD stent in 2019 for anterior HI - HS troponins 14--49, EKGs with no [...] safety round/check completed Taken 04/16/2025 1648 by Chad Jay RN Safety Promotion/Fall Prevention: [...] in this encounter ED Notes * Ivania Pak RN - 04/14/2025 6:25 PM EDT Kallie Maria Nursing Report ED to Floor: Mental status: A&Ox4 Ambulatory status: Independent Oxygen Therapy: 3 LPM NC Cardiac Rhythm: NSR Admitted from: Home/ED Safety Concerns: None Precautions: None Social Issues: None ED Room #: 15 ED Nurse Phone Extension - [phone] or may call [phone]. HPI: Chief Complaint Patient presents with Chest [...] HEART CATH; Surgeon: Moiz Beaver MD; Location: [facility] CATH INVASIVE LOCATION; Service: Cardiovascular; Laterality: N/A; CARDIAC CATHETERIZATION 11/2021 NO INTERVENTION CORONARY STENT PLACEMENT 07/2020 X1 GALLBLADDER SURGERY HERNIA REPAIR ORIF ULNA/RADIUS FRACTURES Left 05/12/2022 Procedure: INTRA ARTICULAR DISTAL RADIUS OPEN REDUCTION INTERNAL FIXATION LEFT; Surgeon: Devante Matthews Jr., MD; Location: [facility] OR; Service: Orthopedics; Laterality: Left; SKIN CANCER [...] following orders were created for panel order Cisco Draw. Procedure Abnormality Status --------- ------ Green Top (Gel)[[id number]] Final result Lavender Top[[id number]] Final result Gold Top - SST[[id number]] Final result Stubbs Top[[id number]] Final result Light Blue Top[[id number]] Final result Please view results for these [...] Procedure Abnormality Status --------- ------ CBC Auto Differential[[id number]] Abnormal Final result Please view results for [...] (has no administration in time range) heparin 25081 units/250 mL (100 units/mL) in 0.45 % [...] Dg Coma Scale Score: 15 (04/14/25 1255) Dg Coma Scale: No data recorded CIWA: Restraint Type: Isolation Status: No active isolations * Tommie Miranda DO - 04/14/2025 12:52 PM EDT Images from the original note were not included. [facility] ENCOUNTER Pt Name: Kallie Maria Birthdate: 1965 Date of evaluation: 04/14/2025 Provider: Tommie Miranda DO CHIEF COMPLAINT Chief Complaint Patient presents with Chest Pain HPI Stated Reason for Visit: PT COMES INTO THE ED VIA [facility] EC-2 FROM HOME FOR THE C/O CHEST PAIN WITH NO RADIATION OF PAIN STARTING TWO HOURS AGO AFTER YARD WORK. PT GIVEN 1 NITRO ENGAGEMENT MANAGER. EMS STATES PT SELF ADMINISTERED 324MG OF ASA PRIOR TO THEIR ARRIVAL. HX OF HI.History Obtained From: EMS HISTORY OF PRESENT ILLNESS [...] HEART CATH; Surgeon: Moiz Beaver MD; Location: [facility] CATH INVASIVE LOCATION; Service: Cardiovascular; Laterality: N/A; CARDIAC CATHETERIZATION 11/2021 NO INTERVENTION CORONARY STENT PLACEMENT 07/2020 X1 GALLBLADDER SURGERY HERNIA REPAIR ORIF ULNA/RADIUS FRACTURES Left 05/12/2022 Procedure: INTRA ARTICULAR DISTAL RADIUS OPEN REDUCTION INTERNAL FIXATION LEFT; Surgeon: Devante Matthews Jr., MD; Location: [facility] OR; Service: Orthopedics; Laterality: Left; SKIN CANCER EXCISION on stomach CURRENT MEDICATIONS Current Facility-Administered Medications: aspirin chewable tablet 324 mg, 324 mg, Oral, Once, Tommie Miranda DO heparin (porcine) injection 4,000 Units, 4,000 Units, Intravenous, Once, Tommie Miranda [place] heparin 33363 units/250 mL (100 units/mL) in 0.45 % NaCl infusion, 12 Units/kg/hr, Intravenous, Titrated, Tommie Miranda DO Pharmacy to Dose Heparin, , Not Applicable, Continuous PRN, Tommie Miranda DO sodium chloride 0.9 % flush 10 mL, 10 mL, Intravenous, PRN, Tommie Miranda DO Current Outpatient Medications: albuterol sulfate HFA 108 [...] this chart in the absence of a black off worker. ECG 12 Lead Chest Pain Final Result [...] By: EDMD Confirmed By: TOMMIE MIRANDA MD ECG 12 [...] ([id number]) on 04/14/2025 12:56:47 PM Referred By: ED Confirmed By: TOMMIE MIRANDA MD Telemetry Scan Final Result RADIOLOGY: [x] Radiologist's Report Reviewed: CT Angiogram Chest Pulmonary Embolism Final Result Impression: No evidence of pulmonary embolus. Electronically Signed: Gurwinder Kimball MD 04/14/2025 4:56 PM EDT Workstation ID: [id number] XR Chest 1 View Final Result Impression: No acute cardiopulmonary findings. Electronically Signed: Ignacio Fiore MD 04/14/2025 1:43 PM EDT Workstation ID: [id number] I ordered and independently reviewed the above [...] [address] Angiogram Chest Pulmonary Embolism Cisco Draw High Sensitivity Troponin T Comprehensive Metabolic Panel Lipase BNP CBC Auto Differential High Sensitivity Troponin T 1Hr Heparin Anti-Xa Protime-INR aPTT NPO Diet NPO Type: Strict NPO Undress & Gown Continuous Pulse Oximetry Notify Provider Platelet Count Less Than 14471 Stop Infusion & Notify Provider if Bleeding [...] admitted and diagnosed with acute anterolateral wall HI, catheterization and received a drug-eluting stentto the [...] (has no administration in time range) heparin 63610 units/250 mL (100 units/mL) in 0.45 % NaCl infusion (has no administration in time range) Pharmacy to Dose Heparin (has no administration in time range) iopamidol (ISOVUE-370) 76 % injection 100 mL (85 mL Intravenous Given 04/14/25 1608) ED Course as of 04/14/25 1720 Sat Apr 14, 2025 1720 HEART Pathway for [facility] on 04/14/2025 All calculations should be rechecked [...] [AP] ED Course User Index [AP] Tommie Miradna, DO This a very pleasant 59-year-old female [...] adult Family Caregiver Names Alfredo Bullard (son) [phone] Quality of Family Relationships unable to assess [...] to home Patient/Family Anticipated Services at Transition housing case managermanager life insurance Anticipated family or friend will provide Discharge [...] PCP is Dr Nita Chanel. She has [employer] insurance which has Rx coverage. She uses [employer]. She states prescriptions are affordable. She denies [...] Reason for Consult discharge planning Preferred Language Maltese General Information Comments PCP Dr Nita Chanel Contact Information Permission Granted to Share Info With housing case managersales engagement manager Information Obtained for housing case managersales engagement manager Information Comments Alfredo Bullard (son) [phone] or Onel Maria (brother) [phone] Functional Status Row Name 04/16/25 1003 Functional [...] percutaneous anterior wall puncture technique. A 6 Nepalese arterial sheath was placed in the right femoral artery using a modified Seldinger technique. Selective coronary arteriography was performed using the Margarette technique with a 6 Nepalese 4 curved Margarette right catheter and a 6 Nepalese 4 curved Margarette left catheter. Nonionic contrast [...] - 0.70 IU/ml 04/16/2025 3:25 PM EDT [facility] Blood Venipuncture / Unknown 04/16/2025 12:55 PM EDT 04/16/2025 1:54 PM EDT Raudel Castellanos PharmD LAB BLOOD ORDERABLES Fin al Result [facility]
[address] [place] [address], * Heparin Anti-Xa (04/16/2025 4:06 AM EDT) Heparin Anti-Xa (UFH) 0.58 0.30 - 0.70 IU/ml 04/16/2025 5:22 AM EDT [facility] Blood Venipuncture / Unknown 04/16/2025 4:06 AM EDT 04/16/2025 4:54 AM EDT Gonzalez Kuhn PharmD LAB BLOOD ORDERABLES Final Result [facility]
[address] [place] [address], * Heparin Anti-Xa (04/15/2025 3:46 PM EDT) [facility] Heparin Anti-Xa (UFH) 0.48 0.30 - 0.70 IU/ml 04/15/2025 4:35 PM EDT [facility] Blood Venipuncture / Unknown 04/15/2025 3:46 PM EDT 04/15/2025 4:15 PM EDT Karis Corrales [facility] LAB BLOOD ORDERABLES Final Result [facility]
[address] [place] [address], * ECHO COMPLETE W/ DOPPLER AND COLOR FLOW (04/15/2025 3:03 PM EDT) [facility] EF(MOD-bp) 53.4 % EF_3D-VOL 58.0 [...] * Heparin Anti-Xa (04/15/2025 8:20 AM EDT) Heparin Anti-Xa (UFH) 0.47 0.30 - 0.70 IU/ml 04/15/2025 10:07 AM EDT [facility] Blood Venipuncture / Unknown 04/15/2025 8:20 AM EDT 04/15/2025 9:39 AM EDT Raudel Castellanos PharmD LAB BLOOD ORDERABLES Fin al Result [facility]
[address] [place] [address], * (ABNORMAL) CBC Auto Differential (04/15/2025 1:17 AM EDT) WBC 8.00 3.40 - 10.80 10*3/mm3 04/15/2025 1:45 AM EDT [facility] RBC 4.80 3.77 - 5.28 10*6/mm3 04/15/2025 1:45 AM EDT [facility] Hemoglobin 14.0 12.0 - 15.9 g/dL 04/15/2025 1:45 AM EDT [facility] Hematocrit 41.8 34.0 - 46.6 % 04/15/2025 1:45 AM EDT [facility] MCV 87.1 79.0 - 97.0 fL 04/15/2025 1:45 AM EDT [facility] MCH 29.2 26.6 - 33.0 pg 04/15/2025 1:45 AM EDT [facility] MCHC 33.5 31.5 - 35.7 g/dL 04/15/2025 1:45 AM EDT [facility] RDW 11.7(L) 12.3 - 15.4 % 04/15/2025 1:45 AM EDT [facility] RDW-SD 37.7 37.0 - 54.0 fl 04/15/2025 1:45 AM EDT [facility] MPV 9.3 6.0 - 12.0 fL 04/15/2025 1:[facility] Platelets 222 140 - 450 10*3/mm3 04/15/2025 1:45 AM EDT [facility] Neutrophil % 48.8 42.7 - 76.0 % 04/15/2025 1:45 [facility] Lymphocyte % 38.8 19.6 - 45.3 % 04/15/2025 1:45 AM EDT [facility] Monocyte % 9.1 5.0 - 12.0 % 04/15/2025 1:45 AM EDT [facility] Eosinophil % 2.0 0.3 - 6.2 % 04/15/2025 1:45 AM EDT [facility] Basophil % 0.9 0.0 - 1.5 % 04/15/2025 1:45 AM EDT [facility] Immature Grans % 0.4 0.0 - 0.5 % 04/15/2025 1:45 AM EDT [facility] Neutrophils, Absolute 3.91 1.70 - 7.00 10*3/mm3 04/15/2025 1:45 AM EDT [facility] Lymphocytes, Absolute 3.10 0.70 - 3.10 10*3/mm3 04/15/2025 1:45 AM EDT [facility] Monocytes, Absolute 0.73 0.10 - 0.90 10*3/mm3 04/15/2025 1:45 AM EDT [facility] Eosinophils, Absolute 0.16 0.00 - 0.40 10*3/mm3 04/15/2025 1:45 AM EDT [facility] Basophils, Absolute 0.07 0.00 - 0.20 10*3/mm3 04/15/2025 1:45 AM EDT [facility] Immature Grans, Absolute 0.03 0.00 - 0.05 10*3/mm3 04/15/2025 1:45 AM EDT [facility] nRBC 0.0 0.0 - 0.2 /100 WBC 04/15/2025 1:45 AM EDT [facility] Blood Venipuncture / Unknown 04/15/2025 1:17 AM EDT 04/15/2025 1:42 AM EDT Collin Persaud [employer] LAB BLOOD ORDERABLES Final R esult Performing Organization Address City/[facility]/ZIP Co de Phone Number [facility]
[address] [place] [address], * Heparin Anti-Xa (04/15/2025 1:17 AM EDT) Heparin Anti-Xa (UFH) 0.60 0.30 - 0.70 IU/ml 04/15/2025 1:59 AM EDT [facility] Blood Venipuncture / Unknown 04/15/2025 1:17 AM EDT 04/15/2025 1:42 AM EDT Bruce OdonnellD LAB BLOOD ORDERABLES Final Re sult [facility]
[address] [place] [address], * TSH (04/15/2025 1:17 AM EDT) [facility] TSH 1.500 0.270 - 4.200 uIU/mL 04/15/2025 2:06 AM EDT [facility] Blood Venipuncture / Unknown 04/15/2025 1:17 AM EDT 04/15/2025 1:30 AM EDT Collin A Hung [employer] LAB BLOOD ORDERABLES Final R esult [facility]
[address] [place] [address], * Magnesium (04/15/2025 1:17 AM EDT) [facility] Magnesium 2.0 1.6 - 2.6 mg/dL 04/15/2025 2:06 AM EDT [facility] Blood Venipuncture / Unknown 04/15/2025 1:17 AM EDT 04/15/2025 1:30 AM EDT [facility] [employer] LAB BLOOD ORDERABLES Final R esult [facility]
[address] [place] [address], * (ABNORMAL) Lipid Panel (04/15/2025 1:17 AM EDT) [facility] Total Cholesterol 229(H) 0 - 200 mg/dL 04/15/2025 2:06 AM EDT [facility] Triglycerides 65 0 - 150 mg/dL 04/15/2025 2:06 AM EDT [facility] HDL Cholesterol 68(H) 40 - 60 mg/dL 04/15/2025 2:06 AM EDT [facility] LDL Cholesterol 150(H) 0 - 100 mg/dL 04/15/2025 2:06 AM EDT [facility] VLDL Cholesterol 11 5 - 40 mg/dL 04/15/2025 2:06 AM EDT [facility] LDL/HDL Ratio 2.18 04/15/2025 2:06 AM EDT [facility] Blood Venipuncture / Unknown 04/15/2025 1:17 AM EDT 04/15/2025 1:30 AM EDT Narrative [facility] - 04/15/2025 2:06 AM EDT Cholesterol [...] APRN LAB BLOOD ORDERABLES Final R esult [facility]
[address] [place] [address], * Hemoglobin A1c (04/15/2025 1:17 AM EDT) Hemoglobin A1C 5.23 4.80 - 5.60 % 04/15/2025 1:56 AM EDT [facility] Blood Venipuncture / Unknown 04/15/2025 1:17 AM EDT 04/15/2025 1:30 AM EDT Narrative [facility] - 04/15/2025 1:56 AM EDT Hemoglobin A1C Ranges: Increased Risk for Diabetes 5.7% to 6.4% Diabetes >= 6.5% Diabetic Goal < 7.0% Collin Williams Persaud B[employer]QUETTE MAKER LAB BLOOD ORDERABLES Final R esult [facility]
[address] [place] [address], * Comprehensive Metabolic Panel (04/15/2025 1:17 AM EDT) Glucose 89 65 - 99 mg/dL 04/15/2025 2:06 AM EDT [facility] BUN 12.4 6.0 - 20.0 mg/dL 04/15/2025 2:06 AM EDT [facility] Creatinine 0.72 0.57 - 1.00 mg/dL 04/15/2025 2:06 AM EDT [facility] Sodium 139 136 - 145 mmol/L 04/15/2025 2:06 AM EDT [facility] Potassium 3.9 3.5 - 5.2 mmol/L 04/15/2025 2:06 AM EDT [facility] Chloride 102 98 - 107 mmol/L 04/15/2025 2:06 AM EDT [facility] CO2 28.5 22.0 - 29.0 mmol/L 04/15/2025 2:06 AM EDT [facility] Calcium 9.0 8.6 - 10.5 mg/dL 04/15/2025 2:06 AM EDT [facility] Total Protein 6.5 6.0 - 8.5 g/dL 04/15/2025 2:06 AM EDT [facility] Albumin 3.9 3.5 - 5.2 g/dL 04/15/2025 2:06 AM EDT [facility] ALT (SGPT) 18 1 - 33 U/L 04/15/2025 2:06 AM EDT [facility] AST (SGOT) 27 1 - 32 U/L 04/15/2025 2:06 AM EDT [facility] Alkaline Phosphatase 80 39 - 117 U/L 04/15/2025 2:06 AM EDT [facility] Total Bilirubin 0.7 0.0 - 1.2 mg/dL 04/15/2025 2:06 AM EDT [facility] Globulin 2.6 gm/dL 04/15/2025 2:06 AM EDT [facility] Comment:Calculated Result A/G Ratio 1.5 g/dL 04/15/2025 2:06 AM EDT [facility] BUN/Creatinine Ratio 17.2 7.0 - 25.0 04/15/2025 2:06 AM EDT [facility] Anion Gap 8.5 5.0 - 15.0 mmol/L 04/15/2025 2:06 AM EDT [facility] eGFR 97.7 >60.0 mL/min/1.7 3 04/15/2025 2:06 AM EDT [facility] Blood Venipuncture / Unknown 04/15/2025 1:17 AM EDT 04/15/2025 1:30 AM EDT [facility] - 04/15/2025 2:06 AM EDT [...] race as a factor us Collin Persaud B[employer]QUETTE MAKER LAB BLOOD ORDERABLES Final R esult [facility]
[address] [place] [address], * (ABNORMAL) aPTT (04/14/2025 6:24 PM EDT) [facility] PTT 26.5(L) 60.0 - 90.0 seconds 04/14/2025 7:01 PM EDT [facility] Blood Venipuncture / Unknown 04/14/2025 6:24 PM EDT 04/14/2025 6:40 PM EDT Narrative [facility] - 04/14/2025 7:01 PM EDT PTT = The equivalent PTT values for the therapeutic range of heparin levels at 0.3 to 0.5 U/ml are 60 to 70 seconds. us Tommie Miranda LAB BLOOD ORDERABLES Fin al Result Performing Organization Address [facility]/ZIP Co de Phone Number [facility]
[address] [place] [address], * Protime-INR (04/14/2025 6:24 PM EDT) [facility] Protime 13.5 12.2 - 15.3 Seconds 04/14/2025 7:01 PM EDT [facility] INR 0.97 0.89 - 1.12 04/14/2025 7:01 PM EDT [facility] Blood Venipuncture / Unknown 04/14/2025 6:24 PM EDT 04/14/2025 6:40 PM EDT [facility] Fin al Result [facility]
[address] [place] [address], [place] [phone] * (ABNORMAL) Heparin Anti-Xa (04/14/2025 6:24 PM EDT) [facility] Heparin Anti-Xa (UFH) 0.10(L) 0.30 - 0.70 IU/ml 04/14/2025 7:02 PM EDT [facility] Blood Venipuncture / Unknown 04/14/2025 6:24 PM EDT 04/14/2025 6:40 PM EDT us Tommie Lopez Alex JENKINS LAB BLOOD ORDERABLES Fin al Result [facility]
[address] [place] [address], * CT Angiogram Chest Pulmonary Embolism (04/14/2025 4:08 PM EDT) Anatomical Region Laterality Modality Chest N/A Computed Tomogra phy 04/14/2025 4:46 PM EDT Impressions 04/14/2025 4:56 PM EDT Impression: No evidence of pulmonary embolus. Electronically Signed: Gurwinder Kimball MD 04/14/2025 4:56 PM EDT Workstation ID: [id number] Narrative 04/14/2025 4:[address] ANGIOGRAM [...] MD 04/14/2025 4:56 PM EDT Workstation ID: [id number] Tommie Miranda DO IMG CT ORDERABLES Final Result * (ABNORMAL) High Sensitivity Troponin T 1Hr (04/14/2025 2:34 PM EDT) HS Troponin T 49(H) <14 ng/L 04/14/2025 3:29 PM EDT [facility] Troponin T Numeric Delta 35(HH) Abnormal if >/=3 ng/L 04/14/2025 3:29 PM EDT [facility] Troponin T % Delta 250(HH) Abnormal if >/= 20% 04/14/2025 3:29 PM EDT [facility] Blood Venipuncture / Unknown 04/14/2025 2:34 PM EDT 04/14/2025 2:49 PM EDT Narrative [facility] - 04/14/2025 3:29 PM EDT High [...] DO LAB BLOOD ORDERABLES Fin al Result [facility]
[address] [place] [address], * ECG 12 Lead Chest Pain (04/14/2025 2:28 PM EDT) QT Interval 406 ms BH ECG QTC Interval 412 ms BH ECG 04/14/2025 2:28 PM EDT 04/14/2025 2:54 PM EDT Narrative ECG - 04/14/2025 2:54 PM EDT Test [...] ([id number]) on 04/14/2025 2:54:50 PM Referred By: ED Confirmed By: TOMMIE MIRANDA MD Procedure Note [...] ([id number]) on 04/14/2025 2:54:50 PM Referred By: ED Confirmed By: TOMMIE MIRANDA MD us Tommei Miranda DO ECG ORDERABLES Final Re sult ECG * XR Chest 1 View (04/14/2025 1:40 PM EDT) Anatomical Region Laterality Modality Body N/A Radiographic Kenia ging 04/14/2025 1:42 PM EDT Impressions 04/14/2025 1:43 PM EDT Impression: No acute cardiopulmonary findings. Electronically Signed: Ignacio Fiore MD 04/14/2025 1:43 PM EDT Workstation ID: [id number] Narrative 04/14/2025 1:43 PM EDT XR CHEST [...] MD 04/14/2025 1:43 PM EDT Workstation ID: [id number] us Tommie Miranda DO IMG DIAGNOSTIC IMAGING O RDERABLES Final Result * (ABNORMAL) CBC Auto Differential (04/14/2025 1:03 PM EDT) WBC 6.19 3.40 - 10.80 10*3/mm3 04/14/2025 1:13 PM EDT [facility] RBC 5.01 3.77 - 5.28 10*6/mm3 04/14/2025 1:13 PM EDT [facility] Hemoglobin 14.6 12.0 - 15.9 g/dL 04/14/2025 1:13 PM EDT [facility] Hematocrit 43.2 34.0 - 46.6 % 04/14/2025 1:13 PM EDT [facility] MCV 86.2 79.0 - 97.0 fL 04/14/2025 1:13 PM EDT [facility] MCH 29.1 26.6 - 33.0 pg 04/14/2025 1:13 PM EDT [facility] MCHC 33.8 31.5 - 35.7 g/dL 04/14/2025 1:13 PM EDT [facility] RDW 11.7(L) 12.3 - 15.4 % 04/14/2025 1:13 PM EDT [facility] RDW-SD 36.7(L) 37.0 - 54.0 fl 04/14/2025 1:13 PM EDT [facility] MPV 9.3 6.0 - 12.0 fL 04/14/2025 1:13 PM EDT [facility] Platelets 225 140 - 450 10*3/mm3 04/14/2025 1:13 PM EDT [facility] Neutrophil % 53.3 42.7 - 76.0 % 04/14/2025 1:13 PM EDT [facility] Lymphocyte % 35.5 19.6 - 45.3 % 04/14/2025 1:13 PM EDT [facility] Monocyte % 7.3 5.0 - 12.0 % 04/14/2025 1:13 PM EDT [facility] Eosinophil % 2.7 0.3 - 6.2 % 04/14/2025 1:13 PM EDT [facility] Basophil % 1.0 0.0 - 1.5 % 04/14[facility]2025 [facility] Immature Grans % 0.2 0.0 - 0.5 % 04/14/2025 1:13 [facility] Neutrophils, Absolute 3.30 1.70 - 7.00 10*3/mm3 04/14/2025 1:13 [facility] Lymphocytes, Absolute 2.20 0.70 - 3.10 10*3/mm3 04/14/2025 1:13 PM EDT [facility] Monocytes, Absolute 0.45 0.10 - 0.90 10*3/mm3 04/14/2025 1:13 PM EDT [facility] Eosinophils, Absolute 0.17 0.00 - 0.40 10*3/mm3 04/14/2025 1:13 PM EDT [facility] Basophils, Absolute 0.06 0.00 - 0.20 10*3/mm3 04/14/2025 1:13 PM EDT [facility] Immature Grans, Absolute 0.01 0.00 - 0.05 10*3/mm3 04/14/2025 1:13 PM EDT [facility] nRBC 0.0 0.0 - 0.2 /100 WBC 04/14/2025 1:13 PM EDT [facility] Blood Venipuncture / Unknown 04/14/2025 1:03 PM EDT 04/14/2025 1:05 PM EDT Tommie Lopez Alex LAB BLOOD ORDERABLES Fin al Result Performing Organization Address City/[facility]/ZIP Co de Phone Number [facility]
[address] [place] [address], * Light Blue Top (04/14/2025 1:03 PM EDT) Extra Tube Hold for add-ons. 04/14/2025 1:16 PM EDT [facility] Comment:Auto resulted Blood Venipuncture / Unknown 04/14/2025 1:03 PM EDT 04/14/2025 1:05 PM EDT Tommie Lopez Alex LAB BLOOD ORDER ONLY Fin al Result Performing Organization Address [facility] Co de Phone Number [facility]
[address] [place] [address], * Stubbs Top (04/14/2025 1:03 PM EDT) Extra Tube Hold for add-ons. 04/14/2025 1:16 PM EDT [facility] Comment:Auto resulted. Blood Venipuncture / Unknown 04/14/2025 1:03 PM EDT 04/14/2025 1:05 PM EDT Tommie Lopez Alex DO LAB BLOOD ORDER ONLY Fin al Result Performing Organization Address City/[facility]/ZIP Co de Phone Number [facility]
[address] [place] [address], * Gold Top - SST (04/14/2025 1:03 PM EDT) Extra Tube Hold for add-ons. 04/14/2025 1:16 PM EDT [facility] Comment:Auto resulted. Blood Venipuncture / Unknown 04/14/2025 1:03 PM EDT 04/14/2025 1:05 PM EDT Tommie John Miranda DO LAB BLOOD ORDER ONLY Fin al Result [facility]
[address] [place] [address], * Lavender Top (04/14/2025 1:03 PM EDT) Extra Tube hold for add-on 04/14/2025 1:16 PM EDT [facility] Comment:Auto resulted Blood Venipuncture / Unknown 04/14/2025 1:03 PM EDT 04/14/2025 1:05 PM EDT Tommiejaya Miranda DO LAB BLOOD ORDER ONLY Fin al Result [facility]
[address] [place] [address], * Green Top (Gel) (04/14/2025 1:03 PM EDT) Extra Tube Hold for add-ons. 04/14/2025 1:16 PM EDT [facility] Comment:Auto resulted. Blood Venipuncture / Unknown 04/14/2025 1:03 PM EDT 04/14/2025 1:05 PM EDT us Tommie Peter Pacitti DO LAB BLOOD ORDER ONLY Fin al Result Performing Organization Address [facility] de Phone Number [facility]
[address] [place] [address], * BNP (04/14/2025 1:03 PM EDT) proBNP 138.0 0.0 - 900.0 pg/mL 04/14/2025 1:33 PM EDT [facility] Blood Venipuncture / Unknown 04/14/2025 1:03 PM EDT 04/14/2025 1:05 PM EDT Narrative [facility] - 04/14/2025 1:33 PM EDT This [...] >1800 Stubbs 300-1800 Negative <300 Tommie Miranda DO LAB BLOOD ORDERABLES Fin al Result Performing Organization Address [facility] de Phone Number [facility]
[address] [place] [address], * Lipase (04/14/2025 1:03 PM EDT) Lipase 21 13 - 60 U/L 04/14/2025 1:33 PM EDT [facility] Blood Venipuncture / Unknown 04/14/2025 1:03 PM EDT 04/14/2025 1:05 PM EDT Tommie Miranda DO LAB BLOOD ORDERABLES Fin al Result Performing Organization Address [facility]/State/ZIP Co de Phone Number [facility]
[address] [place] [address], * Comprehensive Metabolic Panel (04/14/2025 1:03 PM EDT) Glucose 98 65 - 99 mg/dL 04/14/2025 1:35 PM EDT [facility] BUN 10.4 6.0 - 20.0 mg/dL 04/14/2025 1:35 PM EDT [facility] Creatinine 0.71 0.57 - 1.00 mg/dL 04/14/2025 1:35 PM EDT [facility] Sodium 139 136 - 145 mmol/L 04/14/2025 1:35 PM EDT [facility] Potassium 4.1 3.5 - 5.2 mmol/L 04/14/2025 1:35 PM EDT [facility] Comment:Specimen hemolyzed. Result may be falsely elevated. Chloride 102 98 - 107 mmol/L 04/14/2025 1:35 PM EDT [facility] CO2 25.9 22.0 - 29.0 mmol/L 04/14/2025 1:35 PM EDT [facility] Calcium 9.1 8.6 - 10.5 mg/dL 04/14/2025 1:35 PM EDT [facility] Total Protein 6.9 6.0 - 8.5 g/dL 04/14/2025 1:35 PM EDT [facility] Albumin 4.2 3.5 - 5.2 g/dL 04/14/2025 1:35 PM EDT [facility] ALT (SGPT) 21 1 - 33 U/L 04/14/2025 1:35 PM EDT [facility] AST (SGOT) 25 1 - 32 U/L 04/14/2025 1:35 PM EDT [facility] Alkaline Phosphatase 89 39 - 117 U/L 04/14/2025 1:35 PM EDT [facility] Total Bilirubin 0.8 0.0 - 1.2 mg/dL 04/14/2025 1:35 PM EDT [facility] Globulin 2.7 gm/dL 04/14/2025 1:35 PM EDT [facility] Comment:Calculated Result A/G Ratio 1.6 g/dL 04/14/2025 1:35 PM EDT [facility] BUN/Creatinine Ratio 14.6 7.0 - 25.0 04/14/2025 1:35 PM EDT [facility] Anion Gap 11.1 5.0 - 15.0 mmol/L 04/14/2025 1:35 PM EDT [facility] eGFR 99.3 >60.0 mL/min/1.7 3 04/14/2025 1:35 PM EDT [facility] Blood Venipuncture / Unknown 04/14/2025 1:03 PM EDT 04/14/2025 1:05 PM EDT Narrative [facility] - 04/14/2025 1:35 PM EDT GFR [...] not include race as a factor us Tommie Miranda DO LAB BLOOD ORDERABLES Fin al Result [facility]
[address] [place] [address], * (ABNORMAL) High Sensitivity Troponin T (04/14/2025 1:03 PM EDT) HS Troponin T 14(H) <14 ng/L 04/14/2025 1:33 PM EDT [facility] Blood Venipuncture / Unknown 04/14/2025 1:03 PM EDT 04/14/2025 1:05 PM EDT Narrative [facility] - 04/14/2025 1:33 PM EDT High [...] injury due to an underlying chronic condition. us Tommie Miranda DO LAB BLOOD ORDERABLES Fin al Result [facility]
[address] [place] [address], * ECG 12 Lead Chest Pain (04/14/2025 12:54 PM EDT) QT Interval 398 ms ECG QTC Interval 426 ms ECG 04/14/2025 [...] Miranda DO ECG ORDERABLES Final Re sult ECG * Telemetry Scan (04/14/2025 12:51 PM EDT) [facility] Onbase ECG ORDERABLES Final Result documented in this encounter Visit Diagnoses Not on filedocumented in this encounter Admitting Diagnoses Diagnosis NSTEMI [...] movement after 12 hours. Hold for diarrhea fentaNYL citrate (PF) (SUBLIMAZE) injection Code / Trauma / Sedation Medication, Starting on Wed04/16/25 at 1432 Given 04/16/2025 2:32 PM EDT 25 mcg heparin 17387 units/250 mL (100 units/mL) in 0.45 % [...] mL/h r iopamidol (ISOVUE-370) 76 % injection Code / Trauma / Sedation Medication, Starting on Wed04/16/25 at 1456 Given 04/16/2025 2:56 PM EDT 50 mL lidocaine PF 1% (XYLOCAINE) injection Code / Trauma / Sedation Medication, Starting on Wed04/16/25 at 1434 Given 04/16/2025 2:45 PM EDT 5 mL Groin Right Given 04/16/2025 2:35 PM EDT 5 mL Wr ist Right midazolam (VERSED) injection Code / Trauma / Sedation Medication, Starting on Wed04/16/25 at 1432 Given 04/16/2025 2:32 PM EDT 1 mg morphine injection 1 mg 1 mg, Intravenous, [...] RN) 0824 (Given - Provider: Chad Jay RN)142 (MAR Hold - Provider: Automatic Transfer Provider [...] 2107 (Not Given - Provider: Collin Theodore, PLATE GLASS INSTALLER - Reason: Patient/family refused) 0837 (Not Given - Provider: Sierra Givens, [employer] SUPERVISOR - Reason: Patient/family refused)2129 (Canceled Entry - Provider: Collin Theodore, PLATE GLASS INSTALLER - Comment: pt refuses) 0845 (Not Given - Provider: Yessi Harris, PLATE GLASS INSTALLER - Reason: Patient/family refused)142 (MAR Hold - Provider: Automatic Transfer Provider - Reason: Unreviewed Transfer Orders)2037 ([facility] Unhold - Provider: Automatic Discharge Provider) heparin (porcine) injection 4,000 Units (COMPLETED) 4,000 Units, Intravenous, Once, On 04/14/25 at 1830, For 1 dose, Maximum Dose 4,000 units, Indications: Cardiac or Other Not VTE 1832 (Given - Provider: Ivania Pak, ELIZABETH) iopamidol (ISOVUE-370) 76 % injection 100 mL (COMPLETED) 100 mL, Intravenous, Once in Imaging, On 04/14/25 at 1624, For 1 dose 1608 (Given - Provider: Wendi Machado) Pharmacy Consult - MTM Daily, First dose on 04/15/25 at 0900, Until Discontinued 0900 (Due) 0811 (Canceled Entry - Provider: Chad Jay, ELIZABETH)142 (MAR Hold - Provider: Automatic Transfer Provider - Reason: Unreviewed Transfer Orders)2037 ([facility] Unhold - Provider: Automatic Discharge Provider) sodium chloride 0.9 % flush 10 mL 10 mL, Intravenous, Every 12 Hours Scheduled, First dose on 04/14/25 at 2130 0035 (Canceled Entry - Provider: Evonne Echevarria RN)1711 (Canceled Entry - Provider: Delilah Benavides, ELIZABETH)212 (Given - Provider: Corrine Oshea, ELIZABETH) 0824 (Given - Provider: Chad Jay, ELIZABETH)142 (MAR Hold - Provider: Automatic Transfer Provider - Reason: Unreviewed Transfer Orders)2037 (MAR Unhold - Provider: Automatic Discharge Provider) Continuous Medication Order 04/14/2025 04/15/2025 04/16/2025 heparin 16769 units/250 mL (100 units/mL) in 0.45 % NaCl infusion 10 Units/kg/hr 82.6 kg (8.26 mL/hr), Intravenous, Titrated, Starting on 04/14/25 at 1830, Pharmacy dosing - Cardiac or Other NOT VTE - Boluses (with initial bolus), Indications: Cardiac or other NOT VTE 1832 (New Bag - Provider: Ivania Pak, RN)1834 (Currently Infusing - Provider: Ivania Pak RN) 0243 (Rate Change (DUAL SIGN) - Provider: Evonne Echevarria RN)1847 (New Bag - Provider: Delilah Benavides RN) 0601 (Rate Change (DUAL SIGN) - Provider: Corrine Oshea, ELIZABETH)0716 (Handoff - Provider: Chad Jay, RN)0823 (Currently [...] Pain Score of 7-10, CPOT 5-8 142 ([facility] Hold - Pro vider: Automatic Transfer Provider - Reason: Unreviewed Transfer Orders)2037 ([facility] Unhold - Provider: Automatic Discharge [...] Pain Score of 7-10, CPOT 5-8 1424 ([facility] Hold - Pro vider: Automatic Transfer Provider - Reason: Unreviewed Transfer Orders)2037 ([facility] Unhold - Provider: Automatic Discharge Provider) albuterol sulfate HFA (PROVENTIL HFA;VENTOLIN HFA;PROAIR HFA) inhaler 2 puff 2 puff, Inhalation, Every 6 Hours PRN, Wheezing, Shortness of Air, Starting on 04/14/25 at 2042, Include Respiratory Treatment Education (SP) Shake well. 1424 ([facility] Hold - Pro vider: Automatic Transfer Provider - Reason: Unreviewed Transfer Orders)2037 ([facility] Unhold - Provider: Automatic Discharge Provider) ALPRAZolam (XANAX) tablet 0.25 mg 0.25 mg, Oral, 3 Times Daily PRN, Anxiety, Starting on Wed04/16/25 at 1501, For 1 day, (MUSTAPHA) Caution: [...] glycol is ineffective, Starting on 04/14/25 at 3, Use if no bowel movement after 12 hours. Swallow whole. Do not crush, split, or chew tablet. 1423 ([facility] Hold - Pro vider: Automatic Transfer Provider - Reason: Unreviewed Transfer Orders)2037 ([facility] Unhold - Provider: Automatic Discharge Provider) bisacodyl (DULCOLAX) suppository 10 mg(Linked Group 2) 10 mg, Rectal, Daily PRN, Constipation, Use if bisacodyl oral is ineffective, Starting on 04/14/25 at 2043, Use if no bowel movement after 12 hours. Hold for diarrhea 1424 ([facility] Hold - Pro vider: Automatic Transfer Provider - Reason: Unreviewed Transfer Orders)2037 ([facility] Unhold - Provider: Automatic Discharge Provider) Calcium Replacement - Follow Nurse / BPA Driven Protocol Open Order & Select S Electrolyte Replacement Protocol Algorithm to View Details 1424 ([facility] Hold - Pro vider: Automatic Transfer Provider - Reason: Unreviewed Transfer Orders)2037 ([facility] Unhold - Provider: Automatic Discharge [...] 5 Minutes PRN, Chest Pain, Starting on 04/16/25 at 1501, Notify Provider if Pain Unrelieved After 3 Doses May administer up to 3 doses per episode. Hold if SBP less than 100. ondansetron (ZOFRAN) injection 4 mg(Linked Group 4) 4 mg, Intravenous, Every 6 Hours PRN, Nausea, Vomiting, Starting on 04/14/25 at 204, If BOTH ondansetron (ZOFRAN) and promethazine (PHENERGAN) are ordered use ondansetron first and THEN promethazine IF ondansetron is ineffective. 1424 ([facility] Hold - Pro vider: Automatic Transfer Provider - Reason: Unreviewed Transfer Orders)1553 ([facility] Unhold - Provider: Edin Rosen MD)1555 (Given - Provider: Deidra Omer RN) ondansetron ODT (ZOFRAN-ODT) disintegrating tablet 4 mg(Linked Group 4) 4 mg, Oral, Every 6 Hours PRN, Nausea, Vomiting, Starting on 04/14/25 at 2042, If BOTH ondansetron (ZOFRAN) and promethazine (PHENERGAN) are ordered use ondansetron first and THEN promethazine IF ondansetron is ineffective. Place on tongue and allow to dissolve. 1424 ([facility] Hold - Pro vider: Automatic Transfer Provider - Reason: Unreviewed Transfer Orders)1553 ([facility] Unhold - Provider: Edin Rsoen MD)1555 (Not Given: See Alt - Provider: Deidra Omer, ELIZABETH) Pharmacy to Dose Heparin Continuous PRN, Starting on 04/14/25 at 1701, Until Wed04/16/25 at 2037, Consult, Pharmacy to dose heparin, Indications: Cardiac or Other NOT VTE Phosphorus Replacement - Follow Nurse / BPA Driven Protocol Open Order & Select BHS Electrolyte Replacement Protocol Algorithm to View Details 1424 ([facility] Hold - Pro vider: Automatic Transfer Provider - Reason: Unreviewed Transfer Orders)2037 ([facility] Unhold - Provider: Automatic Discharge Provider) polyethylene glycol (MIRALAX) packet 17 g(Linked Group 2) 17 g, Oral, Daily PRN, Constipation, Use if senna-docusate is ineffective, Starting on 04/14/25 at 2042, Use if no bowel movement after 12 hours. Mix in 6-8 ounces of water. Use 4-8 ounces of water, tea, or juice for each 17 gram dose. 1424 ([facility] Hold - Pro vider: Automatic Transfer Provider - Reason: Unreviewed Transfer Orders)2037 ([facility] Unhold - Provider: Automatic Discharge [...] a bowel movement after 12 hours. 1424 ([facility] Hold - Pro vider: Automatic Transfer Provider - Reason: Unreviewed Transfer Orders)2037 ([facility] Unhold - Provider: Automatic Discharge Provider) sodium chloride 0.9 % flush 10 mL 10 mL, Intravenous, As Needed, Line Care, Starting on 04/14/25 at 1246 1424 ([facility] Hold - Pro vider: Automatic Transfer Provider - Reason: Unreviewed Transfer Orders)2037 ([facility] Unhold - Provider: Automatic Discharge Provider) sodium chloride 0.9 % flush 10 mL 10 mL, Intravenous, As Needed, Line Care, Starting on 04/14/25 at 2043 1424 ([facility] Hold - Pro vider: Automatic Transfer Provider - Reason: Unreviewed Transfer Orders)2037 ([facility] Unhold - Provider: Automatic Discharge [...] line with 40mL NS at 100mL/hr. 1424 ([facility] Hold - Pro vider: Automatic Transfer Provider - Reason: Unreviewed Transfer Orders)2037 ([facility] Unhold - Provider: Automatic Discharge Provider) Linked [...] ineffective. documented in this encounter Care Teams Elevator Tender Relationship Specialty Start Date End Date Nita Chanel DO [address] [place] [address] PCP - General Family Medicine 04/14/25 documented as of this encounter
[2025-04-19 18:21] VITALS: PULSE 96; RESP 17; O2SAT 97
[2025-04-19 18:22] VITALS: BP 179/91; PULSE 84; RESP 17; TEMP 36.9; O2SAT 97; BMI 31.2
--- NOTE | 2025-04-19 18:23 | ED_ITS ---
Discharge Plan Disposition Patient Disposition: Home, Self-Care Condition: Good Prescriptions Prescriptions: New ibuprofen 600 mg tablet 600 mg PO Q6H Qty: 60 0RF pantoprazole [Protonix] 40 mg tablet,delayed release (DR/EC) 40 mg PO DAILY 28 Days Qty: 28 0RF No Action nitroglycerin 0.4 mg tablet, sublingual 0.4 mg SUBLINGUAL ONCE PRN (Reason: Chest Pain) aspirin [Umu Low Dose Aspirin] 81 mg tablet,delayed release (DR/EC) 81 mg PO DAILY losartan-hydrochlorothiazide 50-12.5 mg tablet 1 tab PO DAILY Qty: 30 3RF metoprolol succinate 25 MG tablet extended release 24 hr 25 mg PO QDAY Referrals Follow up/Referrals: Nita Chanel DO [Primary Care Provider, Family Practice] - See instructions Activity Restrictions/Add. Instructions Additional Instructions/Restrictions: I recommend Tylenol 1000 mg alternating every 4 hours with ibuprofen for pain and swelling. I recommend warm moist compresses to keep your arm elevated. Should you have any increasing pain redness or new or worsening signs or symptoms follow-up with your PCP return to the ER as needed. Clinical Impressions Clinical Impression: Superficial thrombophlebitis after intravenous administration of drug Instructions Patient Instructions: DI for Skin Abscess Print Language Print Language: Kenyan Discharge ED Provider: Power Lancaster Adult HPI <ALICE Diaz - Last Filed: 04/19/25 19:15> General Chief complaint: Skin/Abscess/Foreign Body Stated complaint: congestion,and redness around iv site in left arm Time Seen by Provider: 04/19/25 18:23 History of Present Illness HPI narrative: Patient presents for evaluation of left arm redness and swelling. Patient was recently hospitalized for myocardial infarction. She did not get cath but had multiple IVs and blood draws. Patient noted that when she woke up this morning that she started having redness along with swelling proximally to the left antecubital fossa where her previous IV was. She denies any loss of motor or sensory fever chills hemoptysis hematochezia melena nausea vomit diarrhea. Related Data Home Medications ?Medication ?Instructions ?Recorded ?Confirmed aspirin 81 mg tablet,delayed 81 mg PO DAILY Blood thin ner 11/28/21 01/02/22 release (Umu Low Dose Aspirin) nitroglycerin 0.4 mg sublingual 0.4 mg sublingual ONCE PRN Chest 11/28/21 01/02/22 tablet Pain metoprolol succinate 25 mg 25 mg PO QDAY Hypertension 12/18/21 01/02/22 tablet,extended release 24 hr Previous Rx's ?Medication ?Instructions ?Recorded losartan 50 mg-hydrochlorothiazide 1 tab PO DAILY #30 tabs 01/02/22 12.5 mg tablet ibuprofen 600 mg tablet 600 mg PO Q6H #60 tabs 04/19 pantoprazole 40 mg tablet,delayed 40 mg PO DAILY 4 wee ks #28 tabs 04/19/25 release (Protonix) Allergies Allergy/AdvReac Type Severity Reaction Status Date / Time rosuvastatin (From Crestor) AdvReac Mild myalgia Verified 01/02/22 09:55 codeine AdvReac vomiting Verified 01/02/22 09:55 ketamine AdvReac Vomiting Verified 04/19/25 18:44 propofol AdvReac Vomiting Verified 04/19/25 18:44 [facility] <ALICE Diaz - Last Filed: 04/19/25 19:15> [facility] Disclaimer: The information contained in this section may have been updated after the patient was seen, as this information can be updated by other users. Social History Smoking Status: Never smoker alcohol intake: never substance use type: denies use current occupational status: employed Travel in the last 8 weeks?: Inside the [place] household members: none current occupational exposures/hazards: No caffeine: No Have you lived/traveled outside US in past 30 days?: No Contact w/someone who lives/traveled outside US past 30 days?: No Exposure to someone with infectious disease in past 14 days?: No Do you have a fever (greater than 100.4 F or 38 C)?: No Have you tested positive for COVID-19?: No Exposed to someone with COVID-19 in past 14 days?: No Do you have a sore throat?: No Do you have a cough?: No Do you have any weakness?: No Do you have any diarrhea?: No Are you experiencing any unusual bleeding?: No Do you have any muscle aches/pain?: No Do you have any abdominal pain?: No Are you experiencing loss of taste or smell?: No Other Medical History Have you received the Flu Vaccine for this season: No Have you received the Pneumonia Vaccine: No <ALICE Diaz - Last Filed: 04/19/25 19:15> ROS Obtained: Yes Systems reviewed as appropriate & no additional complaints except as documented Physical Exam <ALICE Diaz - Last Filed: 04/19/25 19:15> General General appearance: alert and in no apparent distress Respiratory Respiratory exam: Present normal lung sounds bilaterally Cardiovascular Cardiovascular exam: Present regular rate Neurological Exam Neurological exam: Present alert and oriented X3 Expanded Skin Exam Body image: 2 1. Ecchymosis from IV site 2. Area of redness and swelling Medical Decision Making <ALICE Diaz - Last Filed: 04/19/25 19:15> Medical Records Medical records reviewed: Yes I reviewed the patient's medical records. Screening: Per USPSTF and CDC recommendations, given the prevalence of disease in our region, it is our hospital?s policy to screen for HIV and viral Hepatitis for all patients aged 18 and over and those with ongoing risk factors. Nathan Inquiry Pt receiving controlled substance: No Vital Signs: 04/19/25 18:21 04/19/25 18:22 04/19/25 18:30 Temperature 98.4 F Temperature Source Oral Pulse Rate 96 H 65 Pulse Rate [Left] 84 Respiratory Rate 17 17 19 Blood Pressure 134/85 Blood Pressure [Right Arm] 179/91 H Blood Pressure Mean 101 Blood Pressure Mean [Right Arm] 120 Blood Pressure Source [Right Arm] Automatic Cuff Blood Pressure Position Blood Pressure Position [Right Arm] Sitting 02 Sat by Pulse Oximetry 97 97 96 Oxygen Delivery Method Room Air Room Air Room Air 04/19/25 18:45 04/19/25 19:27 Temperature 98.4 F Temperature Source Oral Pulse Rate 74 71 Pulse Rate [Left] Respiratory Rate 17 16 Blood Pressure 145/86 H Blood Pressure [Right Arm] Blood Pressure Mean Blood Pressure Mean [Right Arm] Blood Pressure Source [Right Arm] Blood Pressure Position Sitting Blood Pressure Position [Right Arm] 02 Sat by Pulse Oximetry 97 Oxygen Delivery Method Room Air Room Air Orders (Tests/Meds): ORDERS Category Date Time Status POCUS Point of Care (ER Only) Stat Exams 04/19/25 18:25 Completed Medical Decision Narrative: In summary patient is a 60-year-old female who presents to the emergency department for evaluation of redness and swelling proximal to her left antecubital fossa IV site. Patient is hemodynamically stable with a blood pressure 134/85 pulse 69 sinus rhythm on the bedside monitor breathing 19 times a minute satting at 96% on room air upon arrival, afebrile at 98.4. Physical exam is remarkable for redness and swelling in the midline proximal to the antecubital fossa suggestive of over the brachial vein. It is not particularly tender there is no induration borders are marked by myself with an ink pen. Differential diagnosis includes superficial thrombophlebitis versus cellulitis Cetera. Initial workup will be conducted with POCUS. Initial interventions include Tylenol and ibuprofen. Initial workup reviewed by me and POCUS shows superficial thrombophlebitis of the brachial vein. Given this patient is appropriate for discharge with supportive and symptomatic care including Tylenol and ibuprofen for pain and swelling warm compresses. Patient advised should she have any increasing new or worsening signs or symptoms follow-up with PCP return to the ER as needed. <Power Lancaster, - Last Filed: 04/20/25 03:33> Vital Signs: 04/19/25 18:21 04/19/25 18:22 04/19/25 18:30 Temperature 98.4 F Temperature Source Oral Pulse Rate 96 H 65 Pulse Rate [Left] 84 Respiratory Rate 17 17 19 Blood Pressure 134/85 Blood Pressure [Right Arm] 179/91 H Blood Pressure Mean 101 Blood Pressure Mean [Right Arm] 120 Blood Pressure Source [Right Arm] Automatic Cuff Blood Pressure Position Blood Pressure Position [Right Arm] Sitting 02 Sat by Pulse Oximetry 97 97 96 Oxygen Delivery Method Room Air Room Air Room Air 04/19/25 18:45 04/19/25 19:27 Temperature 98.4 F Temperature Source Oral Pulse Rate 74 71 Pulse Rate [Left] Respiratory Rate 17 16 Blood Pressure 145/86 H Blood Pressure [Right Arm] Blood Pressure Mean Blood Pressure Mean [Right Arm] Blood Pressure Source [Right Arm] Blood Pressure Position Sitting Blood Pressure Position [Right Arm] 02 Sat by Pulse Oximetry 97 Oxygen Delivery Method Room Air Room Air Orders (Tests/Meds): ORDERS Category Date Time Status POCUS Point of Care (ER Only) Stat Exams 04/19/25 18:25 Completed Medical Decision Narrative: In summary patient is a 60-year-old female who presents to the emergency department for evaluation of redness and swelling proximal to her left antecubital fossa IV site. Patient is hemodynamically stable with a blood pressure 134/85 pulse 69 sinus rhythm on the bedside monitor breathing 19 times a minute satting at 96% on room air upon arrival, afebrile at 98.4. Physical exam is remarkable for redness and swelling in the midline proximal to the antecubital fossa suggestive of over the brachial vein. It is not particularly tender there is no induration borders are marked by myself with an ink pen. Differential diagnosis includes superficial thrombophlebitis versus cellulitis Cetera. Initial workup will be conducted with POCUS. Initial interventions include Tylenol and ibuprofen. Initial workup reviewed by me and POCUS shows. Given this patient is appropriate for discharge with supportive and symptomatic care including Tylenol and ibuprofen for pain and swelling warm compresses. Patient advised should she have any increasing new or worsening signs or symptoms follow-up with PCP return to the ER as needed. Limited soft tissue ultrasound Indication: Concern for thrombophlebitis of the left upper extremity with erythema and ropey vasculature present Identified structures: Superficial vein over the left antecubital fossa Location: Left upper extremity Findings: Noncompressible superficial vein consistent with thrombus present in the superficial vein coursing from the antecubital fossa wrapping along the lateral aspect of the left upper extremity. Vein is patent near the forearm, as well as upwards towards the shoulder. Impression: Superficial thrombophlebitis Images were saved to permanent archive This study was technically adequate Soft tissue CPT codes Neck: 60930-50 Upper extremity: 90027?26 Axilla: 27169-37 Chest wall: 91305-19 Breast: 7664 1-2 6 (complete), 09876-40-[RT/LT] (Limited) Upper back: 92643-72 Abdominal wall: 90352-88 Pelvic wall: 43676-02 Lower extremity: 05060-56 Other soft tissue: 80455-89 This study was performed by me and I personally interpreted all images/videos. Based on my clinical judgment these images were [adequate/inadequate] and [did/did not] necessitate further imaging. I was consulted by the NELLY, and we discussed the complexity of problems being addressed. I approved the treatment and management plan for this patient's care in the emergency department, thus performing a substantive portion of the medical decision making. Power Lancaster DO On my independent evaluation of the patient, she tells me (and brings discharge paperwork discussing) that she was recently admitted at [facility], operated by [facility] in [place] for an elevated troponin, confirmed to be pericarditis. She was utimately discharge home with colchicine which she will initiate treatment with tomorrow. This morning upon waking she noticed localized ropy swelling in the LUE just proximal to the antecubital fossa on the lateral aspect of the arm, exactly where her IV had been placed at [facility] during admission. On examination she has some localized erythema with a palpable cord present which clinically seems consistent with superficial thrombophlebitis. POCUS was performed and confirmed the diagnosis of superficial thrombophlebitis. She is not having fevers, no abscess appreciated on POCUS in the soft tissues, and otherwise has no infectious symptoms. No dyspnea and no circumferential swelling or erythema of the arm. We ultimtaely decided to treat with warm compresses and NSAID's. Patient given return precautions. All questions answered and all parties agreeable with the decision to discharge home. Critical Care <ALICE Diaz - Last Filed: 04/19/25 19:15> Critical Care Time Critical Care Time: No
[2025-04-19 18:30] VITALS: BP 134/85; PULSE 65; RESP 19; O2SAT 96
[2025-04-19 18:45] VITALS: PULSE 74; RESP 17; O2SAT 97
--- OUTSIDE RECORDS SUMMARY | 2025-04-19 18:47 | XMS_ITS | Encounter Summary ---
[facility] Organization [facility] Address [address] [place] [address] Care Team Providers Care Block Captain Name Role Phone Nita Chanel DO Primary Care Provider [phone] Encounter Details Date Type Department Care Team (Latest Contact Info) Description 04/14/2025 Travel Social History Tobacco Use Types Packs/Day Years Used Date Smoking Tobacco: Never Smokeless Tobacco: Never Alcohol Use Standard Drinks/Week Comments No 0 (1 standard drink = 0.6 oz pur e alcohol) AUDIT-C Answer Date Recorded Q1: How often do you have a drink containing alcohol? Never 04/14/2025 Q2: How many drinks containi ng alcohol do you have on a typical day when you are drinking? Patient does not drink Q3: How often do you have si x or more drinks on one occasion? Never 04/14/2025 Abuse Screen Answer Date Recorded Feels Unsafe at Home or Work/School no 04/14/2025 Feels Threatened by Someone no 03/27 Does Anyone Try to Keep You From Having Contact with Others or Doing Things Outside Your Home? no 04/14/2025 Physical Signs of Abuse Present no 04/14/2025 Housing Stability Answer Date Recorded Current Living Arrangements home 03/27 Potentially Unsafe Housing Conditions Not on jayshree e 04/14/2025 Disabilities Answer Date Recorded Difficulty Concentrating, Remembering or Making Decisions no 04/14/2025 Difficulty Managing Errands Independently no 04/14/2025 Comments No Sex and Gender Information Value Date Recorded Sex Assigned at Not on file Legal Sex Female 10:33 AM EDT Gender Identity Not on file Sexual Orientation Not on file documented as of this encounter Functional Status * Calculated C-SSRS Risk Score (Lifetime/Recent) Answer Date of Assessment Author No Risk Indicated 04/14/2025 12:53 PM EDT Ivania Pak RN * [place] Suicide Severity Rating Scale (Screener/Recent Self-Report) Question Answer Date of Assessment Author 1. Wish to be (Past 1 Month) No 025 12:53 PM Ivania Green RN 2. Non-Specific Active Suici virgil Thoughts (Past 1 Month) No 04/14/2025 12:53 PM TOMT Tessa Pak RN 6. Suicidal Behavior (Lifetime) No 12:53 PM Ivania Green RN documented as of this encounter Plan of Treatment Not on file documented as of this encounter Visit Diagnoses Not on filedocumented in this encounter Care Teams Block Captain Relationship Specialty Start Date End Date Nita Chanel DO [address] [place] [address] PCP - General Family Medicine 04/14/25 documented as of this encounter
--- OUTSIDE RECORDS SUMMARY | 2025-04-19 18:47 | XMS_ITS | Encounter Summary ---
Author Organization [facility] Address [address] [place] [address] Care Team Providers Care Bucket Turner Name Role Phone Anthony Chanelca Brenda JENKINS Primary Care Provider [phone] Encounter Details Date Type Department Care Team (Late st Contact Info) Description 04/17/2025 Documentation [facility] [address] [place] [phone] Karen Pickens MA Social History Tobacco Use Types Packs/Day Years Used Date Smoking Tobacco: Never Smokeless Tobacco: Never Alcohol Use Standard Drinks/Week Comments No 0 (1 standard drink = 0.6 oz pur e alcohol) [facility] Utilities Answer Date Recorded In the past [address], gas, oil, or water company threatened [...] and heating? Not hard at all 04/16/2025 [facility] [place] [facility] - Occupational Stress [...] GED or equivalent No 04/16/2025 Preferred Language Hebrew 04/16/2025 PHQ-2 Answer Date Recorded Patient Health Questionnaire-2 Score 0 04/16/2025 Comments No Sex and Gender Information Value Date Recorded Sex Assigned at Not on file Legal Sex Female 10:33 AM EDT Gender Identity Not on file Sexual Orientation Not on file documented as of this encounter Progress Notes * Karen Pickens MA - 04/17/2025 9:39 AM EDT Referral received for Phase II Cardiac Rehab. Staff has reviewed chart and patient does not have a qualifying diagnosis for Phase II Cardiac Rehab at this time. Staff available if further consultation is needed. documented in this encounter Plan of Treatment Not on file documented as of this encounter Visit Diagnoses Not on filedocumented in this encounter Care Teams Bucket Turner Relationship Specialty Start Date End Date Nita Chanel DO [address] [place] [address] PCP - General Family Medicine 04/14/25 documented as of this encounter
--- OUTSIDE RECORDS SUMMARY | 2025-04-19 18:47 | XMS_ITS | Data Portability ---
Author Organization [facility], CKS MELDRIM CLOSED Address [address] [facility] [address] [facility] [facility] [place] [address] Care Team Providers Care Kitchen Stewardess Name Role Phone MIKEY CHANEL Primary Care Provider CARMELA ABDALLA Resident Assistant Cna Assessment Encounter Date Assessment Date Assessment LastModified by Organization Details LastModified Time 01/22/2025 01/22/2025 Return to clinic in 3 months [email or web address] Not available 01/22/2025 14:23:18 Plan of Treatment Reminders Order Date Submit Date Provider Last Modified By Organization Details Last Modified Time Details Appointments RECHE CK 2024 08:00A M CARMELA ABDALLA PA-Juliano Not available Not available Not available PHYSI SIRIA EXAM 2025 09:00A M MIKEY CHANEL DO Not available Not available Not available Lab aller gy testi ng, serum 2024 025 [facility], [address] [place] [address], [id number], 01/24/2025 13:02:04 unlis dontrell lab - aller gy panel B 2024 025 [facility], [address] [place] [address], [address], 01/24/2025 13:02:07 white hicko ry IgE Ab, QN, serum 2024 025 [facility], [address] [place] [address], [address], 01/25/2025 09:52:16 CBC w/ auto diff 2024 025 [facility], [address] [place] [address], [id number], 01/19/2025 12:04:12 CMP, serum or plasm a 2024 025 [facility], [address] [place] [address], [address], 01/19/2025 12:58:38 lipid panel , serum 2024 025 [facility], [address] [place] [address], [address], 01/19/2025 12:58:40 glyco hemog lobin , total , blood 2024 025 [facility], [address] [place] [address], [address], 01/19/2025 12:19:30 TSH, serum , refle x free T4 2024 025 [facility], [address] [place] [address], [address], 01/19/2025 12:38:29 vitam in B12 + folat e, serum or blood 2024 025 [facility], [address] [place] [address], [address], 01/19/2025 12:32:32 iron + total iron- taj ng capac ity (TIBC ), serum 2024 025 [facility], [address] [place] [address], [address], 01/19/2025 12:58:36 vitam in D, 25-hy droxy , total , serum 2024 025 [facility], [address] [place] [address], [id number], 01/19/2025 12:32:31 magne sium, QN, serum or plasm a 2024 025 [facility], [address] [place] [address], [address], 01/19/2025 12:58:34 CK (crea laura kinas e), total , serum 2024 025 [facility], [address] [place] [address], [address], 01/19/2025 12:58:35 Referral aller gist refer ral 2024 025 [email or web address] Chris Botello MD, [address], [facility], [place], [address], 01/16/2025 16:02:[address] refer [facility] 2024 025 [email or web address] Carmela Abdalla PA-C, [address], [place], [address], 01/16/2025 16:02:57 pelvi c floor thera py refer ral 2024 025 [facility], [address], [address], [place], [address], 01/25/2025 19:29:59 gastr oente rolog ist refer ral 2024 025 [email or web address] [facility] Gastroenterology [facility], [address] [facility], [address], [place], [address], 01/30/2025 08:27:32 jennifer valentine, retin a speci alist refer ral 2024 025 [email or web address] [facility], [address], [address], [place], [address], 01/29/2025 15:02:21 Procedures None recor ded. Surgeries None recor ded. Imaging derek r monit or 2024 025 [email or web address] [facility] Heart Station [facility], [address] [place] [address] Lissette Coulter, [address], [place], [address], 03/26/2025 10:46:45 US, carot id arter y 2024 025 [email or web address] [facility] Radiology Cardiology [facility], [address] [place] [address] , [place], [address], 03/26/2025 16:22:01 CT, coron jonathan calci um score [address] , [place], [address], 02/26/2025 08:17:17 US, carot id arter y 2024 025 [email or web address] [facility], [address] [place] [address] , [place], [address], 02/27/2025 09:37:54 MAMMO , scree maría, tomos ynthe sis, bilat eral, w/ CAD 2024 025 [email or web address] 8 [facility] Radiology [facility], [address] [facility], [place], [address], 02/14/2025 08:21:36 Medication Orders levoc etiri zine 5 mg table t 2024 025 [facility], [address] [address], [place], [address], 01/22/2025 14:22:19 albut austin sulfa te HFA 90 mcg/a ctuat ion aeros ol inhal er 2024 025 [facility], [address] [address], [place], [address], 01/22/2025 14:22:19 Breo Ellip ta 100 mcg-2 5 mcg/d ose powde r for inhal ation 2024 025 sandra King [facility], [address] [facility] [address], [place], [address], 01/22/2025 14:22:56 albut austin sulfa te HFA 90 mcg/a ctuat ion aeros ol inhal er 2024 025 MADELEINE [facility], [address] [facility] [address], [place], [address], 01/16/2025 15:11:00 Patient TargetsNo targets recorded. 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 Referral for Screening for malignant neoplasm of colon Referring Physician: Family Shannan Mcnally, Encounter Date: 01/16/2025 Pelvic Floor Therapy Referra l for Overactive urinary bladder Referring Physician: Family Shannan Mcnally, Encounter Date: 01/16/2025 Ophthalmology, Retina Specia list Referral for Bilateral vitreous floaters Referring Physician: Family Shannan Mcnally, Encounter Date: 01/16/2025 Resident Assistant Cna Referral for St ented coronary artery Referring Physician: Family Shannan Mcnally, Encounter Date: 01/16/2025 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 Operator Referral for Aller gic reaction Referring Physician: Family Shannan Mcnally, Encounter Date: 01/16/2025 Results Created Date Observation Date Name Description Value Unit Range Abnormal Flag Note LastModifiedBy Organization Detail LastModifiedTime 01/20/20 25 01/19/2025 COMPL ETE BLOOD COUNT white blood cells 5.5 10*3/ uL 3.8-10 .8 normal Not Available [facility] [address] [place] [address], [address], 01/19/2025 12:04:12 01/20/20 25 01/19/2025 COMPL ETE BLOOD COUNT red blood cells 4.90 10*6/ uL 3.80-5 .20 normal Not Available [facility] [address] [place] [address], [address], 01/19/2025 12:04:12 01/20/20 25 01/19/2025 COMPL ETE BLOOD COUNT hemoglobin 14.2 g/dL 12.0-1 6.0 normal Not Available [facility] [address] [place] [address], [address], 01/19/2025 12:04:12 01/20/20 25 01/19/2025 COMPL ETE BLOOD COUNT hematocrit 42.6 % 35.0-4 7.0 normal Not Available [facility] [address] [place] [address], [address], 01/19/2025 12:04:12 01/20/20 25 01/19/2025 COMPL ETE BLOOD COUNT MCV 87 fL 80-100 normal Not Available [facility] [address] [place] [address], [address], 01/19/2025 12:04:12 01/20/20 25 01/19/2025 COMPL ETE BLOOD COUNT MCH 29 pg 26-35 normal Not Available [facility] [address] [place] [address], [address], 01/19/2025 12:04:12 01/20/20 25 01/19/2025 COMPL ETE BLOOD COUNT MCHC 33 g/dL 32-36 normal Not Available [facility] [address] [place] [address], [address], 01/19/2025 12:04:12 01/20/20 25 01/19/2025 COMPL ETE BLOOD COUNT RDW 12.6 % 11.0-1 5.0 normal Not Available [facility] [address] [place] [address], [address], 01/19/2025 12:04:12 01/20/20 25 01/19/2025 COMPL ETE BLOOD COUNT MPV 7.9 fL 6.2-10 .5 normal Not Available [facility] [address] [place] [address], [address], 01/19/2025 12:04:12 01/20/2001/19/2025 COMPL ETE BLOOD COUNT platelet count 214 10*3/ uL 150-40 0 normal Not Available [facility] [address] [place] [address], [address], 01/19/2025 12:04:12 01/20/20 25 01/19/2025 COMPL ETE BLOOD COUNT neutrophil,a bsolute 2.2 10*3/ uL 1.6-8. 4 normal Not Available [facility] [address] [place] [address], [address], 01/19/2025 12:04:12 01/20/20 25 01/19/2025 COMPL ETE BLOOD COUNT lymphocyte,a bsolute 2.5 10*3/ uL 0.4-5. 1 normal Not Available [facility] [address] [place] [address], [address], 01/19/2025 12:04:12 01/20/20 25 01/19/2025 COMPL ETE BLOOD COUNT monocyte,abs olute 0.5 10*3/ uL 0.0-1. 2 normal Not Available [facility] [address] [place] [address], [address], 01/19/2025 12:04:12 01/20/20 25 01/19/2025 COMPL ETE BLOOD COUNT eosinophil,a bsolute 0.2 10*3/ uL 0.0-0. 8 normal Not Available [facility] [address] [place] [address], [address], 01/19/2025 12:04:12 01/20/20 25 01/19/2025 COMPL ETE BLOOD COUNT basophil,abs olute 0.1 10*3/ uL 0.0-0. 3 normal Not Available [facility] [address] [place] [address], [address], 01/19/2025 12:04:12 01/20/20 25 01/19/2025 COMPL ETE BLOOD COUNT % neutrophils 40.3 % 42.0-7 8.0 low Not Available [facility] [address] [place] [address], [address], 01/19/2025 12:04:12 01/20/2001/19/2025 COMPL ETE BLOOD COUNT % lymphocytes 45.3 % 11.0-4 7.0 normal Not Available [facility] [address] [place] [address], [address], 01/19/2025 12:04:12 01/20/2001/19/2025 COMPL ETE BLOOD COUNT % monocytes 8.9 % 0.0-11 .0 normal Not Available [facility] [address] [place] [address], [address], 01/19/2025 12:04:12 01/20/20 25 01/19/2025 COMPL ETE BLOOD COUNT % eosinophils 4.4 % 0.0-7. 0 normal Not Available [facility] [address] [place] [address], [address], 01/19/2025 12:04:12 01/20/20 25 01/19/2025 COMPL ETE BLOOD COUNT % basophils 1.1 % 0.0-3. 0 normal Not Available [facility] [address] [place] [address], [address], 01/19/2025 12:04:12 01/20/2001/19/2025 COMPL ETE BLOOD COUNT nucleated red cells 0.1 % 0.0-0. 9 normal Not Available [facility] [address] [place] [address], [address], 01/19/2025 12:04:12 01/20/20 25 01/19/2025 COMPL ETE BLOOD COUNT nucleated RBCs, absolute 0.00 10*3/ uL not estab. normal Not Available [facility] [address] [place] [address], [address], 01/19/2025 12:04:12 01/20/2001/19/2025 GLYCO HEMOG LOBIN A1C glyco HGB A1C 5.3 % 0.0-5. 6 normal Not Available [facility] [address] [place] [address], [address], 01/19/2025 12:19:30 01/20/2001/19/2025 GLYCO HEMOG LOBIN A1C estimated avg. glucose 105 mg/dL _(siria c) normal A1c value s betwe en 5.7% to 6.4% indic ate predi abete s. Resul ts 6.5% or great er is diagn ostic of diabe lavelle. Ameri can Diabe lav[facility] [employer] iatio n (diab etes. org) Not Available [facility] [address] [place] [address], [address], 01/19/2025 12:19:30 01/20/2001/19/2025 VITAM IN D 25-OH vitamin D 25-oh, total 39 NG/mL >=30 NG/mL normal Not Available [facility] [address] [place] [address], [address], 01/19/2025 12:32:31 01/20/2001/19/2025 B12/F OLIC ACID PANEL folic acid 6.4 NG/mL 4.6-34 .8 normal Not Available [facility] [address] [place] [address], [address], 01/19/2025 12:32:32 01/20/20 25 01/19/2025 B12/F OLIC ACID PANEL vitamin B12 590 pg/mL 232-12 45 normal Not Available [facility] [address] [place] [address], [address], 01/19/2025 12:32:32 01/20/20 25 01/19/2025 TSH WITH REFLE X FT4 TSH with reflex FT4 1.020 u[IU] /mL 0.270- 4.200 normal Not Available [facility] [address] [place] [address], [address], 01/19/2025 12:38:29 01/20/20 25 01/19/2025 MAGNE SIUM magnesium 2.0 mg/dL 1.6-2. 6 normal Not Available [facility] [address] [place] [address], [address], 01/19/2025 12:58:34 01/20/20 25 01/19/2025 CREAT INE KINAS E creatine kinase 74 U/L 0-169 normal Not Available [facility] [address] [place] [address], [address], 01/19/2025 12:58:35 01/20/20 25 01/19/2025 IRON PANEL -TOTA L AND TIBC iron 78 ug/dL 37-145 normal Not Available [facility] [address] [place] [address], [address], 01/19/2025 12:58:36 01/20/20 25 01/19/2025 IRON PANEL -TOTA L AND TIBC total iron binding cap. 313 ug/dL _(siria c) 250-45 0 normal Not Available [facility] [address] [place] [address], [address], 01/19/2025 12:58:36 01/20/20 25 01/19/2025 IRON PANEL -TOTA L AND TIBC unsat.iron binding cap. 235 ug/dL 112-34 7 normal Not Available [facility] [address] [place] [address], [address], 01/19/2025 12:58:36 01/20/20 25 01/19/2025 IRON PANEL -TOTA L AND TIBC % saturation 25 %_(ca lc) 15-50 normal Not Available [facility] [address] [place] [address], [address], 01/19/2025 12:58:36 01/20/20 25 01/19/2025 COMP. METAB OLIC PANEL glucose 92 mg/dL 74-100 normal Not Available [facility] [address] [place] [address], [address], 01/19/2025 12:58:38 01/20/20 25 01/19/2025 COMP. METAB OLIC PANEL blood urea nitrogen 11 mg/dL 6-20 normal Not Available [facility] [address] [place] [address], [address], 01/19/2025 12:58:38 01/20/20 25 01/19/2025 COMP. METAB OLIC PANEL creatinine 0.79 mg/dL 0.50-0 .95 normal Not Available [facility] [address] [place] [address], [address], 01/19/2025 12:58:38 01/20/20 25 01/19/2025 COMP. METAB OLIC PANEL BUN/creatini ne ratio 14 (calc ) 10-20 normal Not Available [facility] [address] [place] [address], [address], 01/19/2025 12:58:38 01/20/20 25 01/19/2025 COMP. METAB OLIC PANEL sodium 140 mmol/ L 136-14 5 normal Not Available [facility] [address] [place] [address], [address], 01/19/2025 12:58:38 01/20/20 25 01/19/2025 COMP. METAB OLIC PANEL potassium 3.9 mmol/ L 3.4-5. 0 normal Not Available [facility] [address] [place] [address], [address], 01/19/2025 12:58:38 01/20/20 25 01/19/2025 COMP. METAB OLIC PANEL chloride 101 mmol/ L 98-107 normal Not Available [facility] [address] [place] [address], [address], 01/19/2025 12:58:38 01/20/20 25 01/19/2025 COMP. METAB OLIC PANEL carbon dioxide 28 mmol/ L 22-31 normal Not Available [facility] [address] [place] [address], [address], 01/19/2025 12:58:38 01/20/20 25 01/19/2025 COMP. METAB OLIC PANEL anion gap 11 (calc ) 7-25 normal Not Available [facility] [address] [place] [address], [address], 01/19/2025 12:58:38 01/20/20 25 01/19/2025 COMP. METAB OLIC PANEL calcium 9.1 mg/dL 8.6-10 .2 normal Not Available [facility] [address] [place] [address], [address], 01/19/2025 12:58:38 01/20/20 25 01/19/2025 COMP. METAB OLIC PANEL total protein 6.9 g/dL 6.4-8. 3 normal Not Available [facility] [address] [place] [address], [address], 01/19/2025 12:58:38 01/20/20 25 01/19/2025 COMP. METAB OLIC PANEL albumin 4.1 g/dL 3.5-5. 2 normal Not Available [facility] [address] [place] [address], [address], 01/19/2025 12:58:38 01/20/20 25 01/19/2025 COMP. METAB OLIC PANEL globulin 2.8 1.5-4. 5 normal Not Available [facility] [address] [place] [address], [address], 01/19/2025 12:58:38 01/20/20 25 01/19/2025 COMP. METAB OLIC PANEL albumin/glob ulin ratio 1.5 (calc ) 1.1-2. 5 normal Not Available [facility] [address] [place] [address], [address], 01/19/2025 12:58:38 01/20/20 25 01/19/2025 COMP. METAB OLIC PANEL bilirubin, total 0.6 mg/dL 0.1-1. 2 normal Not Available [facility] [address] [place] [address], [address], 01/19/2025 12:58:38 01/20/20 25 01/19/2025 COMP. METAB OLIC PANEL alkaline phosphatase 89 U/L 30-121 normal Not Available [facility] [address] [place] [address], [address], 01/19/2025 12:58:38 01/20/20 25 01/19/2025 COMP. METAB OLIC PANEL AST 18 U/L 0-32 normal Not Available [facility] [address] [place] [address], [address], 01/19/2025 12:58:38 01/20/20 25 01/19/2025 COMP. METAB OLIC PANEL ALT 13 U/L 0-33 normal Not Available [facility] [address] [place] [address], [address], 01/19/2025 12:58:38 01/20/20 25 01/19/2025 COMP. METAB OLIC PANEL GFR 87 >= 60 normal NOT E New calcu latio n for GFR (CKD- EPI 2020) is formu lated witho ut race adjus tment facto rs at the recom menda tion of the [employer] [employer] ation and Ameri can Socie ty of Nephr ology . This calcu latio n has not been valid ated in pregn ant women . For bianka monteiro patie nts refer to https ://[place].nadine stone.o rg/pr ofess ional s/KDO QI/gf r_cal culat orPed Not Available [facility] [address] [place] [address], [address], 01/19/2025 12:58:38 01/20/20 25 01/19/2025 LIPID PROFI LE HDL cholesterol 65 mg/dL 50-242 normal Not Available [facility] [address] [place] [address], [address], 01/19/2025 12:58:40 01/20/20 25 01/19/2025 LIPID PROFI LE triglyceride s 123 mg/dL 0-149 normal TRIGL YCERI DE RANGE S LUIS A L: < 150 BORDE RLINE HIGH: 150 - 199 HIGH: 200 - 499 VERY HIGH: > OR = 500 Not Available [facility] [address] [place] [address], [address], 01/19/2025 12:58:40 01/20/20 25 01/19/2025 LIPID PROFI LE cholesterol 214 mg/dL 0-199 high LUZMARIA STERO L (TOTA L) RANGE S SAMMY ABLE: < 200 BORDE RLINE : 200 - 239 HIGHE R RISK: > 239 Not Available [facility] [address] [place], [address], 01/19/2025 12:58:40 01/20/2001/19/2025 LIPID PROFI LE LDL cholesterol 124 mg/dL _(siria c) 0-99 high LDL LUZMARIA STERO L RANGE S OPTIM AL: < 100 NEAR/ ABOVE OPTIM AL: 100 - 129 BORDE RLINE HIGH: 130 - 159 HIGH: 160 - 189 VERY HIGH: > OR = 190 Not Available [facility] [address] [place] [address], [address], 01/19/2025 12:58:40 01/20/20 25 01/19/2025 LIPID PROFI LE chol/HDL ratio (calc) 3.3 mg/dL normal NO LUIS A L RANGE ESTAB LISHE D FOR LUZMARIA STERO L/HDL RATIO (CALC ULATE D). Not Available [facility] [address] [place] [address], [address], 01/19/2025 12:58:40 01/23/20 25 01/24/2025 ALLER GY PANEL A IgE, total 109 kU/L <or=11 4 normal Not Available [facility] [address] [place] [address], [address], 01/24/2025 17:02:49 01/23/20 25 01/24/2025 ALLER GY PANEL A birch <0.10 kU/L normal Not Available [facility] [address] [place] [address], [address], 01/24/2025 17:02:49 01/23/20 25 01/24/2025 ALLER GY PANEL A class 0 normal Not Available [facility] [address] [place] [address], [address], 01/24/2025 17:02:49 01/23/20 25 01/24/2025 ALLER GY PANEL A white roxane 0.58 kU/L high Not Available [facility] [address] [place] [address], [address], 01/24/2025 17:02:49 01/23/20 25 01/24/2025 ALLER GY PANEL A class 1 normal Not Available [facility] [address] [place] [address], [address], 01/24/2025 17:02:49 01/23/20 25 01/24/2025 ALLER GY PANEL A oak <0.10 kU/L normal Not Available [facility] [address] [place] [address], [address], 01/24/2025 17:02:49 01/23/20 25 01/24/2025 ALLER GY PANEL A class 0 normal Not Available [facility] [address] [place] [address], [address], 01/24/2025 17:02:49 01/23/20 25 01/24/2025 ALLER GY PANEL A maple (box elder) 0.12 kU/L high Not Available [facility] [address] [place] [address], [address], 01/24/2025 17:02:49 01/23/20 25 01/24/2025 ALLER GY PANEL A class 0/1 normal Not Available [facility] [address] [place] [address], [address], 01/24/2025 17:02:49 01/23/20 25 01/24/2025 ALLER GY PANEL A elm <0.10 kU/L normal Not Available [facility] [address] [place] [address], [address], 01/24/2025 17:02:49 01/23/20 25 01/24/2025 ALLER GY PANEL A class 0 normal Not Available [facility] [address] [place] [address], [address], 01/24/2025 17:02:49 01/23/20 25 01/24/2025 ALLER GY PANEL A walnut tree <0.10 kU/L normal Not Available [facility] [address] [place] [address], [address], 01/24/2025 17:02:49 01/23/20 25 01/24/2025 ALLER GY PANEL A class 0 normal Not Available [facility] [address] [place] [address], [address], 01/24/2025 17:02:49 01/23/20 25 01/24/2025 ALLER GY PANEL A white mulberry <0.10 kU/L normal Not Available [facility] [address] [place] [address], [address], 01/24/2025 17:02:49 01/23/20 25 01/24/2025 ALLER GY PANEL A class 0 normal Not Available [facility] [address] [place] [address], [address], 01/24/2025 17:02:49 01/23/20 25 01/24/2025 ALLER GY PANEL A white pine <0.10 kU/L normal Not Available [facility] [address] [place] [address], [address], 01/24/2025 17:02:49 01/23/20 25 01/24/2025 ALLER GY PANEL A class 0 normal Not Available [facility] [address] [place] [address], [address], 01/24/2025 17:02:49 01/23/20 25 01/24/2025 ALLER GY PANEL A mountain cedar <0.10 kU/L normal Not Available [facility] [address] [place] [address], [address], 01/24/2025 17:02:49 01/23/20 25 01/24/2025 ALLER GY PANEL A class 0 normal Not Available [facility] [address] [place] [address], [address], 01/24/2025 17:02:49 01/23/20 25 01/24/2025 ALLER GY PANEL A sycamore <0.10 kU/L normal Not Available [facility] [address] [place] [address], [address], 01/24/2025 17:02:49 01/23/20 25 01/24/2025 ALLER GY PANEL A class 0 normal Not Available [facility] [address] [place] [address], [address], 01/24/2025 17:02:49 01/23/20 25 01/24/2025 ALLER GY PANEL A cottonwood tree <0.10 kU/L normal Not Available [facility] [address] [place] [address], [phone], 01/24/2025 17:02:49 01/23/20 25 01/24/2025 ALLER GY PANEL A class 0 normal Not Available [facility] [address] [place] [address], [address], 01/24/2025 17:02:49 01/23/20 25 01/24/2025 ALLER GY PANEL A leta grass <0.10 kU/L normal Not Available [facility] [address] [place] [address], [address], 01/24/2025 17:02:49 01/23/20 25 01/24/2025 ALLER GY PANEL A class 0 normal Not Available [facility] [address] [place] [address], [address], 01/24/2025 17:02:49 01/23/20 25 01/24/2025 ALLER GY PANEL A perennial rye grass <0.10 kU/L normal Not Available [facility] [address] [place] [address], [address], 01/24/2025 17:02:49 01/23/20 25 01/24/2025 ALLER GY PANEL A class 0 normal Not Available [facility] [address] [place] [address], [address], 01/24/2025 17:02:49 01/23/20 25 01/24/2025 ALLER GY PANEL A ming grass (ky blue) <0.10 kU/L normal Not Available [facility] [address] [place] [address], [address], 01/24/2025 17:02:49 01/23/20 25 01/24/2025 ALLER GY PANEL A class 0 normal Not Available [facility] [address] [place] [address], [address], 01/24/2025 17:02:49 01/23/20 25 01/24/2025 ALLER GY PANEL A bermuda grass <0.10 kU/L normal Not Available [facility] [address] [place] [address], [address], 01/24/2025 17:02:49 01/23/20 25 01/24/2025 ALLER GY PANEL A class 0 normal Not Available [facility] [address] [place] [address], [address], 01/24/2025 17:02:49 01/23/20 25 01/24/2025 ALLER GY PANEL A pasha grass <0.10 kU/L normal Not Available [facility] [address] [place] [address], [address], 01/24/2025 17:02:49 01/23/20 25 01/24/2025 ALLER GY PANEL A class 0 normal Not Available [facility] [address] [place] [address], [address], 01/24/2025 17:02:49 01/23/20 25 01/24/2025 ALLER GY PANEL A bahia grass <0.10 kU/L normal Not Available [facility] [address] [place] [address], [address], 01/24/2025 17:02:49 01/23/20 25 01/24/2025 ALLER GY PANEL A class 0 normal Not Available [facility] [address] [place] [address], [phone], 01/24/2025 17:02:49 01/23/20 25 01/24/2025 ALLER GY PANEL A rough pigweed <0.10 kU/L normal Not Available [facility] [address] [place] [address], [address], 01/24/2025 17:02:49 01/23/20 25 01/24/2025 ALLER GY PANEL A class 0 normal Not Available [facility] [address] [place] [address], [address], 01/24/2025 17:02:49 01/23/20 25 01/24/2025 ALLER GY PANEL A thai thistle <0.10 kU/L normal Not Available [facility] [address] [place] [address], [address], 01/24/2025 17:02:49 01/23/20 25 01/24/2025 ALLER GY PANEL A class 0 normal Not Available [facility] [address] [place] [address], [address], 01/24/2025 17:02:49 01/23/20 25 01/24/2025 ALLER GY PANEL A sheep juanjose <0.10 kU/L normal Not Available [facility] [address] [place] [address], [address], 01/24/2025 17:02:49 01/23/20 25 01/24/2025 ALLER GY PANEL A class 0 normal Not Available [facility] [address] [place] [address], [address], 01/24/2025 17:02:49 01/23/20 25 01/24/2025 ALLER GY PANEL A mugwort <0.10 kU/L normal Not Available [facility] [address] [place] [address], [address], 01/24/2025 17:02:49 01/23/20 25 01/24/2025 ALLER GY PANEL A class 0 normal Not Available [facility] [address] [place] [address], [address], 01/24/2025 17:02:49 01/23/20 25 01/24/2025 ALLER GY PANEL A common ragweed <0.10 kU/L normal Not Available [facility] [address] [place] [address], [address], 01/24/2025 17:02:49 01/23/20 25 01/24/2025 ALLER GY PANEL A class 0 normal Not Available [facility] [address] [place], [address], 01/24/2025 17:02:49 01/23/20 25 01/24/2025 ALLER GY PANEL A cocklebur <0.10 kU/L normal Not Available [facility] [address] [place], [address], 01/24/2025 17:02:49 01/23/20 25 01/24/2025 ALLER GY PANEL A class 0 normal Not Available [facility] [address] [place], [address], 01/24/2025 17:02:49 01/23/20 25 01/24/2025 ALLER GY PANEL A interpretati on SEE NOTE normal Speci fic Level of Aller gen IGE Class kU/L Speci fic IGE Antib romy ----- ----- ---- ----- ----- ----- ---- 0 <0.10 Absen t/Und etect able 0/1 0.10- 0.34 Very Low Level 1 0.35- 0.69 Low Level 2 0.70- 3.49 Moder ate Level 3 3.50- 17.4 High Level 4 17.5- 49.9 Very High Level 5 50-10 0 Very High Level 6 >100 Very High Level The clini siria relev ance of aller gen resul ts of 0.10- 0.34 kU/L are undet ermin ed and inten ded for speci alist use. Aller gens denot ed with a inclu de resul ts using one or more arely te speci fic reage nts. In those cases , the test was devel oped and its arely tical perfo rmanc e clinton cteri stics have been deter mined by [employer] [facility]. It has not been clear ed or appro carlin by the U.S. Food and Drug Admin istra tion. This assay has been valid ated pursu ant to the CLIA regul ation s and is used for clini siria purpo ses. Not Available [facility] [address] [place] [address], [phone], 01/24/2025 17:02:49 01/23/20 25 01/24/2025 ALLER GY PANEL B CAT dander <0.10 kU/L normal Not Available [facility] [address] [place] [address], [address], 01/24/2025 13:02:06 01/23/20 25 01/24/2025 ALLER GY PANEL B class 0 normal Not Available [facility] [address] [place] [address], [address], 01/24/2025 13:02:06 01/23/20 25 01/24/2025 ALLER GY PANEL B dog dander <0.10 kU/L normal Not Available [facility] [address] [place] [address], [address], 01/24/2025 13:02:06 01/23/20 25 01/24/2025 ALLER GY PANEL B class 0 normal Not Available [facility] [address] [place] [address], [address], 01/24/2025 13:02:06 01/23/20 25 01/24/2025 ALLER GY PANEL B mouse epithelia <0.10 kU/L normal Not Available [facility] [address] [place] [address], [address], 01/24/2025 13:02:06 01/23/20 25 01/24/2025 ALLER GY PANEL B class 0 normal Not Available [facility] [address] [place] [address], [address], 01/24/2025 13:02:06 01/23/20 25 01/24/2025 ALLER GY PANEL B horse dander <0.10 kU/L normal Not Available [facility] [address] [place] [address], [address], 01/24/2025 13:02:06 01/23/20 25 01/24/2025 ALLER GY PANEL B class 0 normal Not Available [facility] [address] [place] [address], [address], 01/24/2025 13:02:06 01/23/20 25 01/24/2025 ALLER GY PANEL B goose feathers <0.10 kU/L normal Not Available [facility] [address] [place] [address], [address], 01/24/2025 13:02:06 01/23/20 25 01/24/2025 ALLER GY PANEL B class 0 normal Not Available [facility] [address] [place] [address], [address], 01/24/2025 13:02:06 01/23/20 25 01/24/2025 ALLER GY PANEL B cow dander <0.10 kU/L normal Not Available [facility] [address] [place] [address], [address], 01/24/2025 13:02:06 01/23/20 25 01/24/2025 ALLER GY PANEL B class 0 normal Not Available [facility] [address] [place] [address], [address], 01/24/2025 13:02:06 01/23/20 25 01/24/2025 ALLER GY PANEL B guinea pig epithelia <0.10 kU/L normal Not Available [facility] [address] [place] [address], [address], 01/24/2025 13:02:06 01/23/20 25 01/24/2025 ALLER GY PANEL B class 0 normal Not Available [facility] [address] [place] [address], [address], 01/24/2025 13:02:06 01/23/20 25 01/24/2025 ALLER GY PANEL B rabbit epithelia <0.10 kU/L normal Not Available [facility] [address] [place] [address], [address], 01/24/2025 13:02:06 01/23/20 25 01/24/2025 ALLER GY PANEL B class 0 normal Not Available [facility] [address] [place] [address], [address], 01/24/2025 13:02:06 01/23/20 25 01/24/2025 ALLER GY PANEL B lambs quarters <0.10 kU/L normal Not Available [facility] [address] [place] [address], [address], 01/24/2025 13:04:16 01/23/20 25 01/24/2025 ALLER GY PANEL B class 0 normal Not Available [facility] [address] [place] [address], [address], 01/24/2025 13:04:16 01/23/20 25 01/24/2025 ALLER GY PANEL B mexican plantain <0.10 kU/L normal Not Available [facility] [address] [place] [address], [address], 01/24/2025 13:04:16 01/23/20 25 01/24/2025 ALLER GY PANEL B class 0 normal Not Available [facility] [address] [place] [address], [address], 01/24/2025 13:04:16 01/23/20 25 01/24/2025 ALLER GY PANEL B goldenrod <0.10 kU/L normal Not Available [facility] [address] [place] [address], [address], 01/24/2025 13:04:16 01/23/20 25 01/24/2025 ALLER GY PANEL B class 0 normal Not Available [facility] [address] [place] [address], [address], 01/24/2025 13:04:16 04/28/20 25 01/24/2025 ALLER GY PANEL B alternaria alternata <0.10 kU/L normal Not Available [facility] [address] [place] [address], [address], 01/24/2025 13:04:16 01/23/20 25 01/24/2025 ALLER GY PANEL B class 0 normal Not Available [facility] [address] [place] [address], [address], 01/24/2025 13:04:16 01/23/20 25 01/24/2025 ALLER GY PANEL B aspergillus fumigatus <0.10 kU/L normal Not Available [facility] [address] [place] [address], [address], 01/24/2025 13:04:16 01/23/20 25 01/24/2025 ALLER GY PANEL B class 0 normal Not Available [facility] [address] [place] [address], [address], 01/24/2025 13:04:16 01/23/20 25 01/24/2025 ALLER GY PANEL B cladosporium herbarum <0.10 kU/L normal Not Available [facility] [address] [place] [address], [address], 01/24/2025 13:04:16 01/23/20 25 01/24/2025 ALLER GY PANEL B class 0 normal Not Available [facility] [address] [place] [address], [address], 01/24/2025 13:04:16 01/23/20 25 01/24/2025 ALLER GY PANEL B mucor racemosus <0.10 kU/L normal Not Available [facility] [address] [place] [address], [address], 01/24/2025 13:04:16 01/23/20 25 01/24/2025 ALLER GY PANEL B class 0 normal Not Available [facility] [address] [place] [address], [address], 01/24/2025 13:04:16 01/23/20 25 01/24/2025 ALLER GY PANEL B helminthospo rium <0.10 kU/L normal Not Available [facility] [address] [place] [address], [address], 01/24/2025 13:04:16 01/23/20 25 01/24/2025 ALLER GY PANEL B class 0 normal Not Available [facility] [address] [place] [address], [address], 01/24/2025 13:04:16 01/23/20 25 01/24/2025 ALLER GY PANEL B epicoccum purpurasce <0.10 kU/L normal Not Available [facility] [address] [place] [address], [address], 01/24/2025 13:04:16 01/23/20 25 01/24/2025 ALLER GY PANEL B class 0 normal Not Available [facility] [address] [place] [address], [address], 01/24/2025 13:04:16 01/23/20 25 01/24/2025 ALLER GY PANEL B fusarium moniliforme <0.10 kU/L normal Not Available [facility] [address] [place] [address], [address], 01/24/2025 13:04:16 01/23/20 25 01/24/2025 ALLER GY PANEL B class 0 normal Not Available [facility] [address] [place] [address], [address], 01/24/2025 13:04:16 01/23/20 25 01/24/2025 ALLER GY PANEL B penicillium notatum <0.10 kU/L normal Not Available [facility] [address] [place] [address], [address], 01/24/2025 13:04:16 01/23/20 25 01/24/2025 ALLER GY PANEL B class 0 normal Not Available [facility] [address] [place] [address], [address], 01/24/2025 13:04:16 01/23/20 25 01/24/2025 ALLER GY PANEL B D. pteronyssinu s <0.10 kU/L normal Not Available [facility] [address] [place] [address], [address], 01/24/2025 13:04:16 01/23/20 25 01/24/2025 ALLER GY PANEL B class 0 normal Not Available [facility] [address] [place] [address], [address], 01/24/2025 13:04:16 01/23/20 25 01/24/2025 ALLER GY PANEL B D. farinae <0.10 kU/L normal Not Available [facility] [address] [place] [address], [address], 01/24/2025 13:04:16 01/23/20 25 01/24/2025 ALLER GY PANEL B class 0 normal Not Available [facility] [address] [place] [address], [address], 01/24/2025 13:04:16 01/23/20 25 01/24/2025 ALLER GY PANEL B CAT dander <0.10 kU/L normal Not Available [facility] [address] [place] [address], [address], 01/24/2025 13:04:16 01/23/20 25 01/24/2025 ALLER GY PANEL B class 0 normal Not Available [facility] [address] [place] [address], [address], 01/24/2025 13:04:16 01/23/20 25 01/24/2025 ALLER GY PANEL B dog dander <0.10 kU/L normal Not Available [facility] [address] [place] [address], [address], 01/24/2025 13:04:16 01/23/20 25 01/24/2025 ALLER GY PANEL B class 0 normal Not Available [facility] [address] [place] [address], [address], 01/24/2025 13:04:16 01/23/20 25 01/24/2025 ALLER GY PANEL B cockroach 0.11 kU/L high Not Available [facility] [address] [place] [address], [address], 01/24/2025 13:04:16 01/23/20 25 01/24/2025 ALLER GY PANEL B class 0/1 normal Not Available [facility] [address] [place] [address], [address], 01/24/2025 13:04:16 01/23/20 25 01/24/2025 ALLER GY PANEL B mouse epithelia <0.10 kU/L normal Not Available [facility] [address] [place] [address], [address], 01/24/2025 13:04:16 01/23/20 25 01/24/2025 ALLER GY PANEL B class 0 normal Not Available [facility] [address] [place] [address], [address], 01/24/2025 13:04:16 01/23/20 25 01/24/2025 ALLER GY PANEL B horse dander <0.10 kU/L normal Not Available [facility] [address] [place] [address], [address], 01/24/2025 13:04:16 01/23/20 25 01/24/2025 ALLER GY PANEL B class 0 normal Not Available [facility] [address] [place] [address], [address], 01/24/2025 13:04:16 01/23/20 25 01/24/2025 ALLER GY PANEL B goose feathers <0.10 kU/L normal Not Available [facility] [address] [place] [address], [address], 01/24/2025 13:04:16 01/23/20 25 01/24/2025 ALLER GY PANEL B class 0 normal Not Available [facility] [address] [place] [address], [address], 01/24/2025 13:04:16 01/23/20 25 01/24/2025 ALLER GY PANEL B cow dander <0.10 kU/L normal Not Available [facility] [address] [place] [address], [address], 01/24/2025 13:04:16 01/23/20 25 01/24/2025 ALLER GY PANEL B class 0 normal Not Available [facility] [address] [place] [address], [address], 01/24/2025 13:04:16 01/23/20 25 01/24/2025 ALLER GY PANEL B guinea pig epithelia <0.10 kU/L normal Not Available [facility] [address] [place] [address], [address], 01/24/2025 13:04:16 01/23/20 25 01/24/2025 ALLER GY PANEL B class 0 normal Not Available [facility] [address] [place] [address], [address], 01/24/2025 13:04:16 01/23/20 25 01/24/2025 ALLER GY PANEL B rabbit epithelia <0.10 kU/L normal Not Available [facility] [address] [place] [address], [address], 01/24/2025 13:04:16 01/23/20 25 01/24/2025 ALLER GY PANEL B class 0 normal Not Available [facility] [address] [place] [address], [address], 01/24/2025 13:04:16 01/23/2001/25/2025 WHITE HICKO RY, IGE white hickory <0.10 kU/L normal Not Available [facility] [address] [place], [address], 01/25/2025 09:52:16 01/23/2001/25/2025 WHITE HICKO RY, IGE class 0 normal INTER PRETA TION SPECI FIC LEVEL OF ALLER GEN IGE CLASS kU/L SPECI FIC IGE ANTIB ROMY ----- --- ----- ---- ----- ----- ----- - 0 <0.10 ABSEN T/UND ETECT ABLE 0/1 0.10- 0.34 VERY LOW LEVEL 1 0.35- 0.69 LOW LEVEL 2 0.70- 3.49 MODER ATE LEVEL 3 3.50- 17.4 HIGH LEVEL 4 17.5- 49.9 VERY HIGH LEVEL 5 50-10 0 VERY HIGH LEVEL 6 >100 VERY HIGH LEVEL The clini siria relev ance of aller gen resul ts of 0.10- 0.34 kU/L are undet ermin ed and inten ded for speci alist use. Aller gens denot ed with a inclu de resul ts using one or more arely te speci fic reage nts. In those cases , the test was devel oped and its arely tical perfo rmanc e clinton cteri stics have been deter mined by [facility]. It has not been clear ed or appro carlin by the U.S. Food and Drug Admin istra tion. This assay has been valid ated pursu ant to the CLIA regul ation s and is used for clini siria purpo ses. Not Available [facility] [address] [place], [address], 01/25/2025 09:52:16 01/24/2001/23/2025 nadeem metry testi ng* Spirometry Not Available [facility] [address] [facility] [address], [place], [address], 01/22/2025 14:12:09 02/15/20 25 02/13/2025 elect chema solano am No observ ation record ed. BARCODE Not Available 2024 08:12:23 02/27/20 25 02/26/2025 CT, coron jonathan calci um score [address] [place] [address] [phone] Patiradha angulo Name: KALLIE angulo : [phone] Patiradha angulo 1 Orderi ng Provid er: CARMELA Alba EXAM DATE: 2024 EXAM: CT CARDIA C CALCIU M SCORIN G HISTOR Y: Family histor y of steven ry diseas e COMPAR MICHAEL: None. FINDIN GS: Axial imagin g of the chest was perfor med and the exam is review ed in multip le window settin gs. EKG gating was used in this study target ed the cardio vascul ar struct ures. The visibl e lung thompson show no infilt rate or mass. The visibl e medias tinum shows no indica tion of lympha denopa thy. The steven ry vessel s are well visual ized. The total volume of calcif ied steven ry plaque burden is 438 cu mm. The CAC score is 573. These values indica te a risk catego ry of high . A high calciu m score may be consis tent with signif icant risk of having a cardio vascul ar event within the next 5 years. IMPRES KAMRYN: 1. Calciu m score indica lavelle risk catego ry of high Interp reted By: Navneet Patel MD Electr onical ly Signed By: Navneet Patel MD on 02/27/20 8:12 AM [email or web address] [facility] [address], [place], [address], 02/27/2025 13:54:46 04/06/20 25 04/06/2025 US, carot id arter y No observ ation record ed. [email or web address] [facility] Cardiology [address], [place], [address], 04/06/2025 12:44:20 04/18/20 25 04/12/2025 event monit or No observ ation record ed. [email or web address] Not Available 04/18 15:29:32 Result Notes Documentation Provider Name and Address Organization Details Recorded Time Ct, Coronary Calcium Score : [facility] [address] [place] [address] Patient Name: KALLIE MARIA Patient : 1965 Patient Ordering Provider: CARMELA ABDALLA EXAM DATE: 02/26/2025 EXAM: CT CARDIAC CALCIUM SCORING HISTORY: Family history of coronary disease COMPARISON: None. FINDINGS: Axial imaging of the chest was performed and the exam is reviewed in multiple window settings. EKG gating was used in this study targeted the cardiovascular structures. The visible lung thompson show no infiltrate or mass. The visible mediastinum shows no indication of lymphadenopathy. The coronary vessels are well visualized. The total volume of calcified coronary plaque burden is 438 cu mm. The CAC score is 573. These values indicate a risk category of high . A high calcium score may be consistent with significant risk of having a cardiovascular event within the next 5 years. IMPRESSION: 1. Calcium score indicates risk category of high Interpreted By: Navneet Patel MD Ester webb [facility] 02/27/2025 13:54:46 Problems Name Problem SNOMED Code Status Onset Date Resolution Date Notes Provider Name and Address Organization Details Recorded Time Inflamed seborrhei c keratosis 871424916 Active 2015 From Automated [employer];Provi zenaida: Jon Astudillo;Sta tus: Active Not Available [employer] 03:25:10 Problem Notes Documentation Provider Name and Address Organization Details Recorded Time Resident Assistant Cna Consult Note : [facility] [address] [facility] [id number], Jennie (id #[id number], : 1965) [facility]ARDI[facility] [address] [place] [address] Date: 02/13/2025RE: Kallie Maria, : 1965, PT ID #[id number] Chanel DO, I would like to thank you for referring Kallie Maria to our practice for consultation and evaluation ofTransition of Care Encounter new patient , on 02/13/2025. I have enclosed a copy of the office evaluation for your records. Once again, thank you for allowing me to participate in the care of this patient. Sincerely, Electronically Signed by: CAMRELA ABDALLA PA-C, CHRIS Encounter Reason/DateTransition of Care Encounter new patient 02/13/2025 - 08:00AM - [facility] History of Present IllnessPatient is a 59-year-old female that presents today for new patient evaluation by referral of Dr. Mikey Chanel for history of stented coronary artery. July 2020 - PCI to LAD XIENCE naveed 3.5 x 23 Family history- father of OH at 72, had 2-3 MIs before this. mother had OH at age 39, now s/p CABG. Brother also with CABG. 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 She currently has no cardiovascular symptoms.She does notice hairlessness in her lower extremities. Denies color change, pain, swelling.She reports mild palpitations that occur very infrequently. Usually occurs when she is lying down, described as flutter. She has history of vasovagal syncope, occasional dizziness.Denies chest pain, shortness of breath, palpitations, orthopnea, PND.Review of SystemsAdditionally reports:CONSTITUTIONAL: No weight change, fever, chills, night sweats, fatigue, malaiseENT: No visual changes, hearing problems, dysphagiaCARDIOVASCULAR: As noted in HPIPULMONARY: No SOA, cough, wheezeNEURO: No headaches, numbness, tingling, weaknessMUSCULOSKELETAL: No joint pain, stiffness, swelling, redness, or tendernessPSYCH: No depression, anxiety, or eating concerns ROS as noted in the HPIPhysical ExamGen: Middle aged WF, NAD, answers questions appropriately, appears stated ageHeent: Head atraumatic, normocephalic. PERRL; EOMI; MMM. No nasal discharge. No dysphagiaNECK: Trachea midline. Supple, non-tender, no masses, no thyromegalyPULMONARY: CTA bilaterally, good excursion. No wheezes, rales, rhonchiCARDIAC: RRR. Normal S1/S2, No S3/S4, No murmurs, rubs, or gallops. PMI non-displacedNEUROLOGIC: No tremors, no focal deficits.VASCULAR: No carotid, abdominal, or subclavian bruit, 2+ radial pulses bilaterallyEXTREMITIES: No cyanosis, clubbing or edemaPSYCH: A&O x's 3, normal affectProcedure DocumentationEKG:NSR, rate 69 bpm, QT/QTc 390/410 msAssessment/Plan1.Atheroscle rosis of [place] coronary artery of [place] heart without angina pectorisCAD s/p PCI to LAD XIENCE naveed 3.5 x 23 - 07/2020Patient has had no recurrence of cardiovascular symptoms - currently angina freeAdvised patient to continue daily ASA. She has denied statin therapy in the past, also denies today.Discussed option of CT calcium score for patient given her history and extensive family history of premature CAD - she would like to proceed. Will contact patient with results.Plan to follow up in 6 months or sooner if [email or web address]: Atherosclerotic heart disease of [place] coronary artery without angina pectoris CT CARDIAC CALCIUM SCORING Weight (lbs): 185 Place of service: OFFICE Procedure code: 47242 2.Vasovagal syncopePatient with history of vasovagal syncope, however has never had carotid US to evaluate for stenosis that could be causing symptoms. Will schedule carotid US [id number]: Syncope and collapse US VS CAROTID Weight (lbs): 185 Height (ft.): 5 ft 4 in Date of imagin02/20/2025 Place of service: OFFICE Procedure code: 25610 3.Family history of premature CADfather of OH at 72, had 2-3 MIs before this.mother had OH at age 39, now s/p CABG.Brother also with CABG.Z82.49: Family history of ischemic heart disease and other diseases of the circulatory system 4.Obesity with body mass index 30 or greaterBMI today is 31.8Advised patient on the importance of healthy diet and aerobic exercise. Goal of 120-150 mins per week.E66.9: Obesity, unspecified Body Mass Index: Care Instructions-LC - Handout: Body Mass Index: Care Instructions-LC Return to Office CARDIO_ULTRASOUND for CARDIO ULTRASOUND at RADIOLOGY [facility] on 02/20/2025 at 08:15 AM CHRIS BOTELLO MD for RECHECK at [facility] on 04/20/2025 at 11:30 AM CARMELA ABDALLA PA-C for RECHECK at [facility] on 08/16/2025 at 08:00 AM MIKEY CHANEL DO for PHYSICAL EXAM at [facility] on 01/21/2026 at 09:00 AM MIKEY CHANEL DO [address] [place] [address], [phone], [facility] 02/13/2025 11:28:34 Procedures Surgical History Date Name Laterality Status Provider Name and Address Organization Details Recorded Time 02/14/20 EKG completed CARMELA ABDALLA PA-C [address] [place] [address], [phone] [place] [address] 02/13/2025 11:07:16 02/12/20 22 VAS - Art Dup - Upper Extremity completed LIS NEGRON MD [address] [place] [address], [phone] 02/11/2022 14:03:53 cholecystectomy completed Karen Mei [facility] 08/23/2019 10:51:42 open reduction of fracture with internal fixation completed NICK BRIDGES MD [address] [place] [address], [phone], [facility] 08/14/2022 15:12:41 open reduction of fracture with internal fixation completed NICK BRIDGES MD [address] [place] [address], [phone], [facility] 08/14/2022 15:13:26 inguinal herniorrhaphy completed NICK BRIDGES MD [address] [place] [address], [phone], [facility] 08/14/2022 15:14:09 Stent Placement completed Nneka Cole [facility] 01/16/2025 14:54:59 Imaging Results None recorded. Procedure Notes None recorded. Medical Equipment None Reported. Allergies Allergen ID Allergen Name Allergen Category Reaction Reaction Severity Criticality Documentation Date Start Date Code Code System Note Provider Name and Address Organization Details Recorded Time 357006 codeine medicatio n vomiting Not available Not available 08/20/20162008 2670 RxNorm SHELBI KATZ PA-C [address] [place] [address], [phone], [facility] 2 12:54:08 893173 ketamine medicatio n Not available Not available Not available 05/05/2022 6130 RxNorm verti go Josue Wright [facility] 2 12:24:46 453668 Avelox medicatio n hallucina tions Not available Not available 05/05/2022 97242 6 RxNorm Josue Wright [facility] 2 12:25:06 222304 propofol medicatio n Not available Not available Not available 11/20/2022 8782 RxNorm Anahi Rodriguez [facility] 3 11:14:57 Medications Name Sig Start Date Stop Date Status Note LastModified by Organization Details LastModified Time doxycycline hyclate 100 mg capsule TAKE 1 CAPSULE BY MOUTH TWO TIMES A DAY UNTIL GONE 08/14 completed Not Available Not Available Not Available atorvastati n 20 mg tablet TAKE 1 TABLET BY MOUTH EVERY DAY 05/05 completed Not Available Not Available Not Available phenazopyri dine 200 mg tablet TAKE 1 TABLET BY MOUTH EVERY 8 HOURS NEEDED FOR 2 DAYS 02/22 completed Not Available Not Available Not Available pantoprazol e 40 mg tablet,natali yed release TAKE 1 TABLET BY MOUTH EVERY DAY 05/05 completed Not Available Not Available Not Available nitroglycer in 0.[address] 1 TABLET UNDER TONGUE NEEDED FOR ANGINA. MAY REPEAT EVERY 5 MINUTES FOR UP TO THREE DOSES. 05/05 completed Not Available Not Available Not Available aspirin 81 mg tablet Take 1 tablet every day by oral route. active Not Available Not Available No t Available metoprolol succinate ER 25 mg tablet,exte nded release 24 hr TAKE 1 TABLET BY MOUTH EVERY DAY 05/05 completed Not Available Not Available Not Available ibuprofen 600 mg tablet TAKE 1 TABLET BY MOUTH EVERY EIGHT HOURS NEEDED 08/14 completed Not Available Not Available Not Available albuterol sulfate HFA 90 mcg/actuati on aerosol inhaler Inhale 2 puffs every 4 hours by inhalatio n route for 30 days. 2024 active Not Available Not Available Not Avai lable losartan 50 mg-hydrochl orothiazide 12.5 mg tablet TAKE 1 TABLET BY MOUTH EVERY DAY 05/05 completed Not Available Not Available Not Available hydroxyzine HCl 10 mg tablet TAKE 1 TABLET BY MOUTH 3 TIMES A DAY DIRECTED FOR 7 DAYS 01/16 completed Not Available Not Available Not Available ondansetron 4 mg disintegrat ing tablet DISSOLVE 1 TABLET IN MOUTH FOUR TIMES A DAY NEEDED FOR NAUSEA AND VOMITING 08/14 completed Not Available Not Available Not Available oxycodone 5 mg tablet TAKE 1 TABLET BY MOUTH EVERY FOUR HOURS NEEDED FOR SEVERE PAIN 08/14 completed Not Available Not Available Not Available ezetimibe 10 mg tablet TAKE 1 TABLET BY MOUTH EVERY DAY FOR 90 DAYS active Not Available Not Available No t Available nitrofurant oin monohydrate /macrocryst als 100 mg capsule TAKE 1 CAPSULE BY MOUTH EVERY 12 HOURS WITH MEALS FOR 7 DAYS 02/22 completed Not Available Not Available Not Available Vitamin C 1500mg daily 02/22 completed Not Available Not Available Not Available B Complex 1 po daily prn 02/22 completed Not Available Not Available Not Available levocetiriz ine 5 mg tablet Take 1 tablet every day by oral route for 30 days. 2024 active Not Available Not Available Not Avai lable diclofenac 1 % topical gel apply topically to the affected area(S) four times daily as directed 05/05 completed Not Available Not Available Not Available Probiotic 1 po daily 02/22 completed Not Available Not Available Not Available Vitamin D3 50 mcg (2,000 unit) capsule 2 po daily 02/22 completed Not Available Not Available Not Available Xarelto 15 mg tablet TAKE 1 TABLET BY MOUTH TWO TIMES A DAY. take with a meal or with food 05/05 completed Not Available Not Available Not Available Xarelto 20 mg tablet TAKE 1 TABLET BY MOUTH EVERY DAY WITH EVENING MEAL 05/05 completed Not Available Not Available Not Available Breo Ellipta 100 mcg-25 mcg/dose powder for inhalation Inhale 1 puff every day by inhalatio n route for 30 days. 2024 active Not Available Not Available Not Avai lable Vitals Date Recorded Body height Body mass index (BMI) Body weight Heart rate Systolic And Diastolic Provider Name and Address Organization Details Last Updated DateTime 01/16/2025 162.56 cm 32.3 kg/m2 61705.37 g 72 /min 118/70 mm[Hg] Nneka Bedollan [facility] 01/16/2025 14:53:51 Date Recorded Body height Body mass index (BMI) Body weight Oxygen saturation Oxygen saturation in Arterial blood by Pulse oximetry Heart rate Systolic And Diastolic Provider Name and Address Organization Details Last Updated DateTime 5 162.56 cm 31.6 kg/m2 43503.1 g 98 % 98 % 72 /min 130/84 mm[Hg] Sharonthu Wyatt [facility] 5 13:42:14 Date Recorded Body height Body mass index (BMI) Body weight Oxygen saturation Oxygen saturation in Arterial blood by Pulse oximetry Heart rate Systolic And Diastolic Provider Name and Address Organization Details Last Updated DateTime 5 162.56 cm 31.8 kg/m2 51169.9 9 g 94 % 94 % 69 /min 110/72 mm[Hg] [facility] 5 08:14:01 Date Recorded Body height Body mass index (BMI) Body weight Body temperature Heart rate Respiratory rate Oxygen saturation Oxygen saturation in Arterial blood by Pulse oximetry Systolic And Diastolic Provider Name and Address Organization Details Last Updated DateTime 5 162.56 cm 32.4 kg/m2 23017.9 6 g 98.1 [degF] 76 /min 16 /min 97 % 97 % 130/86 mm[Hg] Della Kade [facility] 5 11:33:58 Date Recorded Body height Body mass index (BMI) Body weight Heart rate Oxygen saturation Oxygen saturation in Arterial blood by Pulse oximetry Systolic And Diastolic Provider Name and Address Organization Details Last Updated DateTime 5 162.56 cm 32.1 kg/m2 63077.7 7 g 76 /min 96 % 96 % 128/84 mm[Hg] Lynnette Patterson [facility] 09:41:22 Social History Question Answer Notes LastModified by Organizat ion Details LastModified Time Tobacco Smoking Status [facility] 10:51:28 What Is Your Level Of Caffeine Consumption? None [email or web address] Information not available 05/05/2022 What Was The Date Of Your Most Recent Tobacco Screening? 03/26/2025 [email or web address] Information not available 03/26/2025 How Many Children Do You Have? 2 Information not available 08/14/2022 What Is Your Relationship Status? [email or web address] Information not available 01/16/2025 Sex: Unknown Functional Status Question Answer Note LastModified by Organizat ion Details LastModified Time Do you use any illicit or recreational drugs? No [email or web address] Information not available 05/05/2022 Do you or have you ever used any other forms of tobacco or nicotine? No Information not available 05/05/2022 What is your level of alcohol consumption? None [email or web address] Information not available 05/05/2022 Are you currently employed? 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 Family History Relationship Description Onset Age of this Age Resolved Age Notes LastModified by Organization Details LastModified Time Father Heart disease [email or web address] Not available 2018 10:50:54 Mother Heart disease [email or web address] Not available 2018 10:50:54 Mother Diabetes mellitus [email or web address] Not available 2018 10:51:10 Mother Cerebrovascu lar accident hvallance Not available 10:51:24 Brother Heart disease 50 [email or web address] Not available 2024 14:33:12 Brother Diabetes mellitus hvallance Not available 2018 10:51:10 Brother Cerebrovascu lar accident hvallance Not available 10:51:24 Brother Heart disease 45 51 Not available 2024 14:33:12 Paternal Uncle Malignant neoplasm of lung [email or web address] Not available 2021 15:10:32 Medical History Condition Response Coronary Artery Disease Y Other Y Gout N Atrial Fibrillation N Kidney Stones N Hyperthyroidism N Blood Transfusion N Emphysema N Depression N COPD N Pneumonia N Venereal Disease N Seasonal Allergies Y Anxiety Disorder N Muscle, Joint, or Bone Problems N Vision or Eye Problems Y Arthritis N Previous injury to face Y Polyps N Infertility N Blood Clot Y Cancer Y Varicosities N Stroke N Neurologic Disorder N Fibromyalgia N Headaches N Kidney Disease N Heart Problems Y Ear or Hearing Problems N Hospitalizations Y Migraines Y Skin Problems N Eating Disorder N Meningitis N Constipation N Ulcers N Other Skin Condition N Rhinitis N Rheumatic Fever N Bleeding Disorder N Tuberculosis N AIDS/HIV N Nasal polyps N Asthma N GERD/Reflux N Hepatitis N Pulmonary Embolism N Chronic Ear Infections N Chicken Pox Y Thrombophilias N Hernia Y Glaucoma N Hypothyroidism N Lung Disease N Nasal or Sinus Problems Y Breast Problem N Measles N Difficulty Swallowing N Genitourinary Disease N Meniere's disease N Hearing Loss N Radiation Therapy N Endometriosis N Bladder or Kidney Problems N High Cholesterol N Liver Disease N Panic Disorder N Allergies/Hayfever Y Mumps N Parkinson's Disease N Thyroid Problems N GI Problems N Anemia Y Heart Attack ([place]) Y Mental Illness N Psychiatric Illness N Diabetes N Ovarian Cancer N Seizures/Epilepsy N Hyperlipidemia N Eczema N Diverticulitis N Hepatitis B N Rubella N Epilepsy/Seizures N Reflux/GERD N Sleep Apnea N Heart Disease N Hypertension N Pre-Eclampsia N Osteoporosis N Gynecological HistoryNo gynecological history recorded. Obstetrics History GPAL:G 2 P 2 0 0 0 Type Value Full Term 2 Total 2 Immunizations Vaccine Type Date Status Note Provider Nam e and Address Organization Details Recorded Time Td(adult) unspecified formulation 09/27/2015 completed NICK BRIDGES MD [facility] [place], [address], [facility] 08/14/2022 15:09:35 Past Encounters Encounter ID Performer Location Encounter Start Date Encounter Closed Date Diagnosis/Indication Diagnosis SNOMED-CT Code Diagnosis ICD10 Code Diagnosis Note [id number] LINDA LAGUNA PA-C [facility] [address] [place] [address] 08/23/2019 10:27:20 08/23/2019 12:14:49 Left upper quadrant pain 935418971 R10.12 Constipation 41682568 9.00 [id number] SETLLA CORDOBA PA-C [facility] [address] [place] [address] 08/29/2021 11:28:15 09/01/2021 07:27:58 Dysuria 55031687 R30.9 [id number] LIS NEGRON MD [facility] [address] [place] [address] 02/11/2022 08:52:00 02/17/2022 12:54:05 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 imaging and the case was discussed with Dr. Velasquez today. Recommend that patient wear tall walking boot which will be ordered today as well as weightbear ing as tolerated. She does have crutches that she can utilize. She can utilize topical diclofenac cream as well as over-the-c ounter Tylenol. She should not have NSAIDs due to her history of CAD. She says pain is tolerable or not. Follow up in 3 weeks with Gilles. I will give her ankle range of motion and mobility exercises that she can do while at home. she voiced understand ing and agreement with this plan. [id number] IGNACIA ASHER PA-C [facility] [address] [address] 03/03/2022 12:13:09 03/03/2022 13:19:29 Pain of left hip joint 3640611386 09784 M25.552 Trochanter ic bursitis of left hip 5143068640 81653 M70.62 recommend utilizing over-the-c ounter naproxen for anti-infla mmatory properties as well as pain relief. I'll provide her with trochanter ic bursitis exercises that she can do. Recommende d she continue wearing the boot that she is currently weightbear ing for her left ankle sprain until she can follow up with sports medicine. Also explained that she may find ice massages helpful in relief of the inflammati on. She was understand ing and agreement with this plan. [id number] GILLES HARRISON PA-C [facility] [address] [place] [address] 03/18/2022 07:48:17 03/18/2022 08:16:30 Sprain of lateral ligament of ankle joint 596878621 S93.491A Assessment : Left lateral ankle sprain. Plan: From my standpoint she may begin initiating the boot as tolerated using pain as a guidance. She may use ice, heat, ibuprofen and Tylenol as needed for symptomati c control going forward. Follow-up on an as-needed basis going forward. [id number] IGNACIA ASHER PA-C [facility] [address] [address] 04/02/2022 15:35:17 04/02/2022 16:29:21 Pain in right foot 8587588822 38574 M79.671 Sprain of deltoid ligament of ankle 14272719 S93.421A I will provide her with home exercise program for ankle strengthen ing. She can weight-yoandy r as tolerated. She does not need a brace at this time. Recommend utilizing ice, Tylenol, elevation for symptom relief. Follow up as needed. Patient voiced understand ing and agreement with this plan. [id number] SHELBI KATZ PA-C [facility] [address] [place] [address] 05/05/2022 12:19:43 05/05/2022 12:57:29 Acute urinary tract infection 944004021 N39.0 [id number] NICK BRIDGES MD [facility] [address] [place] [address] 08/14/2022 14:29:38 08/14/2022 16:06:02 Loss of hair 958975699 L65.9 check labs [id number] KELLE CLAY MD [facility] [address] [place] [address] 11/13/2022 09:19:15 11/13/2022 11:45:42 Closed fracture of distal end of left radius 3580190484 7174168 S52.502S Stiffness of joint of left hand 9805525228 63665 M25.642 [id number] KELLE CLAY MD [facility] [address] [address] 11/20/2022 09:56:38 11/20/2022 12:59:23 Closed fracture of distal end of left radius 2878165686 0294858 S52.502S Previously status post operative fixation of her left distal radius by Dr. Matthews on 05/12/2023 Stiffness of joint of left hand 3715787062 43978 M25.642 [id number] MEMO SULLIVAN APRN [facility] [address] [place] [address] 10/14/2023 09:55:51 10/14/2023 10:38:48 Dysuria 67275421 R30.0 UA positive for leuks and blood - based on symptoms and history will go ahead and call in antibiotic s to treat for UTI - will confirm with cultureDri nk plenty of fluids.Freddy e antibiotic for entire course of treatment. Void frequently .Make sure to always wipe from front to back.Urina te after sexual intercours e.If symptoms worsen, develop any fevers, or flank pain please follow up RADHA. [id number] JADE HOOK PA-C [facility] [address] [place] [address] 02/23/2024 16:47:09 02/23/2024 17:21:25 Allergic reaction 480412657 T78.40XA Contact / allergic reaction - mild. Improving per pt. Advised pt to wash face with gentle cleanser such as cetaphil BID and apply moisturize r after. If going outdoors advised she wear a wide brimmed hat / sunscreen. Hydroxyzin e provided for PRN use. Cautioned of sedative effects with use. If no improvemen t or worsening of symptoms, RTC or to see PCP. If lip edema, SOA or chest pain present - proceed to nearest ER. She expressed understand ing and is agreeable to plan of care. [id number] IGNACIA ASHER PA-C [facility] [address] [place] [address] 12/12/2024 18:02:37 12/14/2024 05:11:53 Peroneal tendinitis 01166996 M76.72 Exam consistent with peroneal tendon strain. Discussed tall walking boot versus ankle brace. Patient wants to try a lace up brace first, okay for this. Lace up ankle brace when up and active, can take off at rest. Emphasize importance of range of motion. Weightbear ing as tolerated with this. Follow-up with me in a few weeks to see how she is responding to conservati ve care. If no improvemen t then recommend walking boot at that time. [id number] MIKEY CHANEL, FAMILY [address] [place] [address] 01/16/2025 14:31:26 01/16/2025 15:28:33 Adult health examination 915209318 Z00.00 The patient was advised to continue a healthy diet and exercise regularly. 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 Ok to double PRN. Chronic cough 70124012 R 05.3 - Unclear etiology. Suspect combinatio n of rhinitis and asthma- Spirometry obtained on 01/22/2025 was normal with an FEV1 to FVC ratio of 78%.- Start Breo 100, 1 puff once a day and rinse your mouth out afterwards - Use albuterol as needed for breakthrou gh symptoms History of urticaria 362 7689787 9983122 Z87.2 - avoid skin testing in favor of blood testing. [id number] CARMELA ABDALLA PA-C CARDIOLOG Y [address] [place] [address] 02/13/2025 07:46:34 02/13/2025 08:39:38 Family history of premature coronary heart disease 684764442 Z82.49 father of OH at 72, had 2-3 MIs before this.niesha shaw had [place] at age 41, now s/p CABG.Broth er also with CABG. Coronary atherosclerosis 512114089 I25.10 CAD s/p PCI to LAD XIENCE naveed 3.5 x 23 - 07/2020Pat ient has had no recurrence of cardiovasc ular symptoms - currently angina freeAdvise d patient to continue daily ASA. She has denied statin therapy in the past, also denies today.Disc ussed option of CT calcium score for patient given her history and extensive family history of premature CAD - she would like to proceed. Will contact patient with results.Pl an to follow up in 6 months or sooner if needed Body mass index 30+ - obesity 989454947 E66.9 BMI today is 31.8Advise d patient on the importance of healthy diet and aerobic exercise. Goal of 120-150 mins per week. Vasovagal syncope 368246 005 R55 Patient with history of vasovagal syncope, however has never had carotid US to evaluate for stenosis that could be causing symptoms. Will schedule carotid US today [id number] WIN GALVAN PA-C [facility] [address] [place] [address] 02/27/2025 11:30:07 02/27/2025 11:49:13 Left sided abdominal pain 710881503 R10.9 Appears to be muscular skeletal. She can try heat and/or diclofenac gel to the area. If this does not resolve the symptoms return to clinic. She cannot give a urine sample in office today [id number] CARMELA ABDALLA PA-C CARDIOLOG Y [address] [place] [address] 03/26/2025 09:31:24 04/02/2025 10:42:41 Coronary atherosclerosis 097753852 I25.10 CAD s/p PCI to LAD XIENCE naveed 3.5 x - 07/2020Pat ient has had no recurrence of cardiovasc ular symptoms - currently angina freeContin ue daily ASA, ezetimibe 10mg. She has denied statin therapy in the past, also denies today. Vasovagal syncope 841654 005 R55 Patient with history of vasovagal syncope, however has never had carotid US to evaluate for stenosis that could be causing symptoms. Will schedule carotid US today Family his tory of premature coronary heart disease 015836766 Z82.49 father of OH at 72, had 2-3 MIs before this.niesha shaw had OH at age 41, now s/p CABG.Broth er also with CABG. Body mass index 30+ - obesity 987647071 E66.9 BMI today is 32.1Advise d patient on the importance of healthy diet and aerobic exercise. Goal of 120-150 mins per week. Calcificat ion of coronary artery [id number] R93.1 The CAC score is 573. These values indicate a risk category of high Disc ussed with patient the importance of improving risk factors including blood pressure and cholestero l as this score puts her at higher risk of having cardiovasc ular event.Carolynn ent to continue daily ASA and ezetimibe - she has denied statin therapyDec reased sodium, increased exercisePl an to follow up in 6 months or sooner if needed Palpitations [id number] R0 0.2 Patient has been experienci ng increase in palpitatio [facility] holter monitor today for 7 days to evaluate for arrhythmia s Dizziness [id number] R42 Patient has been experienci ng sudden bouts of dizziness in which she must sit down before she experience s syncopeHas not lost consciousn essLow blood pressure readings during these episodesWi ll arrange for carotid ultrasound to rule out carotid artery stenosis as etiology of symptoms Health Concerns Section Related Observation LastModified by Organization Detai ls LastModified Time None Recorded Concern Status LastModified by Organization Details LastModified Time None Recorded Advance Directives Directive None Recorded Payers Insurance Date Sequence Insurance Name Policy Number Policy Pradhan Covered Member ID Pradhan Member ID Guarantor Name 12/16/2024 1 [place] [id number] Kallie Maria [id number] Kallie Maria 04/17/2025 1 [place] [id number] Kallie K Maria [id number] Kallie Maria 10/14/2023 1 [place] [id number] Kallie Maria [id number] Kallie Maria 10/14/2023 1 [place] [id number] Kallie Maria [id number] Kallie Maria Notes Date Note Type Note Provider Name and Address Organization Details Recorded Time 5 text/html Patient presents to establish care and physical. Hx of OH: [address] Beaver, [address] [facility] normal per patient OAB: urgency over the past year Floaters: Seeing business planning director, had migraine and has floaters, had referral to retina specialist, seeing floaters, working makes it worse, difficulty with vision.Allergic reaction: certain smells cause loss of voice, itchy eyes, sneezing and so bad she will have to go home from work. Hair loss: chronic ongoing issue, would like labs Last mammo: at a few years agoLast pap: [address], no family hx of coca, multiple polyps in brother, motherFlu shot: declinesCovid: declinesTDAP: TD 2016, dueShingrix: duePneumo: duedeclines all vaccines. MIKEY CHANEL, DO [address] [place], [phone], [facility] 01/17/2025 16:29:47 5 text/html ROS as noted in the HPI The patient is a 59-year-old female presenting with symptoms consistent with allergic rhinitis and possible asthma. She reported experiencing allergy issues intermittently since the age of 32. 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 She identified exposure to [employer] laundry beads and workplace allergens as triggers. She experiences voice loss, red and itchy eyes, and a cough when exposed to these allergens. Her symptoms exacerbate during the winter season when coworkers frequently use the allergens she is sensitive to. She notes that taking ieth-[id number]-[id number] antihistamines like Zyrtec provided symptom relief, but it also caused significant dryness of the eyes, contributing to ongoing vision issues. The patient also mentioned a nostril drip occurring over the weekend, primo to symptoms she experienced decades prior. Respiratory issues are of concern as she was previously prescribed an albuterol inhaler around 15 years ago due to frequent bronchitis episodes; however, she has not used the inhaler in approximately five years. There is no prior diagnosis of asthma. Throughout the examination, the patient denied smoking or vaping and confirmed no food allergies, eczema, or significant exposure to allergens from foods. She has a pet dog. She reports that she previously underwent environmental allergy testing via skin testing but had dermatographism and thus had to have follow-up blood work. Not avoiding foods due to concern of allergy.No history of asthma dxd.No history of atopic dermatitis. Past Medical History:as abovedry eyeshistory of OH in July 2020- on beta shelbie: no Family History - reviewed and noncontributory Social History:- Does not smoke or vape nicotine products Environmental History:- Pets: dog- Employment/ School: works in [employer] CHRIS BOTELLO MD [address] [place] [address], [phone], [facility] - [facility] 01/22/2025 14:24:41 5 text/html ROS as noted in the HPI Patient is a 59-year-old female that presents today for new patient evaluation by referral of Dr. Mikey Chanel for history of stented coronary artery. July 2020 - PCI to [facility] naveed 3.5 x 23 Family history- father of OH at 72, had 2-3 MIs before this. mother had OH at age 39, now s/p CABG. Brother also with CABG. 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 She currently has no cardiovascular symptoms.She does notice hairlessness in her lower extremities. Denies color change, pain, swelling.She reports mild palpitations that occur very infrequently. Usually occurs when she is lying down, described as flutter. She has history of vasovagal syncope, occasional dizziness.Denies chest pain, shortness of breath, palpitations, orthopnea, PND. CARMELA ABDALLA PA-C [address] [place], [phone], [facility] 02/13/2025 11:13:44 5 text/html ROS as noted in the HPI A 59-year-old female presents with a 1 week hx of pain in left abd. She states it is about a 2/10 pain. Nothing makes worse or better. Not worse with movement. NO changes in BMs. No dysuria or urinary freq. NO radiating pain. NO known injury. Denies f/n/v/d, soa, chest pain, dizziness, syncope, body aches, chills, rashes, increased gas, bloating, black or dark stools, flank pain or recent abx use WIN GALVAN PA-C [address] [place], [phone], [facility] 02/27/2025 11:47:21 5 text/html ROS as noted in the HPI Patient is a 59-year-old female that presented initially by referral of Dr. Mikey Chanel for history of stented coronary artery. July 2020 - PCI to [facility] naveed 3.5 x 23 Family history- father of OH at 72, had 2-3 MIs before this. mother had OH at age 39, now s/p CABG. Brother also with CABG. 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 She does notice hairlessness in her lower extremities. Denies color change, pain, swelling.She reports mild palpitations that occur very infrequently. Usually occurs when she is lying down, described as flutter. She has history of vasovagal syncope, occasional dizziness. CT Calcium score 02/26/25:The CAC score is 573.These values indicate a risk category of high . A high calcium scoremay be consistent with significant risk of having a cardiovascularevent within the next 5 years. Started patient on ezetimibe 10mg on 02/26/25 She reports today for follow up.She notes she has been having new symptoms - including hypotension and weakness. She reports she has checked her BP during times of weakness and has had readings as low as 80s/60s. Sits down, relaxes, and rechecks BP and returns to normal.She also reports increased palpitations and her BP machine did slate picker an abnormal heart beat.Denies chest pain, shortness of breath, orthopnea, PND. CARMELA ABDALLA PA-C [address] [place], [phone], [facility] 03/27/2025 14:20:57 OBGyn Episode No OBEpisode recorded.
--- OUTSIDE RECORDS SUMMARY | 2025-04-19 18:47 | XMS_ITS | Clinical Summary ---
Author Organization [facility] Address [address] [place] [address] Care Team Providers Care Therapeutic Radiologist Name Role Phone Unavailable Primary Care Provider Unavailabl e Social History Tobacco Use Types Packs/Day Years Used Date Smoking Tobacco: Never Assessed Comments Unknown Sex and Gender Information Value Date Recorded Sex Assigned at Not on file Legal Sex Female 9:40 AM EST Gender Identity Not on file Sexual Orientation Not on file Plan of Treatment Health Maintenance Due Date Last Done Comments [facility]-Depression Screening 1967 [facility]-/Child/Adol SDOH Screenings 1967 [facility]- SDOH Screenings 1985 [facility]-Adult SDOH Screenings 1985 [facility]-DTaP,Tdap,and Td Vaccine s (1 - Tdap) 1986 [facility]-Hepatitis B Vaccines (1 of 3 - 19+ 3-dose series) 1986 [facility]-Pap Smear 1988 [facility]-Cervical Cancer Screening 1997 [facility]-HPV/Cotest 1997 CT Colonography 2012 Colonoscopy 2012 FIT-DNA 2012 FIT 2012 FOBT 2012 Sigmoidoscopy 2012 [facility]-Colorectal Cancer Screening 2012 [facility]-Pneumococcal Vaccine: 50 + Years (1 of 1 - PCV) 2017 [facility]-Zoster Vaccines (1 of 2) 2017 [id number] Vaccine (1 - 20 24-25 season) 2024 [facility]-Influenza Vaccine (#1) 2025 HPV Vaccines Aged Out No longer eligi ble based on patient's age to complete this topic [facility]-HIB Vaccines Aged Out No longer e ligible based on patient's age to complete this topic [facility]-Hepatitis A Vaccines Aged Out No longer eligible based on patient's age to complete this topic [facility]-IPV Vaccines Aged Out No longer e ligible based on patient's age to complete this topic [facility]-Rotavirus Vaccines Aged Out No lo nger eligible based on patient's age to complete this topic Insurance
--- OUTSIDE RECORDS SUMMARY | 2025-04-19 18:47 | XMS_ITS | Encounter Summary ---
Author Organization [facility] Address [address] [place] [address] Care Team Providers Care Billboard Erector Name Role Phone Anthony Chanelca Brenda JENKINS Primary Care Provider [phone] Encounter Details Date Type Department Care Team (Late st Contact Info) Description 04/16/2025 Readmission Management [facility] [address] [place] [phone] Ashli Dey, RN Social History Tobacco Use Types Packs/Day Years Used Date Smoking Tobacco: Never Smokeless Tobacco: Never Alcohol Use Standard Drinks/Week Comments No 0 (1 standard drink = 0.6 oz pur e alcohol) [facility] Utilities Answer Date Recorded In the past 12 months has [employer], gas, oil, or water company threatened [...] and heating? Not hard at all 04/16/2025 [facility] - Occupational Stress [...] GED or equivalent No 04/16/2025 Preferred Language Bengali 04/16/2025 PHQ-2 Answer Date Recorded Patient Health Questionnaire-2 Score 0 04/16/2025 Comments No Sex and Gender Information Value Date Recorded Sex Assigned at Not on file Legal Sex Female 10:33 AM EDT Gender Identity Not on file Sexual Orientation Not on file documented as of this encounter Functional Status * Audit-C Score Answer Date of Assessment Author 0 04/16/2025 10:03 AM Sarita Yanez RN * Question Answer Date of Assessment Author Q1: How often do you have a drink containing alcohol? Never 04/16/2025 10:03 AM Sarita Yanez RN Q2: How many drinks containing alcohol do you have on a typical day when you are drinking? Patient does not drink 04/16/2025 10:03 AM Sarita Yanez RN Q3: How often do you have six or more drinks on one occasion? Never 04/16/2025 10:03 AM Sarita Yanez RN * Over the past 2 weeks, how often have you been bothered by any of the following problems? Question Answer Date of Assessment Author Patient Health Questionnaire -2 Score 0 04/16/2025 10:03 AM Sarita Yanez RN * Question Answer Date of Assessment Author Little interest or pleasure in doing things Not at all 04/16/2025 10:03 AM Sarita Yanez RN Feeling down, depressed, or hopeless Not at all 04/16/2025 10:03 AM Sarita Yanez RN documented as of this encounter Miscellaneous Notes * Outreach Note - Ashli Dey RN - 04/16/2025 6:59 PM EDT Prep Survey Flowsheet Row [facility] ? Yes Eligibility Readm Mgmt Discharge diagnosis NSTEMI (non-ST elevated myocardial infarction) Does the patient have one of the following disease processes/diagnoses(primary or secondary)? AcuteMI (STEMI,NSTEMI) Prep survey completed? Yes Ashli D - Registered Nurse documented in this encounter Plan of Treatment Not on file documented as of this encounter Visit Diagnoses Not on filedocumented in this encounter Care Teams Billboard Erector Relationship Specialty Start Date End Date Nita Chanel DO [address] [place] [address] PCP - General Family Medicine 04/14/25 documented as of this encounter
--- OUTSIDE RECORDS SUMMARY | 2025-04-19 18:48 | XMS_ITS | Clinical Summary ---
[facility] Address [address] [place] [address] Care Team Providers Care Case Preparer And Liner Name Role Phone No Chanelecmonty Gutierrez DO Primary Care Provider [phone] Allergies Active Allergy Reactions Criticality Noted Date Comments Moxifloxacin Hallucinations 05/06/2022 Codeine GI Intolerance Low 02/11/2017 Ketamine And Related Nausea And Vomiting,Delirium 04/28/2022 Propofol Shortness Of Breath High 04/14/2025 Medications Multiple Vitamins-Minerals (MULTIVITAMIN ADULT PO) Take 1 tablet by mouth Daily. OTC Active nitroglycerin (NITROSTAT) 0.4 MG SL tablet 1 under the tongue as needed for angina, may repeat q5mins for up three doses 100 tablet 11 08/17/20 Active Additional Information Patient taking differently: 0.4 mg Sublingual Every 5 Minutes PRN, Chest Pain,, Informant: Self, Reported on 04/14/2025 albuterol sulfate HFA 108 (90 Base) MCG/ACT inhaler Inhale 2 puffs Every 6 (Six) Hours As Needed for Wheezing or Shortness of Air. Active aspirin 81 MG chewable tablet Chew 1 tablet Daily. OTC Active ezetimibe (ZETIA) 10 MG tablet Take 1 tablet by mouth Daily. Active levocetirizine (XYZAL) 5 MG tablet Take 1 tablet by mouth Every Evening. OTC Active colchicine 0.6 MG tablet Take 1 tablet by mouth Daily. 30 tablet 04/16/20 25 Active atorvastatin (LIPITOR) 80 MG tablet Take 1 tablet by mouth Every Night. 90 tablet 04/16/20 25 Active oxyCODONE (Roxicodone) 5 MG immediate release tabletIndications: Closed fracture of distal end of left radius, unspecified fracture morphology, initial encounter,Dislocat ion of right ulnar styloid, initial encounter Take 1 tablet by mouth Every 4 (Four) Hours As Needed for Severe Pain . 8 tablet 04/28/20 22 025 Discontin ued(*Ther apy completed ) ibuprofen (ADVIL,MOTRIN) 600 MG tablet Take 1 tablet by mouth Every 6 (Six) Hours As Needed for Mild Pain . 20 tablet 04/28/20 22 025 Discontin ued(*Ther apy completed ) ondansetron ODT (ZOFRAN-ODT) [address] 1 tablet on the tongue 4 (Four) Times a Day As Needed for Nausea or Vomiting. 12 tablet 04/28/20 22 025 Discontin ued(*Ther apy completed ) Fluticasone Furoate-Vilanterol 100-25 MCG/ACT aerosol powder Inhale 1 puff Daily. 025 Discontin ued(*Ther apy completed ) Active Problems Problem Noted Date Diagnosed Date Chest pain 04/14/2025 NSTEMI (non-ST elevated myocardial infarction) 0 04/14/2025 AMI anterior wall 08/15/2020 Bradycardia 05/08/2017 Vitamin D deficiency 05/08/2017 Vasovagal near syncope 02/11/2017 Encounters Date Type Department Care Team Description 04/17/2025 Documentation [facility] CARDIAC REHABILIATATION [address] [place] [address] Karen Pickens MA 04/16/2025 2:25 PM EDT - 04/16/2025 3:25 PM EDT Surgery [facility] [address] [place] [address] Tracey Cheng MD Left Heart Cath [[id number] (CPT )] 04/16/2025 Readmission Management [facility] NURSE CALL CENTER [address] [place] [address] Ashli Dey RN 04/14/2025 12:43 PM EDT - 04/16/2025 6:38 PM EDT Hospital Encounter [facility] [address] [place] [address] Tommie Miranda DO Anderson, Laurie, MD Opii, Wycliffe, MD NSTEMI (non-ST elevated myocardial infarction) (Primary Dx); Chest pain, unspecified type; Elevated troponin Discharge Disposition: Home or Self Care 04/14/2025 Travel from Last 3 Months Family History Medical History Relation Name Comments Diabetes Brother 1 Heart disease Brother 1 CABG Diabetes Brother 2 Heart disease Brother 2 CABG Stroke Brother 2 Heart attack Father Hypertension Father Heart attack Maternal Grandfather Heart attack Maternal Grandmother Heart attack Mother Hypertension Mother No Known Problems Paternal Grandfather No Known Problems Paternal Grandmother Breast cancer Neg Hx Ovarian cancer Neg Hx Relation Name Status Comments Brother 1 Alive Brother 2 Father Maternal Grandfather Maternal Grandmother Mother Paternal Grandfather Paternal Grandmother in childbirth Social History Tobacco Use Types Packs/Day Years Used Date Smoking Tobacco: Never Smokeless Tobacco: Never Alcohol Use Standard Drinks/Week Comments No 0 (1 standard drink = 0.6 oz pur e alcohol) [facility] Utilities Answer Date Recorded In the [...] and heating? Not hard at all 04/16/2025 [facility] - Occupational Stress [...] GED or equivalent No 04/16/2025 Preferred Language Togolese 04/16/2025 PHQ-2 Answer Date Recorded Patient Health Questionnaire-2 Score 0 04/16/2025 Comments No Sex and Gender Information Value Date Recorded Sex Assigned at Not on file Legal Sex Female 10:33 AM EDT Gender Identity Not on file Sexual Orientation Not on file Last Filed Vital Signs Vital Sign Reading [...] Mass Index 31.07 04/15/2025 3:03 PM EDT Plan of Treatment Health Maintenance Due Date Last Done Comments Annual Gynecologic Pelvic an d Breast Exam 1967 PAP SMEAR 1988 COLOGUARD 2012 COLON CANCER SCREENING 5 PRIYANK Desai SIGMOIDOSCOPY 2012 COLONOSCOPY 2012 [address] CANCER SCREENING 2012 CT COLONOGRAPHY 2012 FECAL OCCULT BLOOD TEST 2012 FIT Testing (1 year) 2012 TDAP/TD VACCINES (1 - Tdap) 09/28/2015 09/27/2015 ANNUAL PHYSICAL 02/09/2017 HEPATITIS C SCREENING 02/09/2017 Pneumococcal Vaccine 50+ (1 of 1 - PCV) 2017 ZOSTER VACCINE (1 of 2) 2017 MAMMOGRAM 05/18/2019 05/18/2017, 10/29, 10/29/2016 COVID-19 Vaccine (1 - 2023- season) 2024 INFLUENZA VACCINE 06/27/2025 Medical Devices Implanted Type Area Applications Programmer Device Identifier Shelf Expiration Date Model / Serial / Lot Peg Volr Gemjayson Smocarly Lk Ti 2x19mm - [id number] Implanted:Qty: 1 on 05/12/2022 by Devante Matthews Jr., MD at Implant Left: Wrist SKELETAL DYNAMICS [id number] / / N/A Plt Dist/Rad Geminus Nrw 3hl Lt - [id number] Implanted:Qty: 1 on 05/12/2022 by Devante Matthews Jr., MD at Implant Left: Wrist SKELETAL DYNAMICS [id number] / / N/A Scrw Geminus Pa Nl Ti 3.5x12mm - [id number] Implanted:Qty: 2 on 05/12/2022 by Devante Matthews Jr., MD at Implant Left: Wrist SKELETAL DYNAMICS [id number] / / N/A Peg Geminus Thrd Nl Ti 2.7x20mm - [id number] Implanted:Qty: 1 on 05/12/2022 by Devante Matthews Jr., MD at Implant Left: Wrist SKELETAL DYNAMICS [id number] / / N/A Peg Volr Geminus Smoth Lk Ti 2x18mm - [id number] Implanted:Qty: 1 on 05/12/2022 by Devante Matthews Jr., MD at Implant Left: Wrist SKELETAL DYNAMICS [id number] / / N/A Peg Volr Geminus Smoth Lk Ti 2x21mm - [id number] Implanted:Qty: 1 on 05/12/2022 by Devante Matthews Jr., MD at Implant Left: Wrist SKELETAL DYNAMICS [id number] / / N/A Peg Volr Geminus Smoth Lk Ti 2x17mm - [id number] Implanted:Qty: 1 on 05/12/2022 by Devante Matthews Jr., MD at Implant Left: Wrist SKELETAL DYNAMICS [id number] / / N/A Peg Volr Geminus Smoth Lk Ti 2x18mm - [id number] Implanted:Qty: 1 on 05/12/2022 by Devante Matthews Jr., MD at Implant Left: Wrist SKELETAL DYNAMICS [id number] / / NA/ Stnt Xience Saskia Everolimus Stan 3.5x23mm - [id number] Implanted:Qty: 1 on 08/15/2020 by Moiz Beaver MD at [facility] [id number] / / Explanted Type Area Applications Programmer Device Identifier Shelf Expiration Date Model / Serial / Lot Peg Chantell Swain Lk Ti 2x16mm - [id number] Explanted:Qty: 1 on 05/12/2022 by Devante Matthews Jr., MD at Implant Left: Wrist SKELETAL DYNAMICS [id number] / / N/A Kwire Std Tp 1.6c925op - [id number] Explanted:Qty: 3 on 05/12/2022 at Implant Left: Wrist SKELETAL DYNAMICS [id number] / / N/A Procedures Procedure Name Priority Date/Time Associated Diagnosis Comments CARDIAC CATHETERIZATION Routine 04/16/20 2:56 PM EDT HEPARIN ANTI XA Timed 04/16/2025 12:55 PM EDT HEPARIN ANTI XA Routine 04/16/2025 4:06 AM EDT HEPARIN ANTI XA Timed 04/15/2025 3:46 PM EDT ECHO COMPLETE W/ DOPPLER AND COLOR FLOW Routine 04/15/2025 3:03 PM EDT HEPARIN ANTI XA Timed 04/15/2025 8:20 AM EDT CBC AND DIFFERENTIAL Routine 04/15/2025 1:17 AM EDT CBC WITH AUTO DIFFERENTIAL Routine 04/15/2025 1:17 AM EDT TSH Routine 04/15/2025 1:17 AM EDT MAGNESIUM Routine 04/15/2025 1:17 AM EDT LIPID PANEL Routine 04/15/2025 1:17 AM EDT HEMOGLOBIN A1C Routine 04/15/2025 1:17 AM EDT COMPREHENSIVE METABOLIC PANEL Routine 04/15/2025 1:17 AM EDT HEPARIN ANTI XA Timed 04/15/2025 1:17 AM EDT APTT STAT 04/14/2025 6:24 PM EDT PROTIME-INR STAT 04/14/2025 6:24 PM EDT HEPARIN ANTI XA STAT 04/14/2025 6:[address] ANGIOGRAM CHEST PULMONARY EMBOLISM STAT 04/14/2025 4:08 PM EDT HIGH SENSITIVITIY TROPONIN T 1HR STAT 04/14/2025 2:34 PM EDT ECG 12-LEAD STAT 04/14/2025 2:28 PM EDT XR CHEST 1 VW STAT 04/14/2025 1:40 PM EDT LIGHT BLUE TOP STAT 04/14/2025 1:03 PM EDT STUBBS TOP STAT 04/14/2025 1:03 PM EDT GOLD TOP - SST STAT 04/14/2025 1:03 PM EDT LAVENDER TOP STAT 04/14/2025 1:03 PM EDT DK GREEN TOP STAT 04/14/2025 1:03 PM EDT CBC AND DIFFERENTIAL STAT 04/14/2025 1:03 PM EDT CBC WITH AUTO DIFFERENTIAL STAT 04/14/2025 1:03 PM EDT B-TYPE NATRIURETIC PEPTIDE STAT 04/14/2025 1:03 PM EDT LIPASE STAT 04/14/2025 1:03 PM EDT COMPREHENSIVE METABOLIC PANEL STAT 04/14/2025 1:03 PM EDT TROPONIN STAT 04/14/2025 1:03 PM EDT RAINBOW DRAW STAT 04/14/2025 1:03 PM EDT ECG 12-LEAD STAT 04/14/2025 12:54 PM EDT SCANNED - TELEMETRY 04/14/2025 1 2:51 PM EDT MAMMO DIAGNOSTIC BILATERAL W CAD Routine 05/18/2017 8:43 AM EDT Abnormal mammogram from Last 3 Months or Most Recently Relevant to Health Maintenance Results * LEFT HEART CATH (04/16/2025 2:56 [...] percutaneous anterior wall puncture technique. A 6 [place] African arterial sheath was placed in the right femoral artery using a modified Seldinger technique. Selective coronary arteriography was performed using the Margarette technique with a 6 [place] African 4 curved Margarette right catheter and a 6 [place] 4 curved Margarette left catheter. Nonionic contrast [...] * Heparin Anti-Xa (04/16/2025 12:55 PM EDT) Only the most recent of6 resultswithin the time period is included. Heparin Anti-Xa (UFH) 0.34 0.30 - 0.70 IU/ml 04/16/2025 3:25 PM EDT [facility] Blood Venipuncture / Unknown 04/16/2025 12:55 PM EDT 04/16/2025 1:54 PM EDT Raudel Castellanos PharmD LAB BLOOD ORDERABLES Fin al Result [facility]
[address] [place] [address], * ECHO COMPLETE W/ DOPPLER AND COLOR FLOW (04/15/2025 3:03 PM EDT) EF(MOD-bp) 53.4 % EF_3D-VOL 58.0 % LVIDd [...] is limited due to patient body habitus. us Jacy Retana PA-C CV ECHO ORDERABLES F inal Result * (ABNORMAL) CBC Auto Differential (04/15/2025 1:17 AM EDT) Only the most recent of2 resultswithin the time period is included. WBC 8.00 3.40 - 10.80 10*3/mm3 04/15/2025 1:45 AM EDT [facility] RBC 4.80 3.77 - 5.28 10*6/mm3 04/15/2025 1:45 AM EDT [facility] Hemoglobin 14.0 12.0 - 15.9 g/dL 04/15/2025 1:45 AM EDT [facility] Hematocrit 41.8 34.0 - 46.6 % 04/15/2025 1:45 AM EDT [facility] MCV 87.1 79.0 - 97.0 fL 04/15/2025 1:45 AM EDT [facility] MCH 29.2 26.6 - 33.0 pg 04/15/2025 1:45 AM EDT [facility] MCHC 33.5 31.5 - 35.7 g/dL 04/15/2025 1:45 AM EDT [facility] RDW 11.7(L) 12.3 - 15.4 % 04/15/2025 1:45 AM EDT [facility] RDW-SD 37.7 37.0 - 54.0 fl 04/15/2025 [facility] MPV 9.3 6.0 - 12.0 fL 04/15/2025 1:45 AM EDT [facility] Platelets 222 140 - 450 10*3/mm3 04/15/2025 1:45 AM EDT [facility] Neutrophil % 48.8 42.7 - 76.0 % 04/15/2025 1:45 AM EDT [facility] Lymphocyte % 38.8 19.6 - 45.3 % 04/15/2025 1:45 AM EDT [facility] Monocyte % 9.1 5.0 - 12.0 % 04/15/2025 1:45 AM EDT [facility] Eosinophil % 2.0 0.3 - 6.2 % 04/15/2025 1:45 AM EDT [facility] Basophil % 0.9 0.0 - 1.5 % 04/15/2025 1:45 AM EDT [facility] Immature Grans % 0.4 0.0 - 0.5 % 04/15/2025 1:45 AM EDT [facility] Neutrophils, Absolute 3.91 1.70 - 7.00 10*3/mm3 04/15/2025 1:45 AM EDT [facility] Lymphocytes, Absolute 3.10 0.70 - 3.10 10*3/mm3 04/15/2025 1:45 AM EDT [facility] Monocytes, Absolute 0.73 0.10 - 0.90 10*3/mm3 04/15/2025 1:45 AM EDT [facility] Eosinophils, Absolute 0.16 0.00 - 0.40 10*3/mm3 04/15/2025 1:45 AM EDT [facility] Basophils, Absolute 0.07 0.00 - 0.20 10*3/mm3 04/15/2025 1:45 AM EDT [facility] Immature Grans, Absolute 0.03 0.00 - 0.05 10*3/mm3 04/15/2025 1:45 AM EDT [facility] nRBC 0.0 0.0 - 0.2 /100 WBC 04/15/2025 1:45 AM EDT [facility] Blood Venipuncture / Unknown 04/15/2025 1:17 AM EDT 04/15/2025 1:42 AM EDT Collin Persaud APRN LAB BLOOD ORDERABLES Final R esult [facility]
[address] [place] [address], * TSH (04/15/2025 1:17 AM EDT) TSH 1.500 0.270 - 4.200 uIU/mL 04/15/2025 2:06 AM EDT [facility] Blood Venipuncture / Unknown 04/15/2025 1:17 AM EDT 04/15/2025 1:30 AM EDT Collin Persaud CUSTOMER RESPONSE REPRESENTATIVE LAB BLOOD ORDERABLES Final R esult [facility]
[address] [place] [address], * Magnesium (04/15/2025 1:17 AM EDT) Magnesium 2.0 1.6 - 2.6 mg/dL 04/15/2025 2:06 AM EDT [facility] Blood Venipuncture / Unknown 04/15/2025 1:17 AM EDT 04/15/2025 1:30 AM EDT Collin Persaud CUSTOMER RESPONSE REPRESENTATIVE LAB BLOOD ORDERABLES Final R esult Performing Organization Address [facility] Co de Phone Number [facility]
[address] [place] [address], * Hemoglobin A1c (04/15/2025 1:17 AM EDT) Hemoglobin A1C 5.23 4.80 - 5.60 % 04/15/2025 1:56 AM EDT [facility] Blood Venipuncture / Unknown 04/15/2025 1:17 AM EDT 04/15/2025 1:30 AM EDT Narrative [facility] - 04/15/2025 1:56 AM EDT Hemoglobin A1C Ranges: Increased Risk for Diabetes 5.7% to 6.4% Diabetes >= 6.5% Diabetic Goal < 7.0% Collin Persaud CUSTOMER RESPONSE REPRESENTATIVE LAB BLOOD ORDERABLES Final R esult Performing Organization Address City/[facility]/ZIP Co de Phone Number [facility]
[address] [place] [address], * (ABNORMAL) Lipid Panel (04/15/2025 1:17 AM EDT) Total Cholesterol 229(H) 0 - 200 mg/dL 04/15/2025 2:06 AM EDT [facility] Triglycerides 65 0 - 150 mg/dL 04/15/2025 2:06 AM EDT [facility] HDL Cholesterol 68(H) 40 - 60 mg/dL 04/15/2025 2:06 AM EDT [facility] LDL Cholesterol 150(H) 0 - 100 mg/dL 04/15/2025 2:06 AM EDT [facility] VLDL Cholesterol 11 5 - 40 mg/dL 04/15/2025 2:06 AM T [facility] LDL/HDL Ratio 2.18 04/15/2025 2:06 AM T [facility] Blood Venipuncture / Unknown 04/15/2025 1:17 AM EDT 04/15/2025 1:30 AM EDT Narrative [facility] - 04/15/2025 2:06 AM EDT Cholesterol [...] is calculated using the NIH LDL-C calculation. us Collin Persaud APRN LAB BLOOD ORDERABLES Final R esult [facility]
[address] [place] [address], * Comprehensive Metabolic Panel (04/15/2025 1:17 AM EDT) Only the most recent of2 resultswithin the time period is included. Glucose 89 65 - 99 mg/dL 04/15/2025 2:06 AM EDT [facility] BUN 12.4 6.0 - 20.0 mg/dL 04/15/2025 2:06 AM EDT [facility] Creatinine 0.72 0.57 - 1.00 mg/dL 04/15/2025 2:06 AM EDT [facility] Sodium 139 136 - 145 mmol/L 04/15/2025 2:06 AM EDT [facility] Potassium 3.9 3.5 - 5.2 mmol/L 04/15/2025 2:06 AM EDT [facility] Chloride 102 98 - 107 mmol/L 04/15/2025 2:06 AM EDT [facility] CO2 28.5 22.0 - 29.0 mmol/L 04/15/2025 2:06 AM EDT [facility] Calcium 9.0 8.6 - 10.5 mg/dL 04/15/2025 2:06 AM EDT [facility] Total Protein 6.5 6.0 - 8.5 g/dL 04/15/2025 2:06 AM EDT [facility] Albumin 3.9 3.5 - 5.2 g/dL 04/15/2025 2:06 AM EDT [facility] ALT (SGPT) 18 1 - 33 U/L 04/15/2025 2:06 AM EDT [facility] AST (SGOT) 27 1 - 32 U/L 04/15/2025 2:06 AM EDT [facility] Alkaline Phosphatase 80 39 - 117 U/L 04/15/2025 2:06 AM EDT [facility] Total Bilirubin 0.7 0.0 - 1.2 mg/dL 04/15/2025 2:06 AM EDT [facility] Globulin 2.6 gm/dL 04/15/2025 2:06 AM EDT [facility] Comment:Calculated Result A/G Ratio 1.5 g/dL 04/15/2025 2:06 AM EDT [facility] BUN/Creatinine Ratio 17.2 7.0 - 25.0 04/15/2025 2:06 AM EDT [facility] Anion Gap 8.5 5.0 - 15.0 mmol/L 04/15/2025 2:06 AM EDT [facility] eGFR 97.7 >60.0 mL/min/1.7 3 04/15/2025 2:06 AM EDT [facility] Blood Venipuncture / Unknown 04/15/2025 1:17 AM EDT 04/15/2025 1:30 AM EDT [facility] - 04/15/2025 2:06 AM EDT GFR [...] does not include race as a factor Collin Persaud APRN LAB BLOOD ORDERABLES Final R esult [facility]
[address] [place] [address], * (ABNORMAL) aPTT (04/14/2025 6:24 PM EDT) PTT 26.5(L) 60.0 - 90.0 seconds 04/14/2025 7:01 PM EDT [facility] Blood Venipuncture / Unknown 04/14/2025 6:24 PM EDT 04/14/2025 6:40 PM EDT Narrative [facility] - 04/14/2025 7:01 PM EDT PTT = The equivalent PTT values for the therapeutic range of heparin levels at 0.3 to 0.5 U/ml are 60 to 70 seconds. us Tommie Miranda LAB BLOOD ORDERABLES Fin al Result Performing Organization Address [facility] Phone Number [facility]
[address] [place] [address], * Protime-INR (04/14/2025 6:24 PM EDT) Protime 13.5 12.2 - 15.3 Seconds 04/14/2025 7:01 PM EDT [facility] INR 0.97 0.89 - 1.12 04/14/2025 7:01 PM EDT [facility] Blood Venipuncture / Unknown 04/14/2025 6:24 PM EDT 04/14/2025 6:40 PM EDT [facility] BLOOD ORDERABLES Fin al Result Performing Organization Address [facility] Phone Number [facility]
[address] [place] [address], * CT Angiogram Chest Pulmonary Embolism (04/14/2025 4:08 PM EDT) Anatomical Region Laterality Modality Chest N/A Computed Tomogra phy 04/14/2025 4:46 PM EDT Impressions 04/14/2025 4:56 PM EDT Impression: No evidence of pulmonary embolus. Electronically Signed: Gurwinder Kimball MD 04/14/2025 4:56 PM EDT Workstation ID: [id number] Narrative 04/14/2025 4:[address] ANGIOGRAM [...] MD 04/14/2025 4:56 PM EDT Workstation ID: [id number] Tommie Miranda DO IMG CT ORDERABLES Final Result * (ABNORMAL) High Sensitivity Troponin T 1Hr (04/14/2025 2:34 PM EDT) HS Troponin T 49(H) <14 ng/L 04/14/2025 3:29 PM EDT [facility] Troponin T Numeric Delta 35(HH) Abnormal if >/=3 ng/L 04/14/2025 3:29 PM EDT [facility] Troponin T % Delta 250(HH) Abnormal if >/= 20% 04/14/2025 3:29 PM EDT [facility] Blood Venipuncture / Unknown 04/14/2025 2:34 PM EDT 04/14/2025 2:49 PM EDT [facility] - 04/14/2025 3:29 PM EDT High [...] condition. Tommie Miranda DO LAB BLOOD ORDERABLES Barron bethea Result [facility]
[address] [id number], * ECG 12 Lead Chest Pain (04/14/2025 2:28 PM EDT) Only the most recent of2 resultswithin the time period is included. QT Interval 406 ms BH ECG QTC Interval 412 ms ECG 04/14/2025 [...] MD 04/14/2025 1:43 PM EDT Workstation ID: [id number] Narrative 04/14/2025 1:43 PM EDT XR CHEST [...] MD 04/14/2025 1:43 PM EDT Workstation ID: [id number] us Tommie Miranda DO IMG DIAGNOSTIC IMAGING O RDERABLES Final Result * Stubbs Top (04/14/2025 1:03 PM EDT) Extra Tube Hold for add-ons. 04/14/2025 1:16 PM EDT [facility] Comment:Auto resulted. Blood Venipuncture / Unknown 04/14/2025 1:03 PM EDT 04/14/2025 1:05 PM EDT Tommie Miranda LAB BLOOD ORDER ONLY Fin al Result Performing Organization Address City/[facility] Co de Phone Number [facility]
[address] [place] [address], [place] [phone] * Gold Top - SST (04/14/2025 1:03 PM EDT) Extra Tube Hold for add-ons. 04/14/2025 1:16 PM EDT [facility] Comment:Auto resulted. Blood Venipuncture / Unknown 04/14/2025 1:03 PM EDT 04/14/2025 1:05 PM EDT Tommie Miranda LAB BLOOD ORDER ONLY Fin al Result Performing Organization Address [facility] Co de Phone Number [facility]
[address] [place] [address], [place] [phone] * Green Top (Gel) (04/14/2025 1:03 PM EDT) Extra Tube Hold for add-ons. 04/14/2025 1:16 PM EDT [facility] Comment:Auto resulted. Blood Venipuncture / Unknown 04/14/2025 1:03 PM EDT 04/14/2025 1:05 PM EDT Tommie Arango DO LAB BLOOD ORDER ONLY Fin al Result Performing Organization Address City/[facility] Co de Phone Number [facility]
[address] [place] [address], [place] [phone] * Lavender Top (04/14/2025 1:03 PM EDT) Extra Tube hold for add-on 04/14/2025 1:16 PM EDT [facility] Comment:Auto resulted Blood Venipuncture / Unknown 04/14/2025 1:03 PM EDT 04/14/2025 1:05 PM EDT [facility] ONLY Fin al Result Performing Organization Address City/[facility]/ZIP Co de Phone Number [facility]
[address] [place] [address], * Light Blue Top (04/14/2025 1:03 PM EDT) Extra Tube Hold for add-ons. 04/14/2025 1:16 PM EDT [facility] Comment:Auto resulted Blood Venipuncture / Unknown 04/14/2025 1:03 PM EDT 04/14/2025 1:05 PM EDT Tommie Lopez [facility] LAB BLOOD ORDER ONLY Fin al Result Performing Organization Address City/[facility]/ZIP Co de Phone Number [facility]
[address] [place] [address], * (ABNORMAL) High Sensitivity Troponin T (04/14/2025 1:03 PM EDT) HS Troponin T 14(H) <14 ng/L 04/14/2025 1:33 PM EDT [facility] Blood Venipuncture / Unknown 04/14/2025 1:03 PM EDT 04/14/2025 1:05 PM EDT Narrative [facility] - 04/14/2025 1:33 PM EDT High [...] to an underlying chronic condition. Tommie Miranda LAB BLOOD ORDERABLES Fin al Result Performing Organization Address [facility] Hospital/[facility] Co de Phone Number [facility]
[address] [place] [address], * BNP (04/14/2025 1:03 PM EDT) proBNP 138.0 0.0 - 900.0 pg/mL 04/14/2025 1:33 PM EDT [facility] Blood Venipuncture / Unknown 04/14/2025 1:03 PM EDT 04/14/2025 1:05 PM EDT Narrative [facility] - 04/14/2025 1:33 PM EDT This [...] >1800 Stubbs 300-1800 Negative <300 Tommie Miranda LAB BLOOD ORDERABLES Fin al Result Performing Organization Address [facility] Co de Phone Number [facility]
[address] [place] [address], [place] [phone] * Lipase (04/14/2025 1:03 PM EDT) Lipase 21 13 - 60 U/L 04/14/2025 1:33 PM EDT [facility] Blood Venipuncture / Unknown 04/14/2025 1:03 PM EDT 04/14/2025 1:05 PM EDT Tommie Miranda DO LAB BLOOD ORDERABLES Fin al Result [facility]
[address] [place] [address], * Telemetry Scan (04/14/2025 12:51 PM EDT) [facility] New Onbase ECG ORDERABLES Final Result * Mammo Diagnostic Bilateral With CAD (05/18/2017 8:43 AM EDT) Anatomical Region Laterality Modality Breast Bilateral Mammography 05/18/2017 12:0 6 PM EDT Impressions 05/18/2017 5:37 PM EDT 1. Stable mammographic asymmetries being followed in the right breast. 2. A nodular asymmetry in the left lower outer quadrant on mammographic imaging likely correlates to a cyst on ultrasound imaging. Other asymmetries being followed in the left inferior breast are stable in mammographic imaging. RECOMMENDATION: Continued short interval bilateral mammographic follow-up. The patient will be due for bilateral mammographic imaging with tomosynthesis in 6 months. BI-RADS CATEGORY 3, PROBABLY BENIGN. CAD was utilized. The standard false-negative rate of mammography is between 10% and 25%. Complex patterns or increased breast density will markedly elevate the false-negative rate of mammography. A results letter, in lay terminology, will be given to the patient at the conclusion of the exam. _ Physician Order Diagnostic 6 Month follow up Mammogram and/or Breast Ultrasound. Diagnosis: Abnormal Mammogram This report was finalized on 05/18/2017 5:[address] Beatriz Thompson MD. Narrative 05/18/2017 5:37 PM EDT EXAMINATION: BILATERAL DIAGNOSTIC DIGITAL MAMMOGRAM AND LEFT BREAST ULTRASOUND HISTORY: 52-year-old patient undergoing short interval bilateral mammographic follow-up of asymmetries. The patient has no personal or family history of breast cancer and no current breast complaints. TECHNIQUE: Routine bilateral 2-D CC and MLO digital mammographic images were obtained. 2-D/3-D left MLO focal compression imaging was also performed. Furthermore, focused sonographic imaging was performed of the left lower outer quadrant. COMPARISON: Mammograms dated 09/16/2017 and 10/29/2016. FINDINGS: The breast tissue is heterogeneously dense, which may obscure small masses. The bilateral fibroglandular pattern is stable. Asymmetries being followed in the right inferior and medial breast are stable. There is a nodular asymmetry in the left inferior breast that persists on focal compression imaging. This finding is located in the left lower outer quadrant based on Tomosynthesis imaging. Other asymmetries in the left inferior breast are stable. Focused sonographic imaging of the left lower outer quadrant demonstrates scattered and clustered cysts. There is a 0.8 cm cyst in the 4:00 position that likely correlates to the nodular asymmetry noted on mammographic imaging. No suspicious sonographic findings were identified. us Francisco Crandall MD IMG MAMMOGRAPHY ORDERABLE S Final Result from Last 3 Months or Most Recently Relevant to Health Maintenance [facility] Member Subscriber Plan / Payer (Ef fective 2024-Present) Name:Kallie Maria Relation to Subscriber:Self Name:Kallie Maria Payer ID:[id number] (NAIC) Type:Not on file Address: [facility] [id number] [place] [id number] Advance Directives * CPR (Attempt to Resuscitate) (Latest Code Status on File) Date Activated Date Inactivated Comments 04/14/2025 5:59 PM 04/16/2025 8:43 PM Question Answer Comments Code Status (Patient has no pulse and is not breathing): CPR (Attempt to Resuscitate) Medical Interventions (Patie nt has pulse or is breathing): Full Support Level Of Support Discussed With: Patient * CPR (Attempt to Resuscitate) Date Activated Date Inactivated Comments 08/15/2020 9:22 AM 08/17/2020 12:16 PM Question Answer Comments Code Status (Patient has no pulse and is not breathing): CPR (Attempt to Resuscitate) Medical Interventions (Patie nt has pulse or is breathing): Full Care Teams Case Preparer And Liner Relationship Specialty Start Date End Date Nita Chanel DO [address] [place] [address] PCP - General Family Medicine 04/14/25
--- OUTSIDE RECORDS SUMMARY | 2025-04-19 18:48 | XMS_ITS | Continuity of Care Document ---
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 Plan of Treatment Reminders Order Date Submit Date Provider Last Modified By Organization Details Last Modified Time Details Appointments RECHECK 2024 08:00A M JANET HENDERSON PA-C Not available Not available Not available PHYSICAL EXAM 2025 09:00A M MIKEY ROJO DO Not available Not available Not available Lab None recorded. Referral None recorded. Procedures None recorded. Surgeries None recorded. Imaging None recorded. Medication Orders None recorded. Patient TargetsNo targets recorded. Patient InstructionsNo instructions recorded. Reason for Referral None Reported. Results Created Date Observation Date Name Description Value Unit Range Abnormal Flag Note LastModifiedBy Organization Detail LastModifiedTime 02/15/20 25 02/13/2025 elect rocar diogr am No observ ation record ed. BARCODE Not Available 2024 08:12:23 02/27/20 25 02/26/2025 CT, coron jonathan calci um score [facility] [address] [place] [address] Pk angulo Name: SCOTTIE angulo : [phone] Pk angulo 1 Orderi ng Provid er: JANET Alba EXAM DATE: 2024 EXAM: CT CARDIA [...] Navneet Patel MD on 02/27/20 8:12 AM [email or web address] [facility]iology [address] , [place], [address], 02/27/2025 13:54:46 04/06/2004/06/2025 US, carot id arter y No observ ation record ed. [email or web address] [facility] Cardiology [address], [place], [address], 04/06/2025 12:44:20 04/18/2004/12/2025 event monit or No observ ation record ed. [email or web address] Not Available 04/18 15:29:32 Result Notes None recorded. Problems Name Problem SNOMED Code Status Onset Date Resolution Date Notes Provider Name and Address Organization Details Recorded Time Inflamed seborrhei c keratosis 424895446 Active 2015 From Automated Load;Provi zenaida: Jon Astudillo;Ora tus: Active Not Available [facility] 03:25:10 Problem Notes None recorded. Procedures Surgical History Date Name Laterality Status Provider Name and Address Organization Details Recorded Time 02/14/20 EKG completed JANET HENDERSON PA-C [address] [place], [address], [facility] 02/13/2025 11:07:16 02/12/20 22 VAS - Art Dup - Upper Extremity completed LIS NEGRON MD [address] [place] [address], [phone], [facility] 02/11/2022 14:03:53 cholecystectomy completed Karen Mei [facility] 08/23/2019 10:51:42 open reduction of fracture with internal fixation completed NICK BRIDGES MD [address] [place] [address], [phone], [facility] 08/14/2022 15:12:41 open reduction of fracture with internal fixation completed NICK BRIDGES MD [address] [place] [address], [phone], [facility] 08/14/2022 15:13:26 inguinal herniorrhaphy completed NICK BRIDGES MD [address] [place] [address], [phone], [facility] 08/14/2022 15:14:09 Stent Placement completed Nneka Cole [facility] 01/16/2025 14:54:59 Imaging Results None recorded. Procedure Notes None recorded. Medical Equipment None Reported. Allergies Allergen ID Allergen Name Allergen Category Reaction Reaction Severity Criticality Documentation Date Start Date Code Code System Note Provider Name and Address Organization Details Recorded Time 917798 codeine medicatio n vomiting Not available Not available 08/20/20162008 2670 RxNorm SHELBI KATZ PA-C [address] [place] [address], [phone], [facility] 2 12:54:08 458882 ketamine medicatio n Not available Not available Not available 05/05/2022 6130 RxNorm verti go Josue Wright [facility] 2 12:24:46 242657 Avelox medicatio n hallucina tions Not available Not available 05/05/2022 10373 6 RxNorm Josue Wright [facility] 2 12:25:06 718109 propofol medicatio n Not available Not available Not available 11/20/2022 8782 RxNorm Anahi Rodriguez [facility] 3 11:14:57 Medications Name Sig Start Date [...] Updated DateTime 5 162.56 cm 32.4 kg/m2 03893.9 6 g 98.1 [degF] 76 /min 16 /min 97 % 97 % 130/86 mm[Hg] Della Braun [facility] 5 11:33:58 Social History Question Answer Notes LastModified by Organizat ion Details LastModified Time Tobacco Smoking Status [facility]2019 10:51:28 What Is Your Level Of Caffeine Consumption? None [email or web address] Information not available 05/05/2022 What Was The [...] use any illicit or recreational drugs? No [email or web address] Information not available 05/05/2022 Do you or have you ever used any other forms of tobacco or nicotine? No [email or web address] Information not available 05/05/2022 What is your level of alcohol consumption? None [email or web address] Information not available 05/05/2022 Are you currently [...] Not available 10:51:24 Brother Heart disease 50 Not available 2024 14:33:12 Brother Diabetes mellitus hvallance Not available 2018 10:51:10 Brother Cerebrovascu lar accident hvallance Not available 10:51:24 Brother Heart disease 45 51 [email or web address] Not available 2024 14:33:12 Paternal Uncle Malignant neoplasm of lung [email or web address] Not available 2021 15:10:32 Medical History Condition Response Coronary Artery Disease Y Gout N Other Y Atrial Fibrillation N Kidney Stones N Hyperthyroidism N Blood Transfusion N Emphysema N Depression N COPD N Pneumonia N Venereal Disease N Seasonal Allergies Y Anxiety Disorder N Muscle, Joint, or Bone Problems N Vision or Eye Problems Y Arthritis N Previous injury to face Y Polyps N Infertility N Blood Clot Y Cancer Y Varicosities N Stroke N Neurologic Disorder N Headaches N Fibromyalgia N Kidney Disease N Heart Problems Y [...] Chicken Pox Y Thrombophilias N Hernia Y Lung Disease N Hypothyroidism N Glaucoma N Nasal or Sinus Problems Y Breast Problem N Measles N Difficulty Swallowing N Genitourinary Disease N Meniere's disease N Hearing Loss N Radiation Therapy N Endometriosis N Bladder or Kidney Problems N High Cholesterol N Liver Disease N Panic Disorder N Allergies/Hayfever Y Mumps N Parkinson's Disease N Thyroid Problems N GI Problems N Anemia Y Heart Attack (ID) Y Mental Illness N Psychiatric Illness N Ovarian Cancer N Diabetes N Seizures/Epilepsy N Hyperlipidemia N Eczema N Diverticulitis N Hepatitis B N Rubella N Epilepsy/Seizures N Reflux/GERD N Sleep Apnea N Heart Disease N Pre-Eclampsia N Hypertension N Osteoporosis N Gynecological HistoryNo gynecological history recorded. Obstetrics History GPAL:G 2 P 2 0 0 0 Type Value Full Term 2 Total 2 Immunizations Vaccine Type Date Status Note Provider Nam e and Address Organization Details Recorded Time Td(adult) unspecified formulation 09/27/2015 completed NICK BRIDGES MD [address] [place] [address], [phone], [facility] 08/14/2022 15:09:35 Past Encounters Encounter ID Performer Location Encounter Start Date Encounter Closed Date Diagnosis/Indication Diagnosis SNOMED-CT Code Diagnosis ICD10 Code Diagnosis Note [id number] JANET HENDERSON PA-C CARDIOLOG [address] [place] [address] 02/13/2025 07:46:34 02/13/2025 08:39:38 Family history of premature coronary heart disease 097917726 Z82.49 father of ID at 72, had 2-3 MIs before this.niesha shaw had ID at age 41, now s/p CABG.Broth er also with CABG. Coronary atherosclerosis 932146191 I25.10 CAD s/p PCI to LAD XIENCE naveed 3.5 x 07/2020Pat ient has had no recurrence of [...] needed Body mass index 30+ - obesity 197891672 E66.9 BMI today is 31.8Advise d patient on the importance of healthy diet and aerobic exercise. Goal of 120-150 mins per week. Vasovagal syncope 456862 005 R55 Patient with history of vasovagal syncope, however has never had carotid US to evaluate for stenosis that could be causing symptoms. Will schedule carotid US today [id number] WIN GALVAN PA-C [facility] [address] [place] [address] 02/27/2025 11:30:07 02/27/2025 11:49:13 Left sided abdominal pain 862315786 R10.9 Appears to be muscular skeletal. She can try heat and/or diclofenac gel to the area. If this does not resolve the symptoms return to clinic. She cannot give a urine sample in office today Health Concerns Section Related Observation LastModified by Organization Detai ls LastModified Time None Recorded Concern Status LastModified by Organization Details LastModified Time None Recorded Payers Encounter Date Sequence Insurance Name Policy Number Policy Pradhan Covered Member ID Pradhan Member ID Guarantor Name 02/27/2025 1 [employer] [id number] Scottie Maria [id number] Scottie Maria Notes Date Note Type Note Provider Name and Address Organization Details Recorded Time 02/27/2025 text/html ROS as noted in the HPI [...] recent abx use WIN GALVAN PA-C [address] [place], [address], [place] [facility] 02/27/2025 11:47:21 OBGyn Episode No OBEpisode recorded.
--- NOTE | 2025-04-19 19:11 | PC.NURSE ---
ED provider at the bedside to POCUS
[2025-04-19 19:27] VITALS: BP 145/86; PULSE 71; RESP 16; TEMP 36.9; O2SAT 100
== END 2025-04-19 19:28 | disposition home or self-care (01) ==
PROVIDERS: Emergency Provider Student in an Organized Health Care Education/Training Program; PCP Family Medicine
DX: T80.1XXA Vascular complications following infusion, transfusion and therapeutic injection, initial encounter (principal); I80.8 Phlebitis and thrombophlebitis of other sites
CPT/HCPCS: 99284